=== PATIENT | male | born 1965 | race Caucasian/White ===

== ENCOUNTER 2020-04-19 21:37 | Inpatient (IN) | payer MEDICARE, MEDICAID ==
[~2020-04-19] VITALS: Ht 180.3 cm; Wt 87.8 kg
[~2020-04-19 21:37] MED LIST: ASPI81TA26 PO; ATOR1TAB19 PO; HumaLOG INSULIN (NovoLOG) PER UNIT SC SCH; LIDO1PAD TOP; OXYB15TA14 PO; SODI325T9 PO
[2020-04-20 00:10] VITALS: BP 106/45
[2020-04-20] MEDS ORDERED: ACETAMINOPHEN TAB 650MG DOSE (2X325MG) PO PRN (00:45)
[2020-04-20] MEDS ORDERED: GLUCAGON INJ 1MG VIAL SC PRN (00:45)
[2020-04-20] MEDS ORDERED: DEXTROSE 50% 50 ML SYRINGE IV PRN (00:45)
[2020-04-20] MEDS ORDERED: MAALOX 30 ML SUSP *UDC PO PRN (00:45)
[2020-04-20] MEDS ORDERED: VANCOMYCIN HCL 1,000 MG, VIAL MATE ADAPTER 1 EACH in NS 250 ML IV SCH (00:45)
[2020-04-20] MEDS ORDERED: GLUCOSE 4GM CHEW TABLET PO PRN (00:45)
[2020-04-20] MEDS ORDERED: FOSF3PAC2 PO (01:19)
[2020-04-20] MEDS ORDERED: C 50TAB PO (01:19)
[2020-04-20] MEDS ORDERED: GABA-1171 PO (01:19)
[2020-04-20] MEDS ORDERED: LIDO1PAD TOP (01:19)
[2020-04-20] MEDS ORDERED: VITA50005 PO (01:19)
[2020-04-20] MEDS ORDERED: POTA10CA32 PO (01:19)
[2020-04-20] MEDS ORDERED: LOMO2.5T PO (01:19)
[2020-04-20 02:07] LABS: HEMOGLOBIN A1c 5.4 %
[2020-04-20] MEDS ORDERED: LIDOCAINE 5% (LIDODERM) PATCH TOP PRN (02:20)
[2020-04-20] MEDS ORDERED: LOMOTIL 2.5MG/0.025MG TABLET PO PRN (02:20)
[2020-04-20] MEDS ORDERED: GABAPENTIN 100 MG CAP PO PRN (02:20)
[2020-04-20] MEDS: ATORVASTATIN 10 MG TAB PO SCH ×2 (02:20→22:11)
[2020-04-20 02:34] LABS: ALBUMIN 1.4 GM/DL (3.2-5.2); BILIRUBIN,TOTAL 0.2 MG/DL (0.2-1.0); CALCIUM LEVEL 7.5 MG/DL (8.5-10.1); CREATININE FOR GFR 4.64 MG/DL (0.70-1.30); GLOMERULAR FILTRATION RATE 14.1 (>56); POTASSIUM SERUM 3.3 MEQ/L (3.5-5.1); TOTAL PROTEIN 6.8 GM/DL (6.4-8.2)
[2020-04-20 02:57] LABS: BASO # 0.1 10^3/uL (0.0-0.2); BASO % 0.5 % (0.0-1.0); EOS # 0.4 10^3/uL (0.0-0.5); EOS % 1.9 % (0.0-3.0); HEMATOCRIT 30.5 % (42.0-52.0); HEMOGLOBIN 9.3 g/dl (13.5-17.5); LYMPH # 3.2 10^3/uL (1.5-5.0); LYMPH % 15.5 % (24.0-44.0); MEAN CORPUSCULAR HEMOGLOBIN 25.9 pg (27.0-33.0); MEAN CORPUSCULAR HGB CONC 30.5 g/dl (32.0-36.5); MONO # 0.8 10^3/uL (0.0-0.8); MONO % 3.8 % (2.0-8.0); NEUTROPHILS # 15.9 10^3/uL (1.5-8.5); NEUTROPHILS % 77.8 % (36.0-66.0); PLATELET COUNT, AUTOMATED 401 10^3/uL (150-450); RED BLOOD COUNT 3.59 10^6/uL (4.30-6.10); WHITE BLOOD COUNT 20.4 10^3/uL (4.0-10.0)
[2020-04-20] MEDS: POTASSIUM CHLORIDE 10 MEQ SR TABLET PO SCH ×3 (03:28→22:11)
[2020-04-20 06:00] VITALS: BP 104/52
--- NOTE | 2020-04-20 07:12 | HPEPDOC ---
[facility] Medical History & Physical Date of Admission Apr 20, 2020 Date of Service: Apr 20, 2020 Attending Physician: MARGARET HIGH MD History and Physical TIME OF SERVICE: 130am CHIEF COMPLAINT: sent to hospital by director financial analysis HISTORY OF PRESENT ILLNESS: This 64 yr old bed bound M has a right lateral malleolus ulcer, two right groin ulcers and large abdominal wound that occurred as a result of an adverse reaction to heparin; he is followed by . He was sent to [facility] by his director financial analysis who noticed some discharge leaking out of one of his groin wounds. The patient was evaluated by in the ER who requested transfer to [facility] because the pt is on PD and they dont have a Engraving Plate Maker. Per the patients vital signs were wnl. The 7main abnormalities in the patients blood work included a WBC# of 21, Hg of 9 & K of 2.1 and lactic acid was 1.5. His Cr and BUN were also elevated. CT of the abd/pelvis showed enlarged LN but no abscesses; the patient was started on Vancomycin and Zosyn. At the time of my evaluation the patient denied having f/c/n//v or an increased amount of pain from the wounds. He added that his WBC # is chronically elevated and that he was evaluated by a telecommunications network engineer for this in the past. REVIEW OF SYSTEMS: 12-point review of systems negative except as listed in HPI PAST MEDICAL/ SURGICAL HISTORY: MS complicated by paraplegia & neurogenic bladder ? 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 HOME MEDICATIONS: Please see below. PHYSICAL EXAMINATION: Vital Signs Date Time Temp Pulse Resp B/P (MAP) Pulse Ox O2 Delivery O2 Flow Rate FiO2 04/20/20 00:10 96.7 90 20 106/45 (65) 98 Room Air GENERAL APPEARANCE: well nourished & developed / NAD HEENT: EOMI / MMM&P CARDIOVASCULAR: RRR/NMG LUNGS: CTAB on RA ABDOMEN: obese/ / (the patient showed me a picture of his abdominal wound which is large and extends to the muscular layers of the abdomen) MUSCULOSKELETAL: L AKA / he is not able to lift his R leg / his right hand is weak INTEGUMENT: wound at right ankle covered with clean and dry dressings / 2 wounds at right upper mid thigh covered with clean and dry dressings NEUROLOGICAL: CN 2-12 grossly intact / speech not dysarthric PSYCHIATRIC: A&O x 3 /able to understand and follow all commands LABORATORY DATA: 04/20/20 01:41 04/20/20 02:50 IMAGING: will ask RNs to have images from CT scan uploaded into our system MICROBIOLOGY: Blood cx pending ASSESSMENT: is a 64 yr old w a hx of MS, ESRD on PD, HTN, PVD and multiple wounds who was stent from [facility] where he presented for evaluation of an infected chronic groin wound; transfer was requested to [facility] for Nephro eval bc he is on PD. PLAN: 1 Chronic right lateral malleolus ulcer, two right groin ulcers and large abdominal wounds Plan: admit to medical floor / will hold off additional abx pending eval by / will ask RNs to have images uploaded 2 Acute Anemia Plan f/u CBC, iron studies, stool occult and SFRT 3 Chronic leukocytosis Reviewed blood work in [facility] WBC # has been elevated since 2015 Plan: f/u blood cx 4 Chronic Hypokalemia c/w K supplements 5 ESRD on PD Nephro consult 6 PVD Aspirin & Aspirin 7 Neuropathy Gabapentin DVT px w SCDs/TEDs Dispo: home after at least 2 midnights stay Home Medications Scheduled Ascorbic Acid (Vitamin C) 500 Mg Tablet, 500 MG PO DAILY Aspirin (Aspirin EC) 81 Mg Tablet.dr, 81 MG PO DAILY Atorvastatin Calcium (Atorvastatin Calcium) 10 Mg Tablet, 10 MG PO QHS Ergocalciferol (Vitamin D2) (Vitamin D2) 50,000 Units Cap, 50,000 UNITS PO QWEEK SUNDAYS Fosfomycin Tromethamine (Fosfomycin Tromethamine) 3 Gram Packet, 3 GM PO QWEEK FRIDAYS Potassium Chloride (Potassium Chloride) 10 Meq Capsule.er, 20 MEQ PO BID Scheduled PRN Diphenoxylate HCl/Atropine (Lomotil 2.5-0.025 mg Tablet) 1 Each Tablet, 1 TAB PO TID PRN for DIARRHEA Gabapentin (Gabapentin) 100 Mg Capsule, 100 MG PO TID PRN for PAIN Lidocaine (Lidocaine) 5% Adh..patch, 1 PATCH TOP DAILY PRN for PAIN APPLY TO RIGHT KNEE, RIGHT ANKLE OR BACK Allergies Coded Allergies: latex (Verified Allergy, Intermediate, 12/18/19) heparin (Verified Allergy, Mild, 12/18/19) A-FIB/CHADSVASC A-FIB History Current/History of A-Fib/PAF?: No Current PO Anticoag Therapy: MARGARET Buckley MD Apr 20, 2020 07:12
[2020-04-20] MEDS ORDERED: HumaLOG INSULIN (NovoLOG) PER UNIT SC SCH (07:30)
[2020-04-20] MEDS: ASCORBIC ACID 500 MG TAB PO SCH (09:43)
[2020-04-20] MEDS: ASPIRIN 81 MG ENTERIC TAB PO SCH (09:43)
[2020-04-20] MEDS ORDERED: ONDANSETRON 4MG/2ML VIAL IV PRN (12:00)
--- NOTE | 2020-04-20 12:33 | CR ---
CONSULTATION DATE: 04/20/2020 REQUESTING PHYSICIAN: MARGARET HIGH MD REASON FOR CONSULTATION: Management of endstage renal disease on peritoneal dialysis. CHIEF COMPLAINT: Infected wound. HISTORY OF PRESENT ILLNESS: Mr. Mena is well-known to me. He is a 54-year-old male with endstage renal disease on peritoneal dialysis and multiple sclerosis complicated by paraplegia, chronic bed-ridden state and neurogenic bladder requiring suprapubic catheterization, peripheral vascular disease, recurrent chronic wounds, history of remote diabetes, and other comorbid conditions mentioned below. The patient sees Dr. Castanon for wound care including two right groin ulcers and an abdominal wound as well. He was sent to the hospital by his Wound Care Nurse for concern of some purulent discharge from one of the right groin wounds. Initially, he went to [facility] and he was transferred to [facility] for dialysis during his hospitalization. Laboratory studies showed leukocytosis with white count of 20,000, mild anemia with iron deficiency and laboratory studies that are consistent with his endstage renal disease. The patient is pending a wound consult with Dr. Castanon and he was started on broad spectrum empiric antibiotics and Nephrology evaluation was requested for the management of his endstage renal failure on peritoneal dialysis. PAST MEDICAL AND PAST SURGICAL HISTORY: Multiple sclerosis complicated by paraplegia and neurogenic bladder, status post suprapubic catheter placement, endstage renal disease on peritoneal dialysis with peritoneal dialysis catheter, hypertension, peripheral vascular disease, history of line infection, left above knee amputation, chronic right lateral malleolus ulcer, groin ulcers, abdominal wound, diabetic neuropathy, remote history of diabetes mellitus, history of obesity, history of scrotal gangrene and status post pacemaker placement, anemia of chronic renal failure along with iron deficiency, secondary hyperparathyroidism of renal origin. SOCIAL HISTORY: He is disabled. He does not smoke, drink or use drugs. FAMILY HISTORY: No family history of endstage renal disease. ALLERGIES: Heparin and latex. HOME MEDICATIONS: 1. Vitamin C 500 mg p.o. daily. 2. Aspirin 81 mg p.o. daily. 3. Atorvastatin 10 mg p.o. q.h.s. 4. Vitamin D2 50,000 units p.o. q. weekly. 5. Fosfomycin 3 gram packet once a week on Sunday. 6. Potassium chloride 20 mEq p.o. twice daily. 7. Gabapentin p.r.n. REVIEW OF SYSTEMS: Constitutional: He denies fevers or chills. Eyes: He denies visual changes or tearing. ENT: He denies odynophagia or rhinorrhea. Cardiac: He denies chest pain or palpitations. He has significant peripheral vascular disease. Respiratory: He denies shortness of breath or cough. Gastrointestinal: He denies nausea, vomiting or diarrhea. Genitourinary: He reports chronic suprapubic catheter. Endocrine: He has secondary hyperthyroidism of renal origin. He has a remote history of diabetes. Neurologic: Multiple sclerosis, paraplegia. Musculoskeletal: He is chronically bed-ridden. He has a left above the knee amputation. He denies any swelling in the right lower extremity. Skin and soft tissue: He reports chronic wounds and ulcers for which he follows with wound care. Hematologic: He reports anemia and allergy to iron. He denies anticoagulant use. The remainder of review of systems is negative or as per HPI. PHYSICAL EXAMINATION: VITAL SIGNS: Temperature is 97.5, pulse is 105, respiratory rate is 20, blood pressure is 104/52, saturating 96% on room air. GENERAL: Patient is seen lying completely flat in bed with the head of the bed not elevated at all, appears older than stated age and chronically ill. HEENT: Extraocular muscles are intact. Tongue is moist. NECK: Supple. Jugular veins are not elevated. HEART: Heart sounds are mildly tachycardic, S1 and S2. There is no edema in the right lower extremity nor in the left stump. LUNGS: Breath sounds are clear to auscultation bilaterally. No crackles or rales. He is sitting comfortable on room air. ABDOMEN: Obese, there is peritoneal dialysis catheter with intact exit site and he has a suprapubic catheter draining urine. MUSCULOSKELETAL: There is a left above the knee amputation. His right leg has no edema. There are dressings on his groin wounds on the right side. He has decreased lean muscle mass. NEUROLOGIC: He is oriented x3, interactive and at baseline mentation. PSYCHIATRIC: Appropriate mood and affect. LABORATORY DATA: Sodium is 133, potassium is 3.3, BUN 47, creatinine 4.6, bicarbonate 23, iron is 20, transferrin saturation is 22%, albumin is 1.4, hemoglobin 9.3, white count is 20. Blood cultures are pending. INPATIENT MEDICATIONS: Tylenol p.r.n., Mylanta p.r.n., vitamin C 500 mg p.o. daily, aspirin 81 mg p.o. daily, atorvastatin 10 mg p.o. q.h.s., Fosfomycin 3 grams p.o. on Fridays, Gabapentin p.r.n., potassium chloride 20 mEq p.o. b.i.d. vitamin D 50,000 units p.o. Sunday. PROBLEMS: 1. Endstage renal disease on peritoneal dialysis. Orders are written for peritoneal dialysis with five exchanges daily with 2 liter volume of each exchange with 2.5% Dianeal. His volume status is well-compensated. He continues on his chronic potassium supplementation and his electrolytes are otherwise acceptable. 2. Anemia related to chronic renal failure and chronic iron deficiency. We have tried giving him Venofer in the outpatient setting but the patient could not tolerate it. He also could not tolerate oral iron. He receives Mircera and he is not yet due for a repeat dose. If his stay in the hospital is prolonged, I will order Aranesp. 3. Hypokalemia, continue current potassium supplementation and continue peritoneal dialysis prescription. 4. Chronic wound. The patient is hemodynamically stable. He has a leukocytosis but it appears to be somewhat chronic. He is pending a teleconsult with Dr. Castanon and antibiotics will be per the primary service. His albumin is very low. He is encouraged for a protein rich diet to help with his long-term wound healing. His blood cultures are pending. Thank you for involving me in the care of Mr. Mena, I will be happy to follow him along with you.
--- NOTE | 2020-04-20 12:43 | IPNPDOC ---
Text Note Date of Service The patient was seen on 04/20/20. NOTE SUBJECTIVE: -No acute complaints this AM -Afebrile, normotensive, on room air. Reports that he presented to the hospital after his wound care nurse suggested it for evaluation of his chronic wounds. Will consult Dr. Castanon who sees him in the outpatient setting OBJECTIVE: GENERAL APPEARANCE: chronically debilitated appearing, not ill appearing at this time, NAD HEENT: NCAT, PERRLA, EOMI CARDIOVASCULAR: RRR/NMG LUNGS: CTAB on RA ABDOMEN: Obese. Multiple dressings for abdominal wall wounds. Has PD catheter in place. Showed me a picture of his abdominal wound which is large and extends to the muscular layers of the abdomen and reported that it started after a heparin injection. MUSCULOSKELETAL: L AKA. R leg and right hand chronic weakness INTEGUMENT: wound at right ankle covered with clean and dry dressings / 2 wounds at right upper mid thigh covered with clean and dry dressings NEUROLOGICAL: CN 2-12 grossly intact / speech not dysarthric PSYCHIATRIC: A&O x 3 /able to understand and follow all commands LABORATORY DATA: Reviewed WBC 20.4 MICROBIOLOGY: Blood cx NGTD ASSESSMENT: 64 yr old w a hx of MS, ESRD on PD, HTN, PVD and multiple wounds who was sent f [facility] where he presented for evaluation of an infected chronic groin wound; transfer was requested to [facility] for Nephro eval bc he is on PD. PLAN: 1 Chronic right lateral malleolus ulcer, two right groin ulcers and large abdominal wounds -hold off additional abx pending eval by -Has a history of chronic leukocytosis so will await Lg schulz, BCx that will direct abx therapy initiation. Will also check ESR and CRP 2 Acute Anemia -Has known JONATHON but intolerant to PO iron -on aranesp per nephrology -anemia at recent baseline -f/u anemia studies 3 Chronic leukocytosis -Reviewed blood work in [facility] WBC # has been elevated since 2015 -f/u blood cx -F/u Dr. Lg schulz 4 Chronic Hypokalemia c/w K supplements 5 ESRD on PD Nephro consult 6 PVD Aspirin & Aspirin 7 Neuropathy Gabapentin DVT px w SCDs/TEDs Dispo: home after at least 2 midnights stay VS,Fishbone, I+O VS, Fishbone, I+O Laboratory Tests 04/20/20 01:41 04/20/20 02:50 Vital Signs Date Time Temp Pulse Resp B/P (MAP) Pulse Ox O2 Delivery O2 Flow Rate FiO2 04/20/20 06:00 97.5 105 20 104/52 (69) 96 04/20/20 00:10 Room Air I&O- Last 24 Hours up to 6 AM 04/20/20 06:00 Intake Total 180 ml Output Total 100 ml Balance 80 ml JUDI HANSON MD Apr 20, 2020 12:43
[2020-04-20 14:00] VITALS: BP 103/48
[2020-04-20] MEDS: NYSTATIN 100,000 UNITS/GM TOPICAL PWD 15 GM TOP SCH (18:19)
[2020-04-20] MEDS: **NOTE PATIENT COMMENT** MISC XX SCH (21:00)
[2020-04-20 22:00] VITALS: BP 101/52
[2020-04-21 06:00] VITALS: BP 109/48
[2020-04-21 06:01] LABS: HEMATOCRIT 28.2 % (42.0-52.0); HEMOGLOBIN 8.6 g/dl (13.5-17.5); MEAN CORPUSCULAR HEMOGLOBIN 26.1 pg (27.0-33.0); MEAN CORPUSCULAR HGB CONC 30.5 g/dl (32.0-36.5); MEAN CORPUSCULAR VOLUME 85.5 fl (80.0-96.0); PLATELET COUNT, AUTOMATED 397 10^3/uL (150-450); WHITE BLOOD COUNT 14.4 10^3/uL (4.0-10.0)
[2020-04-21 06:16] LABS: CALCIUM LEVEL 7.4 MG/DL (8.5-10.1); CREATININE FOR GFR 4.52 MG/DL (0.70-1.30); GLOMERULAR FILTRATION RATE 14.5 (>56); POTASSIUM SERUM 3.4 MEQ/L (3.5-5.1)
[2020-04-21] MEDS: ASCORBIC ACID 500 MG TAB PO SCH (08:52)
[2020-04-21] MEDS: ASPIRIN 81 MG ENTERIC TAB PO SCH (08:52)
[2020-04-21] MEDS: NYSTATIN 100,000 UNITS/GM TOPICAL PWD 15 GM TOP SCH ×2 (08:52→21:44)
[2020-04-21] MEDS: POTASSIUM CHLORIDE 10 MEQ SR TABLET PO SCH ×2 (08:52→21:44)
--- NOTE | 2020-04-21 09:48 | CR ---
ADVANCED WOUND CARE CONSULTATION VIA TELEMEDICINE DATE: 04/20/2020 CONSULT REQUESTED BY: Dr. Dubose. REASON FOR CONSULTATION: Wound care recommendations. HISTORY OF PRESENT ILLNESS: A 54-year-old male with advanced MS, bedridden, has been seen in the clinic for multiple pressure injuries and skin wounds. These have been treated in the past with debridement at our clinic and the use of appropriate medicated foam dressings. Patient has missed several appointments due to transportation issues and compliance issues, but when last seen all wounds were stable and treatable as an outpatient. I asked the patient why he was hospitalized and he dictated a visiting nurse told him his potassium was low and that his wounds were a problem. Admitting potassium was 2.2, which has now been improved with supplements. Survey of his wounds does not indicate a reason for hospitalization. There is no indication for I.V. antibiotics for his wounds treatment. Specifically, the patient has a large abdominal wound measuring 17.5 cm x 9.5 cm with a wound depth of 0.6 cm. This wound has been debrided in the past. There is an area of necrotic full thickness tissue on the superior portion. He has had this in the past and this is easily excised with scissors and forceps and can be done in the clinic when he is discharged or if need be a surgical consult can be obtained. Patient has a right groin wound measuring 3.0 cm x 1.5 cm and a right lateral malleolar wound measuring 1.0 cm x 1.0 cm. Patient has intertrigo of the inguinal areas involving skin folds as he is massively obese. Treatment for all wounds: cleaned with Vashe wound cleanser for 10 minutes, then wounds can be covered with Hydrofera Blue transfer and an extra absorb outer dressing. If transfer is not available, Hydrofera Blue Classic can be substituted. Dressing should be changed on an every other day basis. InterDry should be used for the intertrigo wounds. This is available in the hospital, it comes in a sheet. It is placed between the skin folds with approximately 3 to 4 cm of the product exposed to the air, this allows for wicking, the product is medicated with silver and is quite affective in this treatment for this problem. Intertrigo is caused by moisture and skin friction with a secondary bacterial and/or fungal component. Nystatin is not indicated; this will not absorb moisture cakes, is messy. When the patient is ready for discharge, please notify us and he can be followed up at our clinic for appropriate wound care. Thank you for this consult. SILVESTRE
--- NOTE | 2020-04-21 12:52 | IPNPDOC ---
Text Note Date of Service The patient was seen on 04/21/20. NOTE SUBJECTIVE: -No acute complaints this AM -Afebrile, normotensive, on room air. -Had wound consult with Dr. Castanon--> consulting gen surg this AM to evaluate abdominal wounds OBJECTIVE: GENERAL APPEARANCE: chronically debilitated appearing, not ill appearing at this time, NAD HEENT: NCAT, PERRLA, EOMI CARDIOVASCULAR: RRR/NMG LUNGS: CTAB on RA ABDOMEN: Obese. Multiple dressings for abdominal wall wounds. Has PD catheter in place. Showed me a picture of his abdominal wound which is large and extends to the muscular layers of the abdomen and reported that it started after a heparin injection. MUSCULOSKELETAL: L AKA. R leg and right hand chronic weakness INTEGUMENT: wound at right ankle covered with clean and dry dressings / 2 wounds at right upper mid thigh covered with clean and dry dressings NEUROLOGICAL: CN 2-12 grossly intact / speech not dysarthric PSYCHIATRIC: A&O x 3 /able to understand and follow all commands LABORATORY DATA: Reviewed WBC 14 MICROBIOLOGY: Blood cx NGTD ASSESSMENT: 64 yr old w a hx of MS, ESRD on PD, HTN, PVD and multiple wounds who was sent from [facility] where he presented for evaluation of an infected chronic groin wound; transfer was requested to [facility] for Nephro eval bc he is on PD. PLAN: 1 Chronic right lateral malleolus ulcer, two right groin ulcers and large abdominal wounds -hold off additional abx pending eval by gen surg -Trend ESR and CRP 2 Acute Anemia -Has known JONATHON but intolerant to PO iron -on aranesp per nephrology -anemia at recent baseline -f/u anemia studies 3 Chronic leukocytosis -[facility] WBC # has been elevated since 2015 -f/u blood cx -F/u surgical eval 4 Chronic Hypokalemia c/w K supplements 5 ESRD on PD Nephro consult 6 PVD Aspirin & Aspirin 7 Neuropathy Gabapentin DVT px w SCDs/TEDs Dispo: home after at least 2 midnights stay VS,Fishbone, I+O VS, Fishbone, I+O Laboratory Tests 04/21/20 05:40 Vital Signs Date Time Temp Pulse Resp B/P (MAP) Pulse Ox O2 Delivery O2 Flow Rate FiO2 04/21/20 06:00 97.1 91 20 109/48 (68) 96 04/20/20 14:00 Room Air I&O- Last 24 Hours up to 6 AM 04/21/20 06:00 Intake Total 7980 ml Output Total 4650 ml Balance 3330 ml JUDI HANSON MD Apr 21, 2020 09:30
--- NOTE | 2020-04-21 13:04 | CR.PDOC ---
General Surgery Consultation Date of Consultation 04/21/20 History and Physical General Surgery Dr Coronel. HISTORY OF PRESENT ILLNESS: The pt is a 64 yo male with MS, non ambulatory, h/o chronic wounds followed by Dr Castanon as outpt, with right lateral malleolus ulcer, two right groin ulcers and large abdominal wound that occurred as a result of an adverse reaction to heparin. He was sent to [facility] by his guide escort who noticed increased discharge from wounds. The pt was transferred to [facility] 04/20/20 because the pt is on PD and [facility] does not have a Emergency Room Physician Assistant. Labs there indicated WBC 21, Hgb9, K of 2.[address] of the abd/pelvis with no abscess. General Surgery is consulted for abdominal wounds. 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 HOME MEDICATIONS: Please see below. REVIEW OF SYSTEMS: As noted in HPI otherwise 10 pt ROS unremarkable. PHYSICAL EXAMINATION: Afebrile VSS GENERAL APPEARANCE:Patient seen, laying in bed, awake, alert, and oriented. Comfortable, in no acute distress. SKIN: HEENT: Normocephalic, atraumatic. [place] palpebral conjunctiva, anicteric sclerae. Lips and mucosa appear moist. NECK: Supple, no thyromegaly. LUNGS: Clear to auscultation bilaterally. No wheezing appreciated. HEART: S1S2 Regular rate and rhythm ABDOMEN: Abdomen is soft, NT. No umbilical or groin herniations, nondistended. No rebound or guarding. Suprapubic catheter and PD catheter in place. Abdominal wound lower left quadrant with an area of necrotic tissue/eschar on the upper portion of the wound and also a few areas on the medial portion of the wound. Hydrofera blue dressing in place. EXTREMITIES: Lt AKA WBC 14.4 IMPRESSION AND PLAN: Chronic abdominal wounds. The pt was evaluated by Dr Castanon, continue wound care as per Dr. Castanon. The patient is reviewed and examined as per Dr. Coronel. Plan is for a bedside debridement later today or tomorrow. Vital Signs Vital Signs Date Time Temp Pulse Resp B/P (MAP) Pulse Ox O2 Delivery O2 Flow Rate FiO2 04/21/20 06:00 97.1 91 20 109/48 (68) 96 04/20/20 14:00 Room Air I&Os I&O- Last 24 Hours up to 6 AM 04/21/20 06:00 Intake Total 7980 ml Output Total 4650 ml Balance 3330 ml Laboratory Data Labs 24H Laboratory Tests 2 04/21/20 05:40: Nucleated Red Blood Cells % (auto) 0.0, Anion Gap 8, Glomerular Filtration Rate 14.5L, Calcium Level 7.4L CBC/BMP Laboratory Tests 04/21/20 05:40 Microbiology Microbiology 04/20/20 Stool Occult Blood (LAURA) - Final, Complete 04/20/20 Blood Culture - Preliminary, Resulted No growth after 24 hours . All specim... Home Medications Scheduled Ascorbic Acid (Vitamin C) 500 Mg Tablet, 500 MG PO DAILY, (Reported) Aspirin (Aspirin EC) 81 Mg Tablet.dr, 81 MG PO DAILY, (Reported) Atorvastatin Calcium (Atorvastatin Calcium) 10 Mg Tablet, 10 MG PO QHS, (Reported) Ergocalciferol (Vitamin D2) (Vitamin D2) 50,000 Units Cap, 50,000 UNITS PO QWEEK, (Reported) FRIDAYS Fosfomycin Tromethamine (Fosfomycin Tromethamine) 3 Gram Packet, 3 GM PO QWEEK, (Reported) FRIDAYS Potassium Chloride (Potassium Chloride) 10 Meq Capsule.er, 20 MEQ PO BID, (Reported) Scheduled PRN Diphenoxylate HCl/Atropine (Lomotil 2.5-0.025 mg Tablet) 1 Each Tablet, 1 TAB PO TID PRN for DIARRHEA, (Reported) Gabapentin (Gabapentin) 100 Mg Capsule, 100 MG PO TID PRN for PAIN, (Reported) Lidocaine (Lidocaine) 5% Adh..patch, 1 PATCH TOP DAILY PRN for PAIN, (Reported) APPLY TO RIGHT KNEE, RIGHT ANKLE OR BACK Allergies Coded Allergies: latex (Verified Allergy, Intermediate, 12/18/19) heparin (Verified Allergy, Mild, 12/18/19) Attending Note Attending Note I agree with note as written by COLBY Mckinnon. Patient with chronic wound of left lower quadrant abdominal wall for some months. Having monthly visits at wound care center. Exam shows rim of necrotic eschar on upper outer aspect of wound as well as several smaller areas of necrosis medially and medial inferior aspect of wound. No cellulitis or signs of abscess. Patient counselled for sharp debridement and agrees. I will return later in day to perform. Elif Salinas Apr 21, 2020 12:21 Mode Coronel Apr 21, 2020 21:53
[2020-04-21 14:00] VITALS: BP 121/57
[2020-04-21] MEDS ORDERED: LIDOCAINE 2% MDV 20ML VIAL XX ONE (16:45)
--- NOTE | 2020-04-21 19:57 | IPN ---
INPATIENT PROGRESS NOTE DATE: 04/21/2020 SUBJECTIVE: Patient is seen and examined this morning at the bedside. He denies any complaints. General surgery has seen him for his abdominal wounds and he is pending debridement at the bedside. He remains afebrile, hemodynamically stable, and his peritoneal dialysis exchanges have been uneventful. He denies any shortness of breath. OBJECTIVE: VITAL SIGNS: Temperature 97.1, pulse 91, respiratory rate 20, blood pressure 109/48, saturating 98% on room air. REVIEW OF INTAKE AND OUTPUT: Shows fairly equivalent fluid balance. Weight in the bed scale today is 88 kg. GENERAL: Patient is seen lying down, middle-age male, chronically debilitated appearing, appears older than stated age, but not acutely ill, comfortable and smiling. HEENT: Extraocular muscles are intact. Tongue is moist. Neck is supple. Jugular veins are not elevated. HEART: Sounds are regular S1, S2. There is no edema of the right lower extremity. LUNGS: Clear to auscultation bilaterally. No crackle or rale. He is comfortable on room air. ABDOMEN: Obese. There are dressings over his abdominal wound. His PD catheter is in place with intact exit site. There is peritoneal dialysis fluid in-situ. There is a suprapubic bladder catheter. EXTREMITIES: Show left above the knee amputation and right lower extremity without edema. There is lean muscle wasting. SKIN: He has dressings on his wounds on the abdomen and on the right upper thigh and right ankle. NEUROLOGIC: He is oriented x3, interactive, conversational and at baseline mentation. He has chronic weakness on the right side. LABORATORY STUDIES: White count 14.4, hemoglobin 8.6, platelets 397,000. Sodium 133, potassium 3.4, bicarbonate 27. Stool occult blood negative. Blood cultures no growth for 24 hours times one set. INPATIENT MEDICATIONS: Reviewed by myself. Aranesp is ordered for tomorrow. The remainder of his medications are unchanged as compared to yesterday. PROBLEMS: 1. End-stage renal disease on peritoneal dialysis: Patient's PD exchanges have been uneventful. Continue five exchanges daily with 2 liter volume of each exchange with 2.5% DIANEAL. Volume status is compensated. He continues on chronic potassium supplementation and his electrolytes are otherwise acceptable. 2. Anemia related to chronic renal failure and chronic iron deficiency: Patient has been intolerant in the outpatient setting of both I.V. iron and oral iron. Continue this time with Aranesp; a dose is ordered for tomorrow. I would transfuse him for hemoglobin less than 8. 3. Hypokalemia: Continue current potassium supplementation. 4. Chronic wounds of the right groin and of the abdomen: Patient follows up with wound care as an outpatient and patient was also evaluated by general surgery and is pending debridement of his abdominal wounds. He has a chronic leukocytosis. There are no signs of sepsis. He remains afebrile and hemodynamically stable. Continue with local wound care as per Dr. Castanon and debridement as per general surgery. 5. Chronic urinary retention: Patient has chronic suprapubic bladder catheter.
[2020-04-21] MEDS: **NOTE PATIENT COMMENT** MISC XX SCH (21:00)
[2020-04-21] MEDS: ATORVASTATIN 10 MG TAB PO SCH (21:43)
[2020-04-21] MEDS: MUPIROCIN 2% OINT 22 GM TUBE TOP SCH (21:44)
[2020-04-21 22:00] VITALS: BP 112/67
[2020-04-22 06:00] VITALS: BP 114/68
--- NOTE | 2020-04-22 08:01 | RO ---
OPERATIVE NOTE DATE OF OPERATION: 04/21/2020 PREOPERATIVE DIAGNOSIS: Chronic abdominal wound with necrotic eschar. POSTOPERATIVE DIAGNOSIS: Chronic abdominal wound with necrotic eschar. PROCEDURE PERFORMED: Sharp debridement of approximately 20 square centimeters of eschar from a left lower quadrant chronic wound. SURGEON: Mode Coronel MD ANESTHESIA: Topical 2% Xylocaine. INDICATIONS FOR THE PROCEDURE: The patient is a 54-year-old man with multiple medical problems including multiple sclerosis with end-stage renal disease on peritoneal dialysis, hypertension, peripheral vascular disease and neuropathy who has a history of some chronic skin wounds including a large wound of the left lower quadrant that has been treated for several months at least on an outpatient basis. He was admitted recently for management of multiple issues and he was noted to have a significant eschar at his abdominal wound. I am now consulted and will perform a bedside debridement of the lower abdominal wound. OPERATIVE PROCEDURE: The patient was examined and treated in the bed. His old dressing was removed. Inspection showed an irregular wound approximately 20 cm x 15 cm. Across the upper/outer edge of the wound is a band of necrotic eschar approximately 2-2.5 cm in width maximally by 7-8 cm in length. There is a small rim of eschar in the upper/inner edge of the wound and also several small areas of necrosis in the lower/inner aspect of the wound. The wound was covered with sterile gauzes soaked with 2% lidocaine and these were allowed to remain in place for a few minutes. Then using sharp scissors and pickups, the necrotic debris was removed sharply from all areas identified. There was a small amount of necrotic underlying fatty tissue as well that was debrided in several areas. In total, the area debrided was approximately 20 square centimeters. The patient tolerated the procedure well. His wound was covered with saline-moistened gauze, and I requested that the nurse replace his dressing with the ordered dressings. SILVESTRE
[2020-04-22 08:36] LABS: HEMATOCRIT 29.5 % (42.0-52.0); HEMOGLOBIN 9.1 g/dl (13.5-17.5); MEAN CORPUSCULAR HEMOGLOBIN 26.8 pg (27.0-33.0); MEAN CORPUSCULAR HGB CONC 30.8 g/dl (32.0-36.5); PLATELET COUNT, AUTOMATED 454 10^3/uL (150-450); RED BLOOD COUNT 3.39 10^6/uL (4.30-6.10); WHITE BLOOD COUNT 17.4 10^3/uL (4.0-10.0)
[2020-04-22] MEDS: ASCORBIC ACID 500 MG TAB PO SCH (08:51)
[2020-04-22] MEDS: POTASSIUM CHLORIDE 10 MEQ SR TABLET PO SCH (08:51)
[2020-04-22] MEDS: ASPIRIN 81 MG ENTERIC TAB PO SCH (08:51)
[2020-04-22] MEDS: NYSTATIN 100,000 UNITS/GM TOPICAL PWD 15 GM TOP SCH (08:52)
[2020-04-22] MEDS: MUPIROCIN 2% OINT 22 GM TUBE TOP SCH (08:54)
[2020-04-22 08:59] LABS: CALCIUM LEVEL 7.7 MG/DL (8.5-10.1); CREATININE FOR GFR 4.34 MG/DL (0.70-1.30); GLOMERULAR FILTRATION RATE 15.2 (>56)
[2020-04-22] MEDS ORDERED: DARBEPOETIN 100 MCG/0.5 ML *NON-DIALYSIS* SYRINGE (J0881) SC SCH (09:00)
[2020-04-22] MEDS ORDERED: NYST10006 TOP (10:31)
--- NOTE | 2020-04-22 11:08 | DS.PDOC ---
Discharge Summary General Date of Admission Apr 20, 2020 at 00:08 Date of Discharge 04/22/2020 Attending Physician: JUDI HANSON MD Discharge Summary PROCEDURES PERFORMED DURING STAY: L abdominal wound debridement ADMITTING DIAGNOSES: Infected abdominal wound DISCHARGE DIAGNOSES: Infected L abdominal wound MS complicated by paraplegia & neurogenic bladder ? requiring suprapublic catheter ESRD on PD HTN PVD Hx of line infection on suppressive ciprofloxacin weekly L AKA Chronic right lateral malleolus ulcer, two right groin ulcers and large abdominal wounds Diabetic neuropathy Remote hx of DM (resolved after he lost weight) Obesity resolved after he lost weight s/p Pacemaker COMPLICATIONS/CHIEF COMPLAINT: Multiple Infected Wounds. HISTORY OF PRESENT ILLNESS: 64 yr old bed bound M has a right lateral malleolus ulcer, two right groin ulcers and large abdominal wound that occurred as a result of an adverse reaction to heparin; who follows with who was sent in to [facility] by his field sales manager who noticed some discharge leaking out of one of his wounds and while there was noted to be hypokalemic to 2.1 and admitted and repleted. Given that he has ESRD on PD he was transferred to [facility] for nephrology evaluation and management of PD and also wound evaluation. HOSPITAL COURSE: He arrived HDS and afebrile breathing comfortably on room air. He was evaluated by Dr. Castanon who recommended surgical evaluation for possible debridement of L abdominal wound. He was therefore evaluated by general surgery and had bedside wound debridement with Dr. Coronel. Of note, he has chronic leukocytosis that remained stable throughout his admission, was hemodynamically stable, afebrile without evidence of a systemic infection. He is now being discharged home and will follow up with with Dr. Castanon and PCP within 1 week of hospital discharge. DISCHARGE MEDICATIONS: Please see below. ALLERGIES: Please see below. PHYSICAL EXAMINATION ON DISCHARGE: VITAL SIGNS: Please see below. GENERAL APPEARANCE: Laying in bed, awake, alert, and oriented. Comfortable, in no acute distress. HEENT: Normocephalic, atraumatic. Bache palpebral conjunctiva, anicteric sclerae. Lips and mucosa appear moist. NECK: Supple, no thyromegaly. LUNGS: Clear to auscultation bilaterally. No wheezing appreciated. HEART: S1S2 Regular rate and rhythm ABDOMEN: Abdomen is soft, NT. No umbilical or groin hernia, nondistended. No rebound or guarding. Suprapubic catheter and PD catheter in place. Abdominal L abdominal wound with dressing in place, c/d/i. Hydrofera blue dressing in place. EXTREMITIES: s/p L AKA LABORATORY DATA: Please see below. IMAGING: None PROGNOSIS: Good ACTIVITY: As tolerated DIET: renal diet DISCHARGE PLAN: Home with services DISPOSITION: Home with services DISCHARGE INSTRUCTIONS: Home with services with close follow up with Dr. Castanon and PCP. ITEMS TO FOLLOWUP ON ON OUTPATIENT: Wound care clinic DISCHARGE CONDITION: Stable TIME SPENT ON DISCHARGE: 34 minutes. Vital Signs/I&Os Vital Signs Date Time Temp Pulse Resp B/P (MAP) Pulse Ox O2 Delivery O2 Flow Rate FiO2 04/22/20 06:00 98.1 90 19 114/68 (83) 97 Room Air I&O- Last 24 Hours up to 6 AM 04/22/20 06:00 Intake Total 53853 ml Output Total 71002 ml Balance -380 ml Laboratory Data Labs 24H Laboratory Tests 2 04/22/20 08:20: Nucleated Red Blood Cells % (auto) 0.0, Anion Gap 9, Glomerular Filtration Rate 15.2L, Calcium Level 7.7L CBC/BMP Laboratory Tests 04/22/20 08:20 Microbiology Microbiology 04/20/20 Stool Occult Blood ([facility]A) - Final, Complete 04/20/20 Blood Culture - Preliminary, Resulted No Growth after 48 hours. All Specime... Discharge Medications Scheduled Ascorbic Acid (Vitamin C) 500 Mg Tablet, 500 MG PO DAILY, (Reported) Aspirin (Aspirin EC) 81 Mg Tablet.dr, 81 MG PO DAILY, (Reported) Atorvastatin Calcium (Atorvastatin Calcium) 10 Mg Tablet, 10 MG PO QHS, (Reported) Ergocalciferol (Vitamin D2) (Vitamin D2) 50,000 Units Cap, 50,000 UNITS PO QWEEK, (Reported) FRIDAYS Fosfomycin Tromethamine (Fosfomycin Tromethamine) 3 Gram Packet, 3 GM PO QWEEK, (Reported) FRIDAYS Nystatin (Nystop) 60 Gm Powder, 0 DOSE TOP BID apply to sarah and neck Potassium Chloride (Potassium Chloride) 10 Meq Capsule.er, 20 MEQ PO BID, (Reported) Scheduled PRN Diphenoxylate HCl/Atropine (Lomotil 2.5-0.025 mg Tablet) 1 Each Tablet, 1 TAB PO TID PRN for DIARRHEA, (Reported) Gabapentin (Gabapentin) 100 Mg Capsule, 100 MG PO TID PRN for PAIN, (Reported) Lidocaine (Lidocaine) 5% Adh..patch, 1 PATCH TOP DAILY PRN for PAIN, (Reported) APPLY TO RIGHT KNEE, RIGHT ANKLE OR BACK Allergies Coded Allergies: latex (Verified Allergy, Intermediate, 12/18/19) heparin (Verified Allergy, Mild, 12/18/19) JUDI HANSON MD Apr 22, 2020 11:08
--- NOTE | 2020-04-22 20:30 | IPN ---
INPATIENT PROGRESS NOTE DATE: 04/22/2020 SUBJECTIVE: Eitan is seen and examined this morning at the bedside. His abdominal wounds were debrided yesterday by Dr. Coronel. Patient offers no complaints. His peritoneal dialysis exchanges have been uneventful. He received a dose of Aranesp this morning. He is discharge pending. OBJECTIVE: VITAL SIGNS: Temperature 98.1, pulse 90, respiratory rate 19, blood pressure 114/68, saturating 97% on room air. INTAKE AND OUTPUT: From yesterday is reviewed. Weight in the bed scale today is 87.8 kg. GENERAL: Patient is seen awake, alert, lying in bed, chronically debilitated male who appears older than stated age, and is in no apparent distress. HEENT: Extraocular muscles are intact. Tongue is moist. Neck is supple. Jugular veins are not elevated. HEART: Sounds are regular S1, S2. There is no edema of the right lower extremity. LUNGS: Clear to auscultation bilaterally. No crackle or rale or rhonchus. He is comfortable on room air. ABDOMEN: Obese. There are dressings over his abdominal wound and dressing over his PD catheter exit site. There is peritoneal dialysis fluid in-situ. There is a suprapubic bladder catheter. EXTREMITIES: Show left above the knee amputation and right lower extremity without edema. There is lean muscle wasting. There is also dressing on the right groin/right thigh wound. NEUROLOGIC: He is oriented x3, interactive, conversational and at baseline mentation. LABORATORY STUDIES: Today reveal sodium 135, potassium 4.0, bicarbonate 28. Hemoglobin 9.1, white count 17.4. Stool occult blood test returned negative. INPATIENT MEDICATIONS: Reviewed by myself. He received a dose of Aranesp 100 mcg subq today. The remainder of his medications are all unchanged as compared to yesterday. PROBLEMS: 1. End-stage renal disease on peritoneal dialysis: His PD exchanges have been uneventful. When he is home, he will go back to his usual cycler prescription. His volume status and electrolytes are all acceptable. 2. Anemia related to chronic renal failure and chronic iron deficiency with inflammatory state: He has been intolerant of oral and I.V. iron in the outpatient setting. We did give him a dose of Aranesp 100 mcg subq times one today. 3. Hypokalemia: Continue current potassium supplementation. 4. Chronic wounds of the right groin and the abdomen: The patient follows with Dr. Castanon for wound care and he is status post debridement of his abdominal wounds with Dr. Coronel. He has chronic leukocytosis, but there are no signs of systemic infection. DISPOSITION: Patient is acceptable for discharge from nephrology point of view.
[2020-04-23] MEDS ORDERED: FOSFOMYCIN TROMETHAMINE 3 GM POWDER PACKET (MONUROL) PO SCH (09:00)
[2020-04-23] MEDS ORDERED: VITAMIN D 50,000 UNITS CAPSULE (ERGOCALCIFEROL 1.25MG) PO SCH (09:00)
== END 2020-04-22 16:38 | disposition home health service (06) | DRG 300 ==
LOC: M MSPAV 04-20 00:08
PROVIDERS: ADMIT Internal Medicine; ATTEND Internal Medicine
PROC: 0HB7XZZ Excision of Abdomen Skin, External Approach (ICD-10-PCS; principal; 2020-04-21)
DX: I96 Gangrene, not elsewhere classified (principal); I12.0 Hypertensive chronic kidney disease with stage 5 chronic kidney disease or end stage renal disease; G82.20 Paraplegia, unspecified; N25.81 Secondary hyperparathyroidism of renal origin; L98.498 Non-pressure chronic ulcer of skin of other sites with other specified severity; E87.6 Hypokalemia; G35 Multiple sclerosis; N31.9 Neuromuscular dysfunction of bladder, unspecified; D63.1 Anemia in chronic kidney disease; R33.9 Retention of urine, unspecified; L30.4 Erythema intertrigo; D72.829 Elevated white blood cell count, unspecified; T45.515A Adverse effect of anticoagulants, initial encounter; L89.512 Pressure ulcer of right ankle, stage 2; Z95.0 Presence of cardiac pacemaker; Z89.612 Acquired absence of left leg above knee; Z79.82 Long term (current) use of aspirin; Z79.899 Other long term (current) drug therapy; Z88.8 Allergy status to other drugs, medicaments and biological substances; Z91.040 Latex allergy status

== ENCOUNTER 2020-07-08 13:19 | Inpatient (IN) | payer MEDICARE, MEDICAID ==
[~2020-07-08] VITALS: Ht 180.3 cm; Wt 96.6 kg
[~2020-07-08 13:19] MED LIST changes: +C 50TAB PO; +FOSF3PAC2 PO; +GABA-1171 PO; -HumaLOG INSULIN (NovoLOG) PER UNIT SC SCH; +LOMO2.5T PO; +NYST10006 TOP; +POTA10CA32 PO; +VITA50005 PO
[2020-07-08] MEDS ORDERED: TIZA2TA PO (13:35)
[2020-07-08] MEDS ORDERED: VANCOMYCIN 1000MG/20ML VIAL IP ONE (14:35)
[2020-07-08] MEDS ORDERED: GENTAMICIN SULF 80MG/2ML VIAL IP ONE (14:45)
[2020-07-08 14:46] LABS: BASO # 0.1 10^3/uL (0.0-0.2); BASO % 0.3 % (0.0-1.0); EOS # 0.1 10^3/uL (0.0-0.5); EOS % 0.7 % (0.0-3.0); HEMATOCRIT 29.2 % (42.0-52.0); HEMOGLOBIN 9.9 g/dl (13.5-17.5); LYMPH # 2.7 10^3/uL (1.5-5.0); LYMPH % 17.8 % (24.0-44.0); MEAN CORPUSCULAR HEMOGLOBIN 27.2 pg (27.0-33.0); MEAN CORPUSCULAR HGB CONC 33.9 g/dl (32.0-36.5); MEAN CORPUSCULAR VOLUME 80.2 fl (80.0-96.0); MONO # 0.6 10^3/uL (0.0-0.8); MONO % 3.8 % (2.0-8.0); NEUTROPHILS # 11.9 10^3/uL (1.5-8.5); NEUTROPHILS % 76.9 % (36.0-66.0); PLATELET COUNT, AUTOMATED 538 10^3/uL (150-450); RED BLOOD COUNT 3.64 10^6/uL (4.30-6.10); WHITE BLOOD COUNT 15.4 10^3/uL (4.0-10.0)
[2020-07-08 15:10] LABS: APPEARANCE, BODY FLUID CLOUDY (CLEAR); PERITONEAL DIALYSATE FL COLOR COLORLESS (COLORLESS); SOURCE, BODY FLUID PERITONEAL DIALYSATE
[2020-07-08 15:28] LABS: APPEARANCE, BODY FLUID CLOUDY (CLEAR); PERITONEAL DIALYSATE FL COLOR COLORLESS (COLORLESS); SOURCE, BODY FLUID PERITONEAL DIALYSATE
--- NOTE | 2020-07-08 16:03 | REP ---
INDICATION: peritonitis. COMPARISON: None TECHNIQUE: Limited noncontrast enhanced exam FINDINGS: There are bilateral pleural effusions. Right greater than left. There is a small to moderate amount of free fluid in the abdomen and pelvis. The liver, spleen, pancreas, and adrenal glands are grossly within normal limits.. There are bilateral renal calcifications some of which are eugenio-vascular vascular in origin. There is no hydronephrosis or evidence of obstructive uropathy. There is fluid in Morison's pouch. Multiple mildly dilated gas and fluid-filled small bowel loops are seen in the abdomen and pelvis. There is no evidence of free intraperitoneal air. There is a suprapubic urinary bladder catheter in place. An additional catheter is seen coiled in the pelvis likely a peritoneal dialysis catheter. Bone window technique throughout the examination shows chronic spinal and hip degenerative changes. IMPRESSION: 1. Bilateral pleural effusions right greater than left. This is seen in conjunction likely bilateral lower lobe atelectatic changes. 2. Free fluid in the abdomen and pelvis likely secondary to dialysis. 3. Bilateral renal calcifications as described above. 4. Likely small bowel ileus. 5. No evidence of a gross mass or significant abnormal peritoneal thickening on this limited noncontrast enhanced exam. <Electronically signed by Domo Klein > 07/08/20 [id number]
--- NOTE | 2020-07-08 16:05 | REP ---
INDICATION: FUO. COMPARISON: None TECHNIQUE: Two views. Portable FINDINGS: The superior mediastinal structures are midline. The heart is not enlarged. The diaphragmatic surfaces of the lungs are regular and the costophrenic angles are clear. The pulmonary lopez are clear. The visualized osseous structures are within normal limits. There is a dual chamber bipolar pacemaker device in place the leads are contiguous and appropriate. The technique utilized in obtaining the radiograph has magnified the cardiac silhouette and attenuated the interstitial markings. IMPRESSION: There is no acute cardiopulmonary disease. <Electronically signed by Domo Klein > 07/08/20 [id number]
[2020-07-08] MEDS ORDERED: GABAPENTIN 100 MG CAP PO PRN (16:55)
[2020-07-08 16:56] LABS: CALCIUM LEVEL 7.3 MG/DL (8.5-10.1); CREATININE FOR GFR 4.45 MG/DL (0.70-1.30); GLOMERULAR FILTRATION RATE 14.7 (>56); POTASSIUM SERUM 2.7 MEQ/L (3.5-5.1)
[2020-07-08] MEDS ORDERED: NYST1POW9 TOP (16:56)
[2020-07-08] MEDS ORDERED: PILL CUTTER 1 EACH XX PRN (17:10)
[2020-07-08 18:52] VITALS: BP 121/74
--- NOTE | 2020-07-08 19:00 | HPEPDOC ---
General Date of Admission July 08, 2020 at 16:52 Date of Service: July 08, 2020 Chief Complaint The patient is a 54-year-old male admitted with a reason for visit of Peritonitis Associated With Peritonel Dialysis. Source: Patient, RN/MD History of Present Illness 54-year-old bedbound male/ abdiel lift, with past medical history of multiple sclerosis, paraplegia, neurogenic bladder with suprapubic catheter, left AKA in 2019 due to Left foot spreading infection and peripheral vascular disease, ESRD from 2019, on peritoneal dialysis, with chronic abdominal wound, presented to the ED because he noticed that his PD fluid bag this morning was cloudy. . He reported that last night he had a little bit of upper abdominal pain especially when he was gagging and coughing. However, he thought it was just muscle spasm from his coughing so he did not pay any attention. He went to bed with his cycler on and this morning he he saw his dialysate bags to be cloudy. He called his food assembler and was instructed to come to the emergency room. . He also complained of intractable diarrhea as per ED nurses saw him he had about 4 bowel movements in 20 minutes. On further questioning, patient explained that he was constipated yesterday, so he took a bunch of laxative pills and since then he started the diarrhea and it wouldn't stop. On first arrival to the ED, patient was very dirty and soiled in stool. His groin is red and excoriated. The skin around the suprapubic catheter site is raw with a small ulcer on one side. Evaluation of the PD fluid showed that time. WBC count was very high, so he was diagnosed with the PD peritonitis and admitted to the hospital Home Medications Scheduled Ascorbic Acid (Vitamin C) 500 Mg Tablet, 500 MG PO DAILY, (Reported) Aspirin (Aspirin EC) 81 Mg Tablet.dr, 81 MG PO DAILY, (Reported) Atorvastatin Calcium (Atorvastatin Calcium) 10 Mg Tablet, 10 MG PO QHS, (Reported) Ergocalciferol (Vitamin D2) (Vitamin D2) 50,000 Units Cap, 50,000 UNITS PO QWEEK, (Reported) FRIDAYS Fosfomycin Tromethamine (Fosfomycin Tromethamine) 3 Gram Packet, 3 GM PO QWEEK, (Reported) FRIDAYS Potassium Chloride (Potassium Chloride) 10 Meq Capsule.er, 20 MEQ PO BID, (Reported) Tizanidine HCl (Tizanidine HCl) 2 Mg Tablet, 1 TAB PO DAILY, (Reported) Scheduled PRN Diphenoxylate HCl/Atropine (Lomotil 2.5-0.025 mg Tablet) 1 Each Tablet, 1 TAB PO TID PRN for DIARRHEA, (Reported) Gabapentin (Gabapentin) 100 Mg Capsule, 100 MG PO TID PRN for PAIN, (Reported) Lidocaine (Lidocaine) 5% Adh..patch, 1 PATCH TOP DAILY PRN for PAIN, (Reported) APPLY TO RIGHT KNEE, RIGHT ANKLE OR BACK Nystatin (Nystatin Powder) 15 Gm Powder, 1 DOSE TOP BID PRN for REDNESS/IRRITATION, (Reported) APPLY TO GROIN Allergies Coded Allergies: latex (Verified Allergy, Intermediate, 12/18/19) heparin (Verified Allergy, Mild, 12/18/19) Past Medical History Medical History Non ambulatory/ abdiel lift Chronic abdominal wall wound reports after heparin injection then determined allergic to heparin. Multiple Sclerosis complicated by paraplegia & neurogenic bladder requiring suprapubic catheter x 3 years ESRD on PD since 2019 HTN PVD L AKA in 2019 Chronic right lateral malleolus ulcer, two right groin ulcers and large abdominal wounds Diabetic neuropathy Remote hx of DM (resolved after he lost weight) Obesity resolved after he lost weight s/p Pacemaker H/o pressure ulcers in buttocks and ankles which have now closed H/o Jessica's gangrene Surgical History Left AKKathleen 09/2019 Pacemaker placement suprapubic catheter placement PD catheter placement R KNEE SURGERY 1987 R ANKLE SURGERY 2007 Family History Significant Family History: Diabetes FATHER: 52 YRS, DIAGNOSED WITH OTHER MALIGNANT NEOPLASM OF UNSPECIFIED SITE, SUBSTANCE ABUSE MOTHER: 42 YRS, UNSPECIFIED HEART DISEASE, OTHER MALIGNANT NEOPLASM OF UNSPECIFIED SITE 1 BROTHER - DM 2 BROTHER - PASSED HRT DISEASE 3 BROTHER - HRT SURGERY 4 BROTHER - DM, HRT DX, COPD 1 SISTER- DM, HRT DX,DEPRESSION 2 SISTER - DM HRT DX, STROKE. Social History * Smoker: former Smoker Alcohol: occationally Drugs: denies A-FIB/CHADSVASC A-FIB History Current/History of A-Fib/PAF?: No Review of Systems Constitutional: Denies: Chills, Fever, Night Sweats ENT: Denies: Head Aches, Ear Pain, Dysphagia Skin: Reports: Lesions, Breakdown Pulmonary: Reports: Cough; Denies: Dyspnea Cardiovascular: Denies: Chest Pain, Palpitations, Orthopnea, Paroxysmal Noc. Dyspnea, Lt Headedness Gastrointestinal: Reports: Abdominal Pain, Diarrhea Genitourinary: Reports: Other Symptoms (suprapubic catheter) Physical Examination General Exam: Positive: Alert, Cooperative, No Acute Distress Eye Exam: Positive: Conjunctiva & lids normal, EOMI Neck Exam: Positive: Supple; Negative: JVD, thyromegaly Chest Exam: Positive: Clear to auscultation, Normal air movement Heart Exam: Positive: Rate Normal, Regular Rhythm, Normal S1, Normal S2, Murmurs (, systolic murmur present); Negative: Rubs Abdomen Exam: Positive: Normal bowel sounds, Soft, Tenderness (right upper quadrant and epigastrium), Other (. Suprapubic catheter); Negative: Hepatospenomegaly Extremity Exam: Positive: Other (, left AKA) Skin Exam: Positive: Breakdown (in the abdominal wall), Other skin issue (skin on the back and buttocks are red but not open) Neuro Exam: Positive: Normal Speech Vital Signs Vital Signs Date Time Temp Pulse Resp B/P (MAP) Pulse Ox O2 Delivery O2 Flow Rate FiO2 07/08/20 18:20 20 119/68 (85) 98 Room Air 07/08/20 18:19 96 07/08/20 13:29 99.1 Laboratory Data Labs 24H Laboratory Tests 2 07/08/20 14:20: Body Fluid Source PERITONEAL DIALYSATE, Body Fluid WBC (Auto) 4849H, Body Fluid RBC (Auto) < 2, Body Fluid Mononuclear Cells % Auto 11.1H, Fluid Polymorphon uclear Cell % Auto 88.9H, Peritoneal Fluid Color COLORLESS, Peritoneal Fluid Appearance CLOUDY 07/08/20 14:39: Body Fluid Source PERITONEAL DIALYSATE, Body Fluid WBC (Auto) 09617M, Body Fluid RBC (Auto) < 2, Body Fluid Mononuclear Cells % Auto 13.1H, Fluid Polymorphonuclear Cell % Auto 86.9H, Peritoneal Fluid Color COLORLESS, Peritoneal Fluid Appearance CLOUDY, Immature Granulocyte % (Auto) 0.5, Neutrophils (%) (Auto) 76.9H, Lymphocytes (%) (Auto) 17.8L, Monocytes (%) (Auto) 3.8, Eosinophils (%) (Auto) 0.7, Basophils (%) (Auto) 0.3, Neutrophils # (Auto) 11.9H, Lymphocytes # (Auto) 2.7, Monocytes # (Auto) 0.6, Eosinophils # (Auto) 0.1, Basophils # (Auto) 0.1, Nucleated Red Blood Cells % (auto) 0.0 07/08/20 16:00: Anion Gap 10, Glomerular Filtration Rate 14.7L, Lactic Acid Level 1.8, Calcium Level 7.3L CBC/BMP Laboratory Tests 07/08/20 14:39 07/08/20 16:00 Microbiology Microbiology 07/08/20 Urine Culture, Received Pending 07/08/20 Gram Stain - Final, Resulted 07/08/20 Body Fluid Culture, Resulted Pending 07/08/20 Blood Culture, Received Pending 07/08/20 Blood Culture, Received Pending 07/08/20 Respiratory Virus Panel (PCR) ([facility]) - Final, Complete 07/08/20 Gram Stain - Final, Resulted 07/08/20 Body Fluid Culture, Resulted Pending Assessment/Plan 54-year-old bedbound male/ abdiel lift, with past medical history of multiple sclerosis, paraplegia, neurogenic bladder with suprapubic catheter, left AKA in 2019 due to Left foot spreading infection and peripheral vascular disease, ESRD from 2020, on peritoneal dialysis, with chronic abdominal wound, presented to the ED because he noticed that his PD fluid bag this morning was cloudy. . He reported that last night he had a little bit of upper abdominal pain especially when he was gagging and coughing. However, he thought it was just muscle spasm from his coughing so he did not pay any attention. He went to bed with his cycler on and this morning he he saw his dialysate bags to be cloudy. He called his food assembler and was instructed to come to the emergency room. . He also complained of intractable diarrhea as per ED nurses saw him he had about 4 bowel movements in 20 minutes. On further questioning, patient explained that he was constipated yesterday, so he took a bunch of laxative pills and since then he started the diarrhea and it wouldn't stop. On first arrival to the ED, patient was very dirty and soiled in stool. His groin is red and excoriated. The skin around the suprapubic catheter site is raw with a small ulcer on one side. Evaluation of the PD fluid showed that time. WBC count was very high, so he was diagnosed with the PD peritonitis and admitted to the hospital. PD peritonitis Patient has been ordered. Gentamicin and vancomycin intraperitoneally by nephrology Continue PD exchanges as per nephrology PD cell count should be sent daily Diarrhea This is after ingesting laxatives If does not stop will give Imodium Chronic abdominal wound Follow wound care dressing recommendations as per Dr Castanon ESRD On PD Neurogenic bladder with suprapubic catheter Patient is on fosfomycin once a week for suppressive prophylaxis of infection DM with neuropathy Does not need any medications for diabetes at present Continue gabapentin. , Aspirin Hyperlipidemia Statin Multiple sclerosis, paraplegia, AKA Bedbound/ abdiel Tizanidine Plan / VTE VTE Prophylaxis Ordered?: Yes ROSE LUIS MD July 08, 2020 19:00
[2020-07-08] MEDS: tiZANidine 4 MG TAB PO SCH (20:27)
[2020-07-08] MEDS: ATORVASTATIN 10 MG TAB PO SCH (20:35)
[2020-07-08] MEDS ORDERED: POTASSIUM CHLORIDE 10 MEQ SR TABLET PO ONE (21:30)
[2020-07-08 22:00] VITALS: BP 110/76
[2020-07-08] MEDS: PIPERACILLIN/TAZOBACTAM SOD 2.25 GM in D5W MINI-BAG PLUS 50 ML IV SCH (22:35)
[2020-07-09] MEDS ORDERED: ARGATROBAN XX ONE (00:35)
[2020-07-09] MEDS: PIPERACILLIN/TAZOBACTAM SOD 2.25 GM in D5W MINI-BAG PLUS 50 ML IV SCH ×4 (00:59→22:55)
[2020-07-09] MEDS: NYSTATIN 100,000 UNITS/GM TOPICAL PWD 15 GM TOP PRN ×2 (01:21→23:11)
[2020-07-09 06:00] VITALS: BP 117/57
[2020-07-09 06:50] LABS: BASO # 0.1 10^3/uL (0.0-0.2); BASO % 0.4 % (0.0-1.0); EOS # 0.1 10^3/uL (0.0-0.5); EOS % 0.7 % (0.0-3.0); HEMATOCRIT 31.2 % (42.0-52.0); HEMOGLOBIN 9.8 g/dl (13.5-17.5); LYMPH # 1.8 10^3/uL (1.5-5.0); LYMPH % 13.8 % (24.0-44.0); MEAN CORPUSCULAR HEMOGLOBIN 26.3 pg (27.0-33.0); MEAN CORPUSCULAR HGB CONC 31.4 g/dl (32.0-36.5); MEAN CORPUSCULAR VOLUME 83.6 fl (80.0-96.0); MONO # 0.6 10^3/uL (0.0-0.8); MONO % 4.5 % (2.0-8.0); NEUTROPHILS # 10.7 10^3/uL (1.5-8.5); NEUTROPHILS % 80.2 % (36.0-66.0); RED BLOOD COUNT 3.73 10^6/uL (4.30-6.10); WHITE BLOOD COUNT 13.4 10^3/uL (4.0-10.0)
[2020-07-09 06:55] LABS: PLATELET COUNT, AUTOMATED 402 10^3/uL (150-450)
[2020-07-09 06:56] LABS: APPEARANCE, BODY FLUID HAZY (CLEAR); SOURCE, BODY FLUID PERITONEAL
[2020-07-09 07:11] LABS: CALCIUM LEVEL 6.7 MG/DL (8.5-10.1); CREATININE FOR GFR 4.29 MG/DL (0.70-1.30); GLOMERULAR FILTRATION RATE 15.4 (>56); PHOSPHORUS LEVEL 3.9 MG/DL (2.5-4.9); POTASSIUM SERUM 3.1 MEQ/L (3.5-5.1)
[2020-07-09] MEDS: ASPIRIN 81MG ENTERIC TABLET PO SCH (09:57)
[2020-07-09] MEDS: tiZANidine 4 MG TAB PO SCH (09:57)
[2020-07-09] MEDS: POTASSIUM CHLORIDE 10 MEQ SR TABLET PO SCH ×2 (09:57→20:04)
--- NOTE | 2020-07-09 12:51 | IPNPDOC ---
Subjective Date Seen The patient was seen on 07/09/20. Subjective Chief Complaint/HPI Feeling better today. diarrhea has resolved. Abdominal pain is less. PD fluid is clearer. No fever or chills. Objective Physical Examination General Exam: Positive: Alert, Cooperative, No Acute Distress Eye Exam: Positive: Conjunctiva & lids normal, EOMI Neck Exam: Positive: Supple; Negative: JVD, thyromegaly Chest Exam: Positive: Clear to auscultation, Normal air movement Heart Exam: Positive: Rate Normal, Regular Rhythm, Normal S1, Normal S2, Murmurs (, systolic murmur present); Negative: Rubs Abdomen Exam: Positive: Normal bowel sounds, Soft, Tenderness (right upper quadrant and epigastrium), Other (. Suprapubic catheter); Negative: Hepatospenomegaly Extremity Exam: Positive: Other (, left AKA) Skin Exam: Positive: Breakdown (in the abdominal wall), Other skin issue (skin on the back and buttocks are red but not open) Neuro Exam: Positive: Normal Speech Assessment /Plan Assessment 54-year-old bedbound male/ abdiel lift, with past medical history of multiple sclerosis, paraplegia, neurogenic bladder with suprapubic catheter, left AKA in 2020 due to Left foot spreading infection and peripheral vascular disease, ESRD from 2020, on peritoneal dialysis, with chronic abdominal wound, presented to the ED because he noticed that his PD fluid bag this morning was cloudy. . He reported that last night he had a little bit of upper abdominal pain especially when he was gagging and coughing. However, he thought it was just muscle spasm from his coughing so he did not pay any attention. He went to bed with his cycler on and this morning he he saw his dialysate bags to be cloudy. He called his roofing layer and was instructed to come to the emergency room. . He also complained of intractable diarrhea as per ED nurses saw him he had about 4 bowel movements in 20 minutes. On further questioning, patient explained that he was constipated yesterday, so he took a bunch of laxative pills and since then he started the diarrhea and it wouldn't stop. On first arrival to the ED, patient was very dirty and soiled in stool. His groin is red and excoriated. The skin around the suprapubic catheter site is raw with a small ulcer on one side. Evaluation of the PD fluid showed that time. WBC count was very high, so he was diagnosed with the PD peritonitis and admitted to the hospital. PD peritonitis Patient has been ordered. Gentamicin and vancomycin intraperitoneally by nephrology Continue PD exchanges as per nephrology PD cell count should be sent daily PD fluid gram neg rods in grm stain, cultures pending. IV vancomycin PICC line Poor venous access will place PICC line for now once blood cultures are negative, prior to discharge will send to IR for a inf usaport placement. This has to be done before discharge as patietn will not be able to come back and forth to the hospital. Diarrhea This is after ingesting laxatives resolved. Chronic abdominal wound Follow wound care dressing recommendations as per Dr Castanon ESRD On PD Neurogenic bladder with suprapubic catheter Patient is on fosfomycin once a week for suppressive prophylaxis of infection DM with neuropathy Does not need any medications for diabetes at present Continue gabapentin. , Aspirin Hyperlipidemia Statin Multiple sclerosis, paraplegia, AKA Bedbound/ abdiel Tizanidine Plan/VTE VTE Prophylaxis Ordered?: Yes VS, I&O, 24H, [facility] Vital Signs/I&O Vital Signs Date Time Temp Pulse Resp B/P (MAP) Pulse Ox O2 Delivery O2 Flow Rate FiO2 07/09/20 06:00 97.0 84 18 117/57 (77) 99 07/08/20 18:52 Room Air I&O- Last 24 Hours up to 6 AM 07/09/20 06:00 Intake Total 4150 ml Output Total 3750 ml Balance 400 ml Laboratory Data 24H LABS Laboratory Tests 2 07/08/20 14:20: Body Fluid Source PERITONEAL DIALYSATE, Body Fluid WBC (Auto) 4849H, Body Fluid RBC (Auto) < 2, Body Fluid Mononuclear Cells % Auto 11.1H, Fluid Polymorphonuclear Cell % Auto 88.9H, Peritoneal Fluid Color COLORLESS, Peritoneal Fluid Appearance CLOUDY 07/08/20 14:39: Body Fluid Source PERITONEAL DIALYSATE, Body Fluid WBC (Auto) 82553B, Body Fluid RBC (Auto) < 2, Body Fluid Mononuclear Cells % Auto 13.1H, Fluid Polymorphonuclear Cell % Auto 86.9H, Peritoneal Fluid Color COLORLESS, Denisse toneal Fluid Appearance CLOUDY, Immature Granulocyte % (Auto) 0.5, Neutrophils (%) (Auto) 76.9H, Lymphocytes (%) (Auto) 17.8L, Monocytes (%) (Auto) 3.8, Eosinophils (%) (Auto) 0.7, Basophils (%) (Auto) 0.3, Neutrophils # (Auto) 11.9H, Lymphocytes # (Auto) 2.7, Monocytes # (Auto) 0.6, Eosinophils # (Auto) 0.1, Basophils # (Auto) 0.1, Nucleated Red Blood Cells % (auto) 0.0 07/08/20 16:00: Anion Gap 10, Glomerular Filtration Rate 14.7L, Lactic Acid Level 1.8, Calcium Level 7.3L 07/09/20 05:43: Immature Granulocyte % (Auto) 0.4, Neutrophils (%) (Auto) 80.2H, Lymphocytes (%) (Auto) 13.8L, Monocytes (%) (Auto) 4.5, Eosinophils (%) (Auto) 0.7, Basophils (%) (Auto) 0.4, Neutrophils # (Auto) 10.7H, Lymphocytes # (Auto) 1.8, Monocytes # (Auto) 0.6, Eosinophils # (Auto) 0.1, Basophils # (Auto) 0.1, Nucleated Red Blood Cells % (auto) 0.0, Anion Gap 9, Glomerular Filtration Rate 15.4L, Calcium Level 6.7L, Phosphorus Level 3.9 07/09/20 06:27: Body Fluid WBC (Auto) 3132H, Body Fluid RBC (Auto) < 2, Body Fluid Mononuclear Cells % Auto 7.1H, Fluid Polymorphonuclear Cell % Auto 92.9H, Peritoneal Fluid Source PERITONEAL, Peritoneal Fluid Color WHITE, Peritoneal Fluid Appearance HAZY CBC/BMP Laboratory Tests 07/08/20 14:39 07/08/20 16:00 07/09/20 05:43 Microbiology Microbiology 07/08/20 Urine Culture, Received Pending 07/08/20 Gram Stain - Final, Resulted 07/08/20 Body Fluid Culture, Resulted Pending 07/08/20 Blood Culture, Received Pending 07/08/20 Blood Culture, Received Pending 07/08/20 Respiratory Virus Panel (PCR) ([facility]) - Final, Complete 07/08/20 Gram Stain - Final, Resulted 07/08/20 Body Fluid Culture, Resulted Pending ROSE LUIS MD July 09, 2020 12:51
[2020-07-09] MEDS ORDERED: LIDOCAINE 1% MDV 20ML VIAL As Ordered ONE (13:22)
--- NOTE | 2020-07-09 13:39 | CR ---
NEPHROLOGY CONSULTATION DATE: 07/09/2020 REQUESTING PHYSICIAN: Dr. Jany Mcguire CONSULTING PHYSICIAN: Dr. Bettye Peterson REASON FOR CONSULTATION: Management of end-stage renal disease, peritoneal dialysis and peritonitis in this patient. CHIEF COMPLAINT: The patient was sent to the Emergency Room by peritoneal dialysis nurses because of cloudy fluid in the peritoneal dialysis return. HISTORY OF PRESENT ILLNESS: Eitan Mena is a 54-year-old male with a past medical history of end-stage renal disease on hemodialysis. He has multiple sclerosis, chronically bed bound and Guille lift dependent. He has a neurologic bladder, suprapubic catheter, multiple other comorbidities as mentioned below. Despite all of his comorbidities, a sister is taking care of him and she does the peritoneal dialysis for him. His peritoneal dialysis fluid in the bag was getting more and more cloudy and the patient was having epigastric abdominal pain as well. And because of these symptoms the patient was advised to come to the Emergency Room. When the patient came to the Emergency Room his fluid was examined by the nursing staff and the physicians and it was sent for analysis. His peritoneal fluid cell count the one that he brought from home was 4,849 and the repeat one in the Emergency Room showed 10,210 WBCs. The patient was discussed with myself by the E.R. physician. The first dose of intraperitoneal Vancomycin and Gentamicin was given last night. I saw and evaluated the patient today morning at the bedside. He reports that his peritoneal fluid is getting more clear now and his abdominal pain is also better today as compared with yesterday. The patient also had a lot of fibrin in the peritoneal dialysate drainage bag, and he needed 10 mg of intraperitoneal Argatroban because of history of Heparin allergy and fibrin is also clearing in the bags now. PAST MEDICAL HISTORY: The patient's past medical history is significant for: 1. Chronically being Guille lift dependent. 2. Chronically bedridden. 3. Abdominal wounds. 4. He has paraplegia and neurogenic bladder secondary to multiple sclerosis. 5. He has a suprapubic catheter for the last 3 years. 6. End-stage renal disease on peritoneal dialysis since 2019. 7. Hypertension. 8. Peripheral vascular disease. 9. Left above knee amputation status. 10. Chronic right lateral malleolus ulcers and two groin ulcers. 11. Diabetic nephropathy. 12. His diabetes got better after end-stage renal disease and losing some weight. PAST SURGICAL HISTORY: The patient's past surgical history is significant for: 1. Status post left above knee amputation in September 2019. 2. Pacemaker placement. 3. Suprapubic pacemaker placement. 4. Suprapubic catheter placement. 5. Peritoneal dialysis catheter placement. 6. Right knee surgery. 7. Right ankle surgery. ALLERGIES: He is allergic to: 1. Latex. 2. Heparin. FAMILY HISTORY: There is positive family history of diabetes. No significant family history of end-stage renal disease. SOCIAL HISTORY: The patient lives at home. There is no history of active smoking or drug abuse or alcohol abuse at this time. His sister is a caregiver. REVIEW OF SYSTEMS: Constitutional: The patient denies any fevers or chills. Eyes: He denies any blurry vision, double vision. ENT: He denies any dysphagia or odynophagia. Cardiovascular: He denies any shortness of breath or chest pain. Respiratory: He denies any cough or phlegm. GI: He did report abdominal pain and he had cloudy peritoneal dialysate. He reports the pain is getting better. Genitourinary: He reports suprapubic catheter and neurogenic bladder. Musculoskeletal: He is chronically bedridden. Skin: He reports multiple ulcerations. ASSISTANT FRONT DESK MANAGER: He reports multiple sclerosis and paraplegia. Hematological/Oncological: He denies any easy bleeding or bruising. Endocrine: He reports history of diabetes in the past. All other review of systems is negative. PHYSICAL EXAMINATION: GENERAL APPEARANCE: The patient is awake, alert, oriented x3. He has obesity, laying in bed. VITAL SIGNS: Temperature is 97.1 degrees Fahrenheit, blood pressure is 110/76, pulse is 93, respiratory rate of 20, saturating 99% on room air. HEAD AND NECK: Pupils are equally round and reactive to light. Mucous membranes are moist. Neck is supple. There is no jugular venous distention. CARDIOVASCULAR: S1, S2. EXTREMITIES: 1+ edema of the right lower extremities. RESPIRATORY: Mildly decreased breath sounds at the bases but otherwise no active rales or rhonchi. ABDOMEN: Obese. He has left sided abdominal wall ulcers which are covered with dressing. A right lower quadrant peritoneal dialysis catheter is noted which is being used for peritoneal dialysis. GENITOURINARY: He has a suprapubic catheter at this time. There was cloudy urine in the catheter. MUSCULOSKELETAL: He has a left above the knee amputation and he has ulcers in the right lower leg as well. ASSISTANT FRONT DESK MANAGER: The patient has paraplegia because of multiple sclerosis. Otherwise he is able to move bilateral upper extremities and communicate with me. SKIN: Multiple ulcerations in the abdominal area and the groin and the right leg were noted. LAB REVIEW: CBC showed a WBC count of 15.4 yesterday; it is 13.4 today. Hemoglobin is 9.8, platelet count 402. Urinalysis is not available. Peritoneal fluid cell count initial one was 4,849. Repeat one in the Emergency Room was 10,210 and after antibiotics the cell count today morning is 3,132 with 92.9% polymorphonuclears. BMP done today morning showed sodium 132, potassium 3.1, chloride 94, bicarbonate 29, BUN 42, creatinine is 4.2. Calcium 6.7, phosphorous 3.9. Microbiology - peritoneal fluid shows a few WBCs and a moderate amount of gram negative rods. IMAGING: A CAT scan of the abdomen and pelvis was done yesterday. It showed bilateral pleural effusions, left greater than right, bilateral lower lobe atelectasis, free fluid in the abdomen and pelvis secondary to dialysis, bilateral renal calcifications, small bowel ileus. CURRENT INPATIENT MEDICATIONS: The patient's medications were all reviewed by myself. He was given one dose of intraperitoneal Argatroban last night. He is currently on Zosyn 2.25 grams IV q. 8 hourly, Aspirin 81 mg p.o. daily, Lipitor 10 mg q. h.s., Gabapentin 100 mg p.o. three times daily. Gentamicin 80 mg intraperitoneal yesterday was given and 40 mg intraperitoneal will be given every day. He is on Nystatin Powder. Potassium Chloride 40 mEq was given last night, and he has been started on 20 mEq p.o. twice daily. And he was given one dose of intraperitoneal Vancomycin one gram. ASSESSMENT AND PLAN: 1. Acute peritonitis associated with peritoneal dialysis catheter - The patient has gram negative rods on the gram stain. He was already given Gentamicin in the Emergency Room. I will continue the Gentamicin, however I am covering him with Zosyn as well. Once the sensitivity results come back, antibiotics will be tapered down. Peritoneal dialysis fluid was cloudy yesterday; it is clearing now. Peritoneal fluid cell count is improving. 2. The patient is peritoneal dialysis dependent - continue five manual exchanges, all 2 liters, and there will be a combination of 1.5% and 2.5%. 3. Hypokalemia - The patient was given a dose of potassium last night. He has also been started on Potassium Chloride 20 mEq p.o. twice daily. Continue current dose. 4. Anemia and end-stage renal disease - hemoglobin level is 9.8 which is slightly suboptimal. I would give him a small dose of Aranesp. 5. Neurogenic bladder and suprapubic catheter - The patient gets Fosfomycin once a week for infection prophylaxis. Currently he is on Zosyn so he will not need Fosfomycin for now. 6. Paraplegia - left above knee amputation. 7. Multiple sclerosis - multiple ulcers on the abdomen. Continue wound care as per nursing. 8. Okay to continue home medications for neuropathy. Thank you for involving me in the care of this patient. I shall be happy to follow the patient along with you tomorrow morning.
[2020-07-09 14:00] VITALS: BP 122/71
--- NOTE | 2020-07-09 15:00 | REP ---
PROCEDURE NAME: PICC LINE INSERTION W/SITERITE CLINICAL INFORMATION: poor access. COMPARISON: None. PROCEDURE DESCRIPTION: The procedure was performed by LUIS Chamberlain, under the direct supervision of Dr. Pack. The risks and benefits of the procedure were explained to the patient and an informed consent was obtained both verbally and written. Directly prior to the start of the procedure a formal time-out was completed in the procedure room. The right basilic vein was localized using ultrasound guidance. The skin was prepped and draped in sterile fashion. One mL of 1% lidocaine 10 mg/mL was used as a local anesthetic. Using ultrasound guidance the right basilic vein was cannulated, and a 0.018 guidewire was inserted and advanced to the level of SVC using fluoroscopic guidance. The needle was removed and a 5.5 Cameroonian dilator and peel-away sheath was inserted over the guidewire. A 5.5 Cam[place]onian dual lumen catheter was cut to a length of 43 cm. The dilator was removed and the catheter was inserted over the guidewire with the tip ending at the level of the SVC. The peel-away sheath was removed and the catheter was flushed with heparinized saline as per hospital protocol. The catheter was affixed to the skin and a sterile dressing was applied. The patient tolerated the procedure well and there were no immediate complications. CONCLUSION: PICC line insertion into the right basilic vein. 0.1 minutes of fluoroscopy time was utilized for this procedure. Some fluoroscopic images are performed with last image hold technology. These images require no additional radiation. <Electronically signed by Rain Alvarez > 07/09/20 1411 <Electronically signed by Rolly Pack > 07/09/20 0681
[2020-07-09] MEDS: SODIUM CHLORIDE 0.9% INJ 10 ML SYR IV SCH (16:54)
[2020-07-09] MEDS: ATORVASTATIN 10 MG TAB PO SCH (20:03)
--- NOTE | 2020-07-09 20:20 | ECGEPIP ---
[facility] - ED Test Date: 2020-07-08 Pat Name: NAZ GARCIA Department: Room: - Gender: Male Prosthetic Assistant: Jesús NAVA : 1965 Requested By: Willem Whitmore Order Number: [id number] Reading MD: Dorinda Marquez Measurements Intervals [place] Rate: 92 P: -5 W[place]: 136 QRS: -64 QRSD: 204 T: 97 QT: 482 QTc: 596 Interpretive Statements Atrial-sensed ventricular-paced rhythm No prior Electronically Signed on 07-09-2020 20:20:24 EDT by Dorinda Marquez
[2020-07-09 22:00] VITALS: BP 117/70
[2020-07-09] MEDS: SODIUM CHLORIDE 0.9% INJ 10 ML SYR IV PRN ×2 (22:55→23:47)
[2020-07-09] MEDS: GENTAMICIN SULF 80MG/2ML VIAL IP SCH (23:11)
[2020-07-10 06:00] VITALS: BP 115/68
[2020-07-10] MEDS: PIPERACILLIN/TAZOBACTAM SOD 2.25 GM in D5W MINI-BAG PLUS 50 ML IV SCH (06:10)
[2020-07-10] MEDS: SODIUM CHLORIDE 0.9% INJ 10 ML SYR IV PRN (06:11)
[2020-07-10] MEDS: SODIUM CHLORIDE 0.9% INJ 10 ML SYR IV SCH ×2 (06:11→18:13)
[2020-07-10 06:44] LABS: BASO % 0.4 % (0.0-1.0); EOS # 0.3 10^3/uL (0.0-0.5); EOS % 2.6 % (0.0-3.0); HEMATOCRIT 29.4 % (42.0-52.0); HEMOGLOBIN 9.4 g/dl (13.5-17.5); LYMPH # 1.3 10^3/uL (1.5-5.0); LYMPH % 12.5 % (24.0-44.0); MEAN CORPUSCULAR HEMOGLOBIN 26.8 pg (27.0-33.0); MEAN CORPUSCULAR VOLUME 83.8 fl (80.0-96.0); MONO # 0.5 10^3/uL (0.0-0.8); NEUTROPHILS # 8.4 10^3/uL (1.5-8.5); PLATELET COUNT, AUTOMATED 341 10^3/uL (150-450); RED BLOOD COUNT 3.51 10^6/uL (4.30-6.10); WHITE BLOOD COUNT 10.6 10^3/uL (4.0-10.0)
[2020-07-10 07:12] LABS: CREATININE FOR GFR 3.86 MG/DL (0.70-1.30); GLOMERULAR FILTRATION RATE 17.4 (>56); POTASSIUM SERUM 3.2 MEQ/L (3.5-5.1)
[2020-07-10 07:19] LABS: APPEARANCE, BODY FLUID CLEAR (CLEAR); PERITONEAL FL COLOR PALE YELLOW (COLORLESS); SOURCE, BODY FLUID PERITONEAL
[2020-07-10 08:20] VITALS: BP 127/83
[2020-07-10] MEDS: tiZANidine 4 MG TAB PO SCH (09:00)
[2020-07-10] MEDS: POTASSIUM CHLORIDE 10 MEQ SR TABLET PO SCH ×2 (09:24→20:38)
[2020-07-10] MEDS: ASPIRIN 81MG ENTERIC TABLET PO SCH (09:24)
[2020-07-10] MEDS ORDERED: FUROSEMIDE 100MG/10ML VIAL (J1940) IV ONE (12:00)
[2020-07-10] MEDS ORDERED: POTASSIUM CHLORIDE 10 MEQ SR TABLET PO ONE (12:00)
--- NOTE | 2020-07-10 13:01 | IPNPDOC ---
Subjective Date Seen The patient was seen on 07/10/20. Subjective Chief Complaint/HPI no complaints this morning, Abdominal pain has resolved. PD fluid bag is much clearer. Objective Physical Examination General Exam: Positive: Alert, Cooperative, No Acute Distress Eye Exam: Positive: Conjunctiva & lids normal, EOMI Neck Exam: Positive: Supple; Negative: JVD, thyromegaly Chest Exam: Positive: Clear to auscultation, Normal air movement Heart Exam: Positive: Rate Normal, Regular Rhythm, Normal S1, Normal S2, Murmurs (, systolic murmur present); Negative: Rubs Abdomen Exam: Positive: Normal bowel sounds, Soft, Other (suprapubic catheter); Negative: Tenderness, Hepatospenomegaly Extremity Exam: Positive: Other (, left AKA) Skin Exam: Positive: Breakdown (in the abdominal wall), Other skin issue (skin on the back and buttocks are red but not open) Neuro Exam: Positive: Normal Speech Assessment /Plan Assessment 54-year-old bedbound male/ abdiel lift, with past medical history of multiple sclerosis, paraplegia, neurogenic bladder with suprapubic catheter, left AKA in 2019 due to Left foot spreading infection and peripheral vascular disease, ESRD from 2020, on peritoneal dialysis, with chronic abdominal wound, presented to the ED because he noticed that his PD fluid bag this morning was cloudy. . He reported that last night he had a little bit of upper abdominal pain especially when he was gagging and coughing. However, he thought it was just muscle spasm from his coughing so he did not pay any attention. He went to bed with his cycler on and this morning he he saw his dialysate bags to be cloudy. He called his supervisor microbiology technologists and was instructed to come to the emergency room. . He also complained of intractable diarrhea as per ED nurses saw him he had about 4 bowel movements in 20 minutes. On further questioning, patient explained that he was constipated yesterday, so he took a bunch of laxative pills and since then he started the diarrhea and it wouldn't stop. On first arrival to the ED, patient was very dirty and soiled in stool. His groin is red and excoriated. The skin around the suprapubic catheter site is raw with a small ulcer on one side. Evaluation of the PD fluid showed that time. WBC count was very high, so he was diagnosed with the PD peritonitis and admitted to the hospital. His UA was also very dirty catheter related UTi vs colonization. PD peritonitis Patient has been ordered. Gentamicin and vancomycin intraperitoneally by nephrology Continue PD exchanges as per nephrology PD cell count should be sent daily PD fluid Acinetobacter started on Cefepime Catheter related UTi Urine culture pseudomonas cefepime. Poor venous access will place PICC line for now once blood cultures are negative, prior to discharge will send to IR for a infusaport placement. This has to be done before discharge as patient will not be able to come back and forth to the hospital. Diarrhea This is after ingesting laxatives resolved. Chronic abdominal wound Follow wound care dressing recommendations as per Dr Castanon ESRD On PD Neurogenic bladder with suprapubic catheter Patient is on fosfomycin once a week for suppressive prophylaxis of infection now on cefepime DM with neuropathy Does not need any medications for diabetes at present Continue gabapentin. , Aspirin Hyperlipidemia Statin Multiple sclerosis, paraplegia, AKA Bedbound/ abdiel Tizanidine Plan/VTE VTE Prophylaxis Ordered?: Yes VS, I&O, 24H, [facility] Vital Signs/I&O Vital Signs Date Time Temp Pulse Resp B/P (MAP) Pulse Ox O2 Delivery O2 Flow Rate FiO2 07/10/20 06:00 98.0 81 18 115/68 (84) 97 Room Air I&O- Last 24 Hours up to 6 AM 07/10/20 06:00 Intake Total 02878 ml Output Total 66387 ml Balance 650 ml Laboratory Data 24H LABS Laboratory Tests 2 07/10/20 06:33: Immature Granulocyte % (Auto) 0.5, Neutrophils (%) (Auto) 79.0H, Lymphocytes (%) (Auto) 12.5L, Monocytes (%) (Auto) 5.0, Eosinophils (%) (Auto) 2.6, Basophils (%) (Auto) 0.4, Neutrophils # (Auto) 8.4, Lymphocytes # (Auto) 1.3L, Monocytes # (Auto) 0.5, Eosinophils # (Auto) 0.3, Basophils # (Auto) 0.0, Nucleated Red Blood Cells % (auto) 0.0, Body Fluid WBC (Auto) 462H, Body Fluid RBC (Auto) < 2, Body Fluid Mononuclear Cells % Auto 58.0H, Fluid Polymorphonuclear Cell % Auto 42.0H, Peritoneal Fluid Source PERITONEAL, Peritoneal Fluid Color PALE YELLOW, Peritoneal Fluid Appearance CLEAR, Anion Gap 8, Glomerular Filtration Rate 17.4L, Calcium Level 7.0L CBC/BMP Laboratory Tests 07/10/20 06:33 Microbiology Microbiology 07/08/20 Urine Culture - Final, Complete Pseudomonas Aeruginosa Corynebacterium Species 07/08/20 Gram Stain - Final, Complete 07/08/20 Body Fluid Culture - Final, Complete Acinetobacter Baumannii Comple 07/08/20 Blood Culture - Preliminary, Resulted No growth after 24 hours . All specim... 07/08/20 Blood Culture - Preliminary, Resulted No growth after 24 hours . All specim... 07/08/20 Respiratory Virus Panel (PCR) ([facility]) - Final, Complete 07/08/20 Gram Stain - Final, Complete 07/08/20 Body Fluid Culture - Final, Complete Acinetobacter Baumannii Comple ROSE LUIS MD July 10, 2020 13:01
[2020-07-10 16:34] VITALS: BP 114/66
[2020-07-10] MEDS ORDERED: ARGATROBAN XX ONE (18:00)
[2020-07-10] MEDS: CEFEPIME HCL 1 GM in D5W MINI-BAG PLUS 50 ML IV SCH (18:13)
[2020-07-10] MEDS ORDERED: ONDANSETRON 4MG/2ML VIAL IV PRN (19:00)
[2020-07-10] MEDS: ATORVASTATIN 10 MG TAB PO SCH (20:38)
[2020-07-10 22:00] VITALS: BP 111/66
--- NOTE | 2020-07-10 22:23 | IPN ---
NEPHROLOGY PROGRESS NOTE DATE: 07/10/2020 SUBJECTIVE: The patient was seen and examined at the bedside today morning. He is afebrile, hemodynamically stable. His cultures came back. He is growing pseudomonas in the urine cultures and Acinetobacter in the peritoneal fluid cultures. His leukocytosis is improving. He reports his abdominal pain also significantly better. The patient has a suprapubic catheter and I was told by the nursing staff that the patient is having green pus coming out from his penile area. OBJECTIVE: VITAL SIGNS: Temperature is 97.1 degrees Fahrenheit, blood pressure 114/66, pulse is 88, respiratory rate of 18, saturating 98% on room air. INTAKE AND OUTPUT: Urine output recorded yesterday as 450 mL. Weight in the bed scale is not available. PHYSICAL EXAMINATION: HEAD AND NECK: Pupils are equally round and reactive to light. Mucous membranes are moist. Neck is supple. There is no jugular venous distention. CARDIOVASCULAR: S1, S2, regular rate. EXTREMITIES: Trace edema of the right lower extremity. RESPIRATORY: Chest is clear to auscultation bilaterally. Bilaterally currently no rales or rhonchi. ABDOMEN: Soft. A right lower quadrant peritoneal dialysis catheter is noted. Mild tenderness in the epigastrium which is significantly better today as compared with yesterday. He has a dressing on the left side of the abdomen because of ulcers. GENITOURINARY: He has a suprapubic catheter and I saw green colored pus coming from the urethral meatus as well. MUSCULOSKELETAL: He has a left above the knee amputation. INTEGRATED CAMPAIGN MANAGER: The patient has multiple sclerosis. He is able to move bilateral upper extremities. LAB REVIEW: CBC showed a WBC of 10.6, hemoglobin 9.4, platelet count 341. Peritoneal fluid cell count is 462. Polymorphonuclear are 42%. BMP showed sodium of 130, potassium 3.2, chloride 93, bicarbonate 29, BUN 37, creatinine is 3.8. Microbiology urine culture is growing pseudomonas and Corynebacterium species. Peritoneal fluid culture is growing Acinetobacter bowmani. CURRENT INPATIENT MEDICATIONS: The patient's medications were all reviewed by myself. IV Zosyn was stopped by myself. I started the patient on Cefepime one gram IV q. 24. He continues to be intraperitoneal Gentamicin as well. He was given one dose of Potassium Chloride 40 mEq and he is already on Potassium Chloride 20 mEq p.o. twice daily. ASSESSMENT AND PLAN: 1. Acute peritonitis with peritoneal dialysis catheter - The patient is clinically getting better. Peritoneal fluid cell count is improving. Cultures are growing Acinetobacter which is sensitive to Gentamicin. However since the patient has suprapubic catheter and a urinary tract infection as well, he is going to get IV Cefepime as well which will cover both peritonitis and urinary tract infection. I would continue the Gentamicin at this time as well. Zosyn is being stopped. 2. Pseudomonas urinary tract infection - The patient was getting IV Zosyn which covers pseudomonas but Cefepime is being switched to one gram IV daily. Continue current dose. 3. End-stage renal disease dependent on peritoneal dialysis. Continue current dialysis regimen. Volume status is optimal. I am going to give one dose of Lasix 60 mg IV today. 4. Hypokalemia - The patient was given an extra dose of potassium today morning. Continue Potassium Chloride 20 mEq p.o. twice daily. 5. Anemia and end-stage renal disease - hemoglobin level is slowly dropping. Aranesp dose will be given.
[2020-07-10] MEDS: NYSTATIN 100,000 UNITS/GM TOPICAL PWD 15 GM TOP PRN (22:29)
[2020-07-10] MEDS: GENTAMICIN SULF 80MG/2ML VIAL IP SCH (22:29)
[2020-07-11] MEDS: SODIUM CHLORIDE 0.9% INJ 10 ML SYR IV PRN (05:59)
[2020-07-11] MEDS: SODIUM CHLORIDE 0.9% INJ 10 ML SYR IV SCH ×2 (05:59→18:27)
[2020-07-11 06:00] VITALS: BP 109/67
[2020-07-11 06:29] LABS: BASO # 0.1 10^3/uL (0.0-0.2); BASO % 0.6 % (0.0-1.0); EOS # 0.4 10^3/uL (0.0-0.5); EOS % 3.5 % (0.0-3.0); HEMATOCRIT 31.4 % (42.0-52.0); HEMOGLOBIN 9.8 g/dl (13.5-17.5); LYMPH # 1.9 10^3/uL (1.5-5.0); LYMPH % 18.9 % (24.0-44.0); MEAN CORPUSCULAR HEMOGLOBIN 26.1 pg (27.0-33.0); MEAN CORPUSCULAR HGB CONC 31.2 g/dl (32.0-36.5); MEAN CORPUSCULAR VOLUME 83.7 fl (80.0-96.0); MONO # 0.6 10^3/uL (0.0-0.8); NEUTROPHILS # 7.2 10^3/uL (1.5-8.5); NEUTROPHILS % 70.6 % (36.0-66.0); PLATELET COUNT, AUTOMATED 390 10^3/uL (150-450); RED BLOOD COUNT 3.75 10^6/uL (4.30-6.10); WHITE BLOOD COUNT 10.2 10^3/uL (4.0-10.0)
[2020-07-11 06:40] LABS: CALCIUM LEVEL 6.7 MG/DL (8.5-10.1); CREATININE FOR GFR 3.64 MG/DL (0.70-1.30); GLOMERULAR FILTRATION RATE 18.6 (>56); POTASSIUM SERUM 3.8 MEQ/L (3.5-5.1)
[2020-07-11 07:18] LABS: APPEARANCE, BODY FLUID CLEAR (CLEAR); PERITONEAL FL COLOR COLORLESS (COLORLESS); SOURCE, BODY FLUID PERITONEAL
[2020-07-11] MEDS: tiZANidine 4 MG TAB PO SCH (08:00)
[2020-07-11] MEDS: ASPIRIN 81MG ENTERIC TABLET PO SCH (08:01)
[2020-07-11] MEDS: POTASSIUM CHLORIDE 10 MEQ SR TABLET PO SCH ×2 (08:01→22:32)
[2020-07-11] MEDS ORDERED: tiZANidine 4 MG TAB PO PRN (08:05)
--- NOTE | 2020-07-11 08:40 | IPNPDOC ---
Subjective Date Seen The patient was seen on 07/11/20. Subjective Chief Complaint/HPI Feels good this morning. No diarrhea, no fever or chills. No abdominal pain Objective Physical Examination General Exam: Positive: Alert, Cooperative, No Acute Distress Eye Exam: Positive: Conjunctiva & lids normal, EOMI Neck Exam: Positive: Supple; Negative: JVD, thyromegaly Chest Exam: Positive: Clear to auscultation, Normal air movement Heart Exam: Positive: Rate Normal, Regular Rhythm, Normal S1, Normal S2, Murmurs (, systolic murmur present); Negative: Rubs Abdomen Exam: Positive: Normal bowel sounds, Soft, Other (suprapubic catheter); Negative: Tenderness, Hepatospenomegaly Extremity Exam: Positive: Other (, left AKA) Skin Exam: Positive: Breakdown (in the abdominal wall), Other skin issue (skin on the back and buttocks are red but not open) Neuro Exam: Positive: Normal Speech Assessment /Plan Assessment 54-year-old bedbound male/ abdiel lift, with past medical history of multiple sclerosis, paraplegia, neurogenic bladder with suprapubic catheter, left AKA in 2019 due to Left foot spreading infection and peripheral vascular disease, ESRD from 2020, on peritoneal dialysis, with chronic abdominal wound, presented to the ED because he noticed that his PD fluid bag this morning was cloudy. . He reported that last night he had a little bit of upper abdominal pain especially when he was gagging and coughing. However, he thought it was just muscle spasm from his coughing so he did not pay any attention. He went to bed with his cycler on and this morning he he saw his dialysate bags to be cloudy. He called his pickle pumper and was instructed to come to the emergency room. . He also complained of intractable diarrhea as per ED nurses saw him he had about 4 bowel movements in 20 minutes. On further questioning, patient explained that he was constipated yesterday, so he took a bunch of laxative pills and since then he started the diarrhea and it wouldn't stop. On first arrival to the ED, patient was very dirty and soiled in stool. His groin is red and excoriated. The skin around the suprapubic catheter site is raw with a small ulcer on one side. Eval uation of the PD fluid showed that time. WBC count was very high, so he was diagnosed with the PD peritonitis and admitted to the hospital. His UA was also very dirty catheter related UTi vs colonization. PD peritonitis Patient has been ordered. Gentamicin and vancomycin intraperitoneally by nephr olsatindery Continue PD exchanges as per nephrology PD cell count now < 100 PD fluid Acinetobacter started on Cefepime Chronic indwelling Catheter related UTI Urine culture pseudomonas cefepime. Poor venous access will place PICC line for now once blood cultures are negative, prior to discharge will send to IR for a infusaport placement. This has to be done before discharge as patient will not be able to come back and forth to the hospital. Diarrhea This is after ingesting laxatives resolved. Chronic abdominal wound Follow wound care dressing recommendations as per Dr Castanon ESRD On PD There is some fluid overload seen at [facility] flanks and upper thighs. Neurogenic bladder with suprapubic catheter Patient is on fosfomycin once a week for suppressive prophylaxis of infection will resume after iv antibiotics are finished. now on cefepime DM with neuropathy Does not need any medications for diabetes at present Continue gabapentin. , Aspirin Hyperlipidemia Statin Multiple sclerosis, paraplegia, AKA Bedbound/ abdiel Tizanidine Plan/VTE VTE Prophylaxis Ordered?: Yes VS, I&O, 24H, Fishbone Vital Signs/I&O Vital Signs Date Time Temp Pulse Resp B/P (MAP) Pulse Ox O2 Delivery O2 Flow Rate FiO2 07/11/20 06:00 97.7 93 20 109/67 (81) 93 Room Air I&O- Last 24 Hours up to 6 AM 07/11/20 06:00 Intake Total 18229 ml Output Total 32318 ml Balance 739 ml Laboratory Data 24H LABS Laboratory Tests 2 07/11/20 06:07: Immature Granulocyte % (Auto) 0.4, Neutrophils (%) (Auto) 70.6H, Lymphocytes (%) (Auto) 18.9L, Monocytes (%) (Auto) 6.0, Eosinophils (%) (Auto) 3.5H, Basophils (%) (Auto) 0.6, Neutrophils # (Auto) 7.2, Lymphocytes # (Auto) 1.9, Monocytes # (Auto) 0.6, Eosinophils # (Auto) 0.4, Basophils # (Auto) 0.1, Nucleated Red Blood Cells % (auto) 0.0, Body Fluid WBC (Auto) 94H, Body Fluid RBC (Auto) < 2, Body Fluid Mononuclear Cells % Auto 67.0H, Fluid Polymorphonuclear Cell % Auto 33.0H, Peritoneal Fluid Source PERITONEAL, Peritoneal Fluid Color COLORLESS, Peritoneal Fluid Appearance CLEAR, Anion Gap 7L, Glomerular Filtration Rate 18.6L, Calcium Level 6.7L CBC/BMP Laboratory Tests 07/11/20 06:07 Microbiology Microbiology 07/08/20 Urine Culture - Final, Complete Pseudomonas Aeruginosa Corynebacterium Species 07/08/20 Gram Stain - Final, Complete 07/08/20 Body Fluid Culture - Final, Complete Acinetobacter Baumannii Comple 07/08/20 Blood Culture - Preliminary, Resulted No Growth after 48 hours. All Specime... 07/08/20 Blood Culture - Preliminary, Resulted No Growth after 48 hours. All Specime... 07/08/20 Respiratory Virus Panel (PCR) ([facility]) - Final, Complete 07/08/20 Gram Stain - Final, Complete 07/08/20 Body Fluid Culture - Final, Complete Acinetobacter Baumannii Comple ROSE LUIS MD July 11, 2020 08:40
[2020-07-11] MEDS ORDERED: DARBEPOETIN 200MCG/0.4ML *NON-DIALYSIS* SYRINGE (J0881 PER 1MCG) SC SCH (09:00)
[2020-07-11 11:13] LABS: ALBUMIN 1.3 GM/DL (3.2-5.2)
[2020-07-11] MEDS ORDERED: CALCIUM GLUCONATE 1,000 MG in D5W MINI-BAG PLUS 100 ML IV ONE (11:15)
[2020-07-11] MEDS ORDERED: FUROSEMIDE 100MG/10ML VIAL (J1940) IV ONE (13:20)
[2020-07-11 14:00] VITALS: BP 108/66
[2020-07-11] MEDS: CEFEPIME HCL 1 GM in D5W MINI-BAG PLUS 50 ML IV SCH (18:27)
[2020-07-11] MEDS: ALBUTEROL SULFATE 2.5 MG/0.5 ML INH NEB SOLN NEB PRN (19:54)
[2020-07-11 22:00] VITALS: BP 108/66
[2020-07-11] MEDS: ATORVASTATIN 10 MG TAB PO SCH (22:31)
[2020-07-11] MEDS: FUROSEMIDE 100MG/10ML VIAL (J1940) IV SCH (22:32)
[2020-07-11] MEDS: GENTAMICIN SULF 80MG/2ML VIAL IP SCH (22:33)
[2020-07-12 06:00] VITALS: BP 108/66
[2020-07-12] MEDS: SODIUM CHLORIDE 0.9% INJ 10 ML SYR IV SCH ×2 (06:31→19:44)
[2020-07-12] MEDS: FUROSEMIDE 100MG/10ML VIAL (J1940) IV SCH ×3 (06:31→20:50)
[2020-07-12 07:20] LABS: BASO # 0.1 10^3/uL (0.0-0.2); BASO % 0.5 % (0.0-1.0); EOS # 0.4 10^3/uL (0.0-0.5); EOS % 3.6 % (0.0-3.0); HEMATOCRIT 31.4 % (42.0-52.0); HEMOGLOBIN 9.8 g/dl (13.5-17.5); LYMPH # 2.8 10^3/uL (1.5-5.0); LYMPH % 24.7 % (24.0-44.0); MEAN CORPUSCULAR HEMOGLOBIN 26.3 pg (27.0-33.0); MEAN CORPUSCULAR HGB CONC 31.2 g/dl (32.0-36.5); MEAN CORPUSCULAR VOLUME 84.4 fl (80.0-96.0); MONO # 0.8 10^3/uL (0.0-0.8); MONO % 7.5 % (2.0-8.0); NEUTROPHILS % 63.1 % (36.0-66.0); PLATELET COUNT, AUTOMATED 385 10^3/uL (150-450); RED BLOOD COUNT 3.72 10^6/uL (4.30-6.10); WHITE BLOOD COUNT 11.1 10^3/uL (4.0-10.0)
[2020-07-12 07:40] LABS: CALCIUM LEVEL 7.3 MG/DL (8.5-10.1); CREATININE FOR GFR 3.67 MG/DL (0.70-1.30); GLOMERULAR FILTRATION RATE 18.4 (>56); POTASSIUM SERUM 3.9 MEQ/L (3.5-5.1)
[2020-07-12 08:51] LABS: APPEARANCE, BODY FLUID CLEAR (CLEAR); PERITONEAL FL COLOR COLORLESS (COLORLESS); SOURCE, BODY FLUID PERITONEAL
[2020-07-12] MEDS: POTASSIUM CHLORIDE 10 MEQ SR TABLET PO SCH ×2 (09:20→20:37)
[2020-07-12] MEDS: ASPIRIN 81MG ENTERIC TABLET PO SCH (09:20)
[2020-07-12] MEDS: ALBUTEROL SULFATE 2.5 MG/0.5 ML INH NEB SOLN NEB PRN ×3 (09:23→19:58)
--- NOTE | 2020-07-12 09:58 | IPN ---
NEPHROLOGY PROGRESS NOTE DATE: 07/11/2020 SUBJECTIVE: Patient was seen and examined at the bedside today morning. He denies any active complaints apart from swelling in the legs. His peritoneal fluid cell count is getting better. He denies any active complaints with the peritoneal dialysis. Fluid was having fibrin yesterday, so he needed intraperitoneal Argatroban last night. His urine is also getting more clear now. OBJECTIVE: VITAL SIGNS: Temperature degrees 97.7 Fahrenheit, blood pressure 109/67, pulse 93, respiratory rate 20, saturating 93% on room air. INTAKE AND OUTPUT: Urine output recorded as 400 mL yesterday, 100 mL so far today since overnight. Weight in the bed scale is not available. PHYSICAL EXAMINATION: GENERAL: Patient is awake, alert, oriented times three, morbidly obese, laying in bed, no apparent distress. HEAD AND NECK EXAM: Extraocular muscles intact. Pupils equally round and reactive to light. Mucous membranes are moist. Neck is supple. CARDIOVASCULAR: S1, S2. Regular rate. 2+ edema of the thighs is noted. RESPIRATORY: Chest is clear to auscultation bilaterally. ABDOMEN: Soft. Obese body habitus. Right lower quadrant peritoneal dialysis (PD) catheter. Left abdominal wall ulcer was noted. GENITOURINARY: He has a suprapubic catheter. Urine in the bag is getting clearer. MUSCULOSKELETAL: Left [id number] amputation is noted. CENTRAL NERVOUS SYSTEM (FILM AND VIDEO EDITOR): Patient has multiple sclerosis. He follows commands and moves upper extremities. LABORATORY REVIEW: CBC showed WBC 10.2, hemoglobin 9.8, platelets 390. BMP showed sodium 131, potassium 3.8, chloride 94, bicarbonate 30, BUN 34, creatinine 3.6, calcium 6.7. Albumin 1.3. CURRENT INPATIENT MEDICATIONS: Patient's medications were all reviewed by myself. He continues to be on intraperitoneal gentamicin and intravenous (IV) cefepime. I gave him an extra dose of Lasix 60 mg IV. He was also given a dose of IV calcium gluconate today morning. ASSESSMENT AND PLAN: 1. End-stage renal disease. Patient is peritoneal dialysis dependent. Continue current exchange amount. However, I am increasing more exchanges of 2.5% because of lower extremity edema. 2. Acute peritonitis with peritoneal dialysis catheter. Cultures grew Acinetobacter, which is sensitive to both cefepime and gentamicin. Continue current antibiotics. 3. Pseudomonas urinary tract infection and presence of suprapubic catheter. Continue IV cefepime. 4. Anemia in end-stage renal disease. Hemoglobin is 9.8, which is stable and improving. 5. Hypokalemia. It has resolved with oral potassium now. 6. Lower extremity edema. As mentioned above. Peritoneal dialysis (PD) regimen is being changed to more 2.5% exchanges. He was also given a dose of Lasix 80 mg IV. 7. Hypocalcemia. Patient has low albumin as well. However, he was given one dose of IV calcium gluconate.
--- NOTE | 2020-07-12 11:12 | IPNPDOC ---
Subjective Date Seen The patient was seen on 07/12/20. Subjective Chief Complaint/HPI Last evening had an episode of wheezing and SOB with coughing and vomiting. This is more when he sits up. Could be due to pressure from the dialysate. [place] better with albuterol. CT showed bilateral pleural effusion. Objective Physical Examination General Exam: Positive: Alert, Cooperative, No Acute Distress Eye Exam: Positive: Conjunctiva & lids normal, EOMI Neck Exam: Positive: Supple; Negative: JVD, thyromegaly Chest Exam: Positive: Clear to auscultation, Normal air movement Heart Exam: Positive: Rate Normal, Regular Rhythm, Normal S1, Normal S2, Murmurs (, systolic murmur present); Negative: Rubs Abdomen Exam: Positive: Normal bowel sounds, Soft, Other (suprapubic catheter); Negative: Tenderness, Hepatospenomegaly Extremity Exam: Positive: Other (, left AKA) Skin Exam: Positive: Breakdown (in the abdominal wall), Other skin issue (skin on the back and buttocks are red but not open) Neuro Exam: Positive: Normal Speech Assessment /Plan Assessment 54-year-old bedbound male/ abdiel lift, with past medical history of multiple sclerosis, paraplegia, neurogenic bladder with suprapubic catheter, left AKA in 2019 due to Left foot spreading infection and peripheral vascular disease, ESRD from 2020, on peritoneal dialysis, with chronic abdominal wound, presented to the ED because he noticed that his PD fluid bag this morning was cloudy. . He reported that last night he had a little bit of upper abdominal pain especially when he was gagging and coughing. However, he thought it was just muscle spasm from his coughing so he did not pay any attention. He went to bed with his cycler on and this morning he he saw his dialysate bags to be cloudy. He called his rn psychiatric and was instructed to come to the emergency room. . He also complained of intractable diarrhea as per ED nurses saw him he had about 4 bowel movements in 20 minutes. On further questioning, patient explained that he was constipated yesterday, so he took a bunch of laxative pills and since then he started the diarrhea and it wouldn't stop. On first arrival to the ED, patient was very dirty and soiled in stool. His groin is red and excoriated. The skin around the suprapubic catheter site is raw with a small ulcer on one side. Evaluation of the PD fluid showed that time. WBC count was very high, so he was diagnosed with the PD peritonitis and admitted to the hospital. His UA was also very dirty catheter related UTi vs colonization. PD peritonitis Patient has been ordered. Gentamicin and vancomycin intraperitoneally by nephrology Continue PD exchanges as per nephrology PD cell count now < 100 PD fluid Acinetobacter started on Cefepime Chronic indwelling Catheter related UTI Urine culture pseudomonas cefepime. Fluid overload/CHF Intermittent episodes of wheezing, coughing and sob and vomiting likely due to fluid overload PD exchanges have been adjusted to get neg balance albuterol prn. Echo ordered. Intermitted nausea and dry heaves. will get a gastric emptying study as may also have gastroparesis Poor venous access will place PICC line for now once blood cultures are negative, prior to discharge will send to IR for a infusaport placement. This has to be done before discharge as patient will not be able to come back and forth to the hospital. Chronic abdominal wound Follow wound care dressing recommendations as per Dr Castanon ESRD On PD There is fluid overload seen at the flanks and upper thighs and back. Multiple sclerosis, paraplegia, and right upper extremity weakness, neurogenic bladder. Bedbound/ abdiel Tizanidine prn Neurogenic bladder with suprapubic catheter Patient is on fosfomycin once a week for suppressive prophylaxis of infection will resume after iv antibiotics are finished. now on cefepime DM with neuropathy Does not need any medications for diabetes at present Continue gabapentin. , Aspirin Gangrene of left foot with PAD s/p left AKA in 09/2019 at [facility]. Hyperlipidemia Statin H/o gluteal and sacral pressure ulcers in 2019 now healed Plan/VTE VTE Prophylaxis Ordered?: Yes VS, I&O, 24H, Fishbone Vital Signs/I&O Vital Signs Date Time Temp Pulse Resp B/P (MAP) Pulse Ox O2 Delivery O2 Flow Rate FiO2 07/12/20 06:00 98.1 96 18 108/66 (80) 95 Room Air I&O- Last 24 Hours up to 6 AM 07/12/20 07:00 Intake Total 66190 ml Output Total 8725 ml Balance 1480 ml Laboratory Data Microbiology Microbiology 07/08/20 Urine Culture - Final, Complete Pseudomonas Aeruginosa Corynebacterium Species 07/08/20 Gram Stain - Final, Complete 07/08/20 Body Fluid Culture - Final, Complete Acinetobacter Baumannii Comple 07/08/20 Blood Culture - Preliminary, Resulted No Growth after 72 hours. All specime... 07/08/20 Blood Culture - Preliminary, Resulted No Growth after 72 hours. All specime... 07/08/20 Respiratory Virus Panel (PCR) ([facility]) - Final, Complete 07/08/20 Gram Stain - Final, Complete 07/08/20 Body Fluid Culture - Final, Complete Acinetobacter Baumannii Comple ROSE LUIS MD July 12, 2020 07:06
--- NOTE | 2020-07-12 13:45 | REP ---
INDICATION: dm with episodes of vomiting, retching. COMPARISON: None. TECHNIQUE/RADIOTRACER AND DOSE: 1.0 mCi of Technetium-99m sulfur colloid was ingested in two scrambled eggs and 6 ounces of water and sequential anterior and posterior images are acquired for an 89-minute imaging observation period. Regions of interest are drawn around the stomach to plot gastric emptying. FINDINGS: Expected T1/2 is 90 minutes. Thirty% emptying is observed in this patient during the 89-minute imaging observation period, for a calculated T1/2 in this patient of 156 minutes. IMPRESSION: Delayed gastric emptying.. <Electronically signed by Felipe Powers > 07/12/20 [id number]
[2020-07-12 14:00] VITALS: BP 107/67
[2020-07-12] MEDS: CEFEPIME HCL 1 GM in D5W MINI-BAG PLUS 50 ML IV SCH (19:44)
[2020-07-12] MEDS: ATORVASTATIN 10 MG TAB PO SCH (20:36)
[2020-07-12] MEDS: GENTAMICIN SULF 80MG/2ML VIAL IP SCH (21:43)
[2020-07-12 22:00] VITALS: BP 106/72
[2020-07-13] MEDS: ALBUTEROL SULFATE 2.5 MG/0.5 ML INH NEB SOLN NEB PRN ×3 (05:07→19:25)
[2020-07-13] MEDS: SODIUM CHLORIDE 0.9% INJ 10 ML SYR IV SCH ×2 (05:21→18:41)
[2020-07-13] MEDS: FUROSEMIDE 100MG/10ML VIAL (J1940) IV SCH (05:21)
[2020-07-13 05:42] LABS: BASO # 0.1 10^3/uL (0.0-0.2); BASO % 0.7 % (0.0-1.0); EOS # 0.4 10^3/uL (0.0-0.5); HEMATOCRIT 29.8 % (42.0-52.0); HEMOGLOBIN 9.5 g/dl (13.5-17.5); LYMPH # 2.9 10^3/uL (1.5-5.0); LYMPH % 22.5 % (24.0-44.0); MEAN CORPUSCULAR HEMOGLOBIN 26.8 pg (27.0-33.0); MEAN CORPUSCULAR HGB CONC 31.9 g/dl (32.0-36.5); MEAN CORPUSCULAR VOLUME 83.9 fl (80.0-96.0); MONO # 0.9 10^3/uL (0.0-0.8); NEUTROPHILS # 8.4 10^3/uL (1.5-8.5); NEUTROPHILS % 66.1 % (36.0-66.0); PLATELET COUNT, AUTOMATED 362 10^3/uL (150-450); RED BLOOD COUNT 3.55 10^6/uL (4.30-6.10); WHITE BLOOD COUNT 12.7 10^3/uL (4.0-10.0)
[2020-07-13 06:00] VITALS: BP 102/67
[2020-07-13 06:12] LABS: ALBUMIN 1.3 GM/DL (3.2-5.2); ALT/SGPT 9 U/L (12-78); BILIRUBIN,DIRECT < 0.1 MG/DL (0.0-0.2); BILIRUBIN,TOTAL 0.2 MG/DL (0.2-1.0); BLOOD UREA NITROGEN 34 MG/DL (7-18); CALCIUM LEVEL 7.4 MG/DL (8.5-10.1); CARBON DIOXIDE LEVEL 28 MEQ/L (21-32); CHLORIDE LEVEL 99 MEQ/L (98-107); CREATININE FOR GFR 3.91 MG/DL (0.70-1.30); GLOMERULAR FILTRATION RATE 17.1 (>56); GLUCOSE, FASTING 143 MG/DL (70-100); POTASSIUM SERUM 4.1 MEQ/L (3.5-5.1); SODIUM LEVEL 134 MEQ/L (136-145); TOTAL PROTEIN 6.6 GM/DL (6.4-8.2)
[2020-07-13 07:15] LABS: APPEARANCE, BODY FLUID CLEAR (CLEAR); PERITONEAL FL COLOR COLORLESS (COLORLESS); SOURCE, BODY FLUID PERITONEAL
[2020-07-13] MEDS: POTASSIUM CHLORIDE 10 MEQ SR TABLET PO SCH ×2 (09:14→21:27)
[2020-07-13] MEDS: ASPIRIN 81MG ENTERIC TABLET PO SCH (09:14)
--- NOTE | 2020-07-13 11:19 | IPNPDOC ---
Subjective Date Seen The patient was seen on 07/13/20. Subjective Chief Complaint/HPI No issues overnight. Patient did not have any SOB last night but did use albuterol nebs 4 times yesterday. Objective Physical Examination General Exam: Positive: Alert, Cooperative, No Acute Distress Eye Exam: Positive: Conjunctiva & lids normal, EOMI Neck Exam: Positive: Supple; Negative: JVD, thyromegaly Chest Exam: Positive: Clear to auscultation, Normal air movement Heart Exam: Positive: Rate Normal, Regular Rhythm, Normal S1, Normal S2, Murmurs (, systolic murmur present); Negative: Rubs Abdomen Exam: Positive: Normal bowel sounds, Soft, Other (suprapubic catheter); Negative: Tenderness, Hepatospenomegaly Extremity Exam: Positive: Other (, left AKA) Skin Exam: Positive: Breakdown (in the abdominal wall), Other skin issue (skin on the back and buttocks are red but not open) Neuro Exam: Positive: Normal Speech Assessment /Plan Assessment 54-year-old bedbound male/ abdiel lift, with past medical history of multiple sclerosis, paraplegia, neurogenic bladder with suprapubic catheter, left AKA in 2019 due to Left foot spreading infection and peripheral vascular disease, ESRD from 2020, on peritoneal dialysis, with chronic abdominal wound, presented to the ED because he noticed that his PD fluid bag this morning was cloudy. . He reported that last night he had a little bit of upper abdominal pain especially when he was gagging and coughing. However, he thought it was just muscle spasm from his coughing so he did not pay any attention. He went to bed with his c ycler on and this morning he he saw his dialysate bags to be cloudy. He called his systems software manager and was instructed to come to the emergency room. . He also complained of intractable diarrhea as per ED nurses saw him he had about 4 bowel movements in 20 minutes. On further questioning, patient explained that he was constipated yesterday, so he took a bunch of laxative pills and since then he started the diarrhea and it wouldn't stop. On first arrival to the ED, patient was very dirty and soiled in stool. His groin is red and excoriated. The skin around the suprapubic catheter site is raw with a small ulcer on one side. Evaluation of the PD fluid showed that time. WBC count was very high, so he was diagnosed with the PD peritonitis and admitted to the hospital. His UA was also very dirty catheter related UTi vs colonization. PD peritonitis Patient has been ordered. Gentamicin and vancomycin intraperitoneally by nephrology Continue PD exchanges as per nephrology PD cell count now < 100 PD fluid Acinetobacter started on Cefepime Chronic indwelling Catheter related UTI Urine culture pseudomonas cefepime. Fluid overload/CHF Intermittent episodes of wheezing, coughing and sob and vomiting likely due to fluid overload PD exchanges have been adjusted to get neg balance albuterol prn. Echo ordered. Intermitted nausea and dry heaves. gastric emptying study shows gastroparesis. Only 30% of the food moves in 2 hours. DM with neuropathy Does not need any medications for diabetes at present Continue gabapentin. , Aspirin Poor venous access will place PICC line for now once blood cultures are negative, prior to discharge will send to IR for a infusaport placement. This has to be done before discharge as patient will not be able to come back and forth to the hospital. Chronic abdominal wound Follow wound care dressing recommendations as per Dr Castanon ESRD On PD There is fluid overload seen at the flanks and upper thighs and back. Multiple sclerosis, paraplegia, and right upper extremity weakness, neurogenic bladder. Bedbound/ abdiel Tizanidine prn Neurogenic bladder with suprapubic catheter Patient is on fosfomycin once a week for suppressive prophylaxis of infection will resume after iv antibiotics are finished. now on cefepime Gangrene of left foot with PAD s/p left AKA in 09/2019 at [facility]. Hyperlipidemia Statin H/o gluteal and sacral pressure ulcers in 2019 now healed Plan/VTE VTE Prophylaxis Ordered?: Yes VS, I&O, 24H, Fishbone Vital Signs/I&O Vital Signs Date Time Temp Pulse Resp B/P (MAP) Pulse Ox O2 Delivery O2 Flow Rate FiO2 07/13/20 06:00 97.9 107 20 102/67 (79) 97 07/12/20 14:00 Room Air I&O- Last 24 Hours up to 6 AM 07/13/20 06:00 Intake Total 9030 ml Output Total 72287 ml Balance -1195 ml Laboratory Data 24H LABS Laboratory Tests 2 07/13/20 05:30: Immature Granulocyte % (Auto) 0.7, Neutrophils (%) (Auto) 66.1H, Lymphocytes (%) (Auto) 22.5L, Monocytes (%) (Auto) 7.0, Eosinophils (%) (Auto) 3.0, Basophils (%) (Auto) 0.7, Neutrophils # (Auto) 8.4, Lymphocytes # (Auto) 2.9, Monocytes # (Auto) 0.9H, Eosinophils # (Auto) 0.4, Basophils # (Auto) 0.1, Nucleated Red Blood Cells % (auto) 0.0, Anion Gap 7L, Glomerular Filtration Rate 17.1L, Calcium Level 7.4L, Total Bilirubin 0.2, Direct Bilirubin < 0.1, Aspartate Amino Transf (AST/SGOT) 12, Alanine Aminotransferase (ALT/SGPT) 9L, Alkaline Phosphatase 108, Total Protein 6.6, Albumin 1.3L, Albumin/Globulin Ratio 0.2 07/13/20 06:51: CBC/BMP Laboratory Tests 07/13/20 05:30 Microbiology Microbiology 07/08/20 Urine Culture - Final, Complete Pseudomonas Aeruginosa Corynebacterium Species 07/08/20 Gram Stain - Final, Complete 07/08/20 Body Fluid Culture - Final, Complete Acinetobacter Baumannii Comple 07/08/20 Blood Culture - Preliminary, Resulted No Growth after 72 hours. All specime... 07/08/20 Blood Culture - Preliminary, Resulted No Growth after 72 hours. All specime... 07/08/20 Respiratory Virus Panel (PCR) ([facility]) - Final, Complete 07/08/20 Gram Stain - Final, Complete 07/08/20 Body Fluid Culture - Final, Complete Acinetobacter Baumannii Comple ROSE LUIS MD July 13, 2020 07:17
--- NOTE | 2020-07-13 12:55 | IPN ---
PROGRESS NOTE DATE: 07/13/2020 SUBJECTIVE: Eitan is seen and examined this morning at the bedside. He reports that his edema is improved. He denies any complaints today. He inquires about discharge planning. His peritoneal dialysis exchanges have been uneventful, and his peritoneal cell counts have been within normal limits the past 3 days. He continues on both intravenous (IV) and intraperitoneal antibiotics and is afebrile and hemodynamically stable. Temperature 97.9, pulse 107, respiratory rate 20, blood pressure 102/67, saturating 97% on room air. Review of intake and output yesterday shows net negative 1 liter. Weight in the bed scale today is 97.6 kg. GENERAL: Patient is seen lying flat in bed. Appears chronically ill, debilitated, and older than stated age but is not in any acute distress. Extraocular muscles are intact. Tongue is moist. Neck is supple. Jugular veins are not elevated. HEART: Sounds are regular, S1, S2. There is only 1+ leg edema of the thighs and dependent areas noted today. CHEST: Remains clear to auscultation bilaterally. He is comfortable on room air. There is no crackle or wheeze. ABDOMEN: Soft and obese. There are dressings over the left abdominal wall ulcer area, and there is a right lower quadrant peritoneal dialysis (PD) catheter with clean exit site. GENITOURINARY: There is a suprapubic catheter draining clear, yellow urine. MUSCULOSKELETAL: Left above-knee amputation is noted. There is 1+ dependent edema, and it is improved as compared to yesterday. NEUROLOGIC: Patient is bed bound with multiple sclerosis. He follows commands and moves upper extremities and is at his baseline mentation. LABORATORY DATA: Peritoneal cell count shows less than 30 WBC the past 2 days. Serum sodium 134, potassium 4.1, bicarbonate 28, BUN 34, creatinine 3.9, albumin 1.3. Hemoglobin 9.5, white count 12.7. INPATIENT MEDICATION: Reviewed by myself. I stopped the intravenous (IV) Lasix. He continues on IV cefepime and intraperitoneal gentamicin. His remainder of medications is unchanged as compared to yesterday. PROBLEMS: 1. End-stage renal disease, on peritoneal dialysis. Patient has had improvement in his hypervolemia. He has been on a more aggressive regimen of five exchanges daily with 2.5 and 4.25% dianeal. He is in net-negative fluid balance the past 24 hours and is having adequate ultrafiltration with each exchange. Continue current prescription. 2. Acute peritonitis associated with peritoneal dialysis catheter. His peritoneal cell count has been within normal limits the past 3 days. His culture grew Acinetobacter, and he is currently receiving IV cefepime and intraperitoneal gentamicin. He can switch over to oral antibiotic upon discharge. 3. Pseudomonas urinary tract infection (UTI) with the presence of a suprapubic catheter. The patient is on IV cefepime and is clinically improved. 4. Anemia related to end-stage renal disease and iron deficiency. He cannot tolerate iron supplementation. He got a dose of Aranesp on this admission. Hemoglobin is suboptimal but stable in the 9's. 5. Hypokalemia. He continues on oral potassium supplementation. 6. Lower extremity edema. mentioned above, he is on a more aggressive peritoneal dialysis prescription and has been having adequate ultrafiltration and fluid removal. His volume status has improved. I stopped the IV Lasix. 7. Hypervolemic hyponatremia. His sodium level has come up with increasing fluid removal. 8. Hypoalbuminemia and protein-calorie malnutrition. He is written for a high-protein diet, and I have advised him that he needs to maximize his protein intake in view of his abdominal wounds.
[2020-07-13 14:00] VITALS: BP 98/66
[2020-07-13] MEDS: CEFEPIME HCL 1 GM in D5W MINI-BAG PLUS 50 ML IV SCH (18:41)
[2020-07-13] MEDS: ATORVASTATIN 10 MG TAB PO SCH (21:27)
[2020-07-13] MEDS: GENTAMICIN SULF 80MG/2ML VIAL IP SCH (21:34)
[2020-07-13 22:00] VITALS: BP 108/80
[2020-07-14] MEDS: SODIUM CHLORIDE 0.9% INJ 10 ML SYR IV SCH ×2 (05:49→17:37)
[2020-07-14 06:00] VITALS: BP 102/60
[2020-07-14 06:18] LABS: BASO # 0.1 10^3/uL (0.0-0.2); BASO % 0.9 % (0.0-1.0); EOS # 0.5 10^3/uL (0.0-0.5); EOS % 3.7 % (0.0-3.0); HEMATOCRIT 30.5 % (42.0-52.0); HEMOGLOBIN 9.7 g/dl (13.5-17.5); LYMPH # 3.5 10^3/uL (1.5-5.0); LYMPH % 23.7 % (24.0-44.0); MEAN CORPUSCULAR HEMOGLOBIN 26.8 pg (27.0-33.0); MEAN CORPUSCULAR HGB CONC 31.8 g/dl (32.0-36.5); MEAN CORPUSCULAR VOLUME 84.3 fl (80.0-96.0); MONO # 0.9 10^3/uL (0.0-0.8); MONO % 5.9 % (2.0-8.0); NEUTROPHILS # 9.6 10^3/uL (1.5-8.5); NEUTROPHILS % 64.9 % (36.0-66.0); PLATELET COUNT, AUTOMATED 373 10^3/uL (150-450); RED BLOOD COUNT 3.62 10^6/uL (4.30-6.10); WHITE BLOOD COUNT 14.8 10^3/uL (4.0-10.0)
[2020-07-14 06:30] LABS: CALCIUM LEVEL 7.5 MG/DL (8.5-10.1); CREATININE FOR GFR 3.97 MG/DL (0.70-1.30); GLOMERULAR FILTRATION RATE 16.8 (>56); POTASSIUM SERUM 4.2 MEQ/L (3.5-5.1)
[2020-07-14] MEDS: POTASSIUM CHLORIDE 10 MEQ SR TABLET PO SCH ×2 (08:46→22:03)
[2020-07-14] MEDS: ASPIRIN 81MG ENTERIC TABLET PO SCH (08:46)
[2020-07-14] MEDS: NYSTATIN 100,000 UNITS/GM TOPICAL PWD 15 GM TOP PRN (08:52)
--- NOTE | 2020-07-14 11:36 | ECHO ---
DATE OF PROCEDURE: 07/08/2020 Age: 54 Gender: Male Height: 180 cm Weight: 105 kg REFERRING PHYSICIAN: Jany Mcguire MD INDICATION: Heart failure, unspecified. MEASUREMENTS: 2D Measurements: Aortic root 3.6 cm Left atrium 4.4 cm Left ventricle diastole 1.52 cm Posterior wall 1.41 cm Left ventricle diastole 4.3 cm Aortic annulus 2.7 cm Inferior vena cava 1.7 cm Doppler Measurements: Mild aortic stenosis No aortic regurgitation Aortic valve velocity 288 cm/s Aortic valve VTI 29.9 cm Peak aortic valve gradient 33 mmHg Mean aortic valve gradient 17 mmHg LVOT velocity 76.3 cm/s LVOT VTI 11.3 cm ? Very mild mitral regurgitation No mitral stenosis Combined summation E&A wave velocity 191 cm/s Trace tricuspid regurgitation Pulmonary artery acceleration time 98 msec suggestive of mild elevation of pulmonary artery systolic pressure MITRAL ANNULAR TISSUE DOPPLER E prime lateral 6.1 cm/s DESCRIPTION: Rhythm was sinus tachycardia, P-synchronous ventricular paced rhythm. This was a moderately technically difficult echocardiogram. CONCLUSIONS: 1. Mild concentric left ventricular hypertrophy with normal regional LV wall motion and wall thickening. Normal LV systolic function. LVEF 60% by visual estimate. Indeterminate assessment of LV diastolic function due to complete fusion of the early rapid filling phase and atrial filling phase showing sinus tachycardia. Reduced mitral annular tissue Doppler (lateral) consistent with some degree of LV diastolic dysfunction. 2. Mild left atrial dilatation. 3. Moderate aortic valve sclerosis of a 3-cuspid aortic valve. Mild aortic stenosis. No aortic regurgitation. 4. Severe mitral annular calcification. Very mild mitral regurgitation. No mitral stenosis. 5. Suggestive of mild elevation of pulmonary artery systolic pressure. 6. No pericardial effusion. 7. Presence of ascites. 8. Presence of endocardial, right atrial, and right ventricle pacemaker leads. 9. Moderately technically difficult echocardiogram. [facility]
[2020-07-14] MEDS: ALBUTEROL SULFATE 2.5 MG/0.5 ML INH NEB SOLN NEB PRN (12:00)
--- NOTE | 2020-07-14 12:09 | IPNPDOC ---
Subjective Date Seen The patient was seen on 07/14/20. Subjective Chief Complaint/HPI No complaints this morning. SOB is better with albuterol. As started altering his meals, eating smaller meals more frequently Objective Physical Examination General Exam: Positive: Alert, Cooperative, No Acute Distress Eye Exam: Positive: Conjunctiva & lids normal, EOMI Neck Exam: Positive: Supple; Negative: JVD, thyromegaly Chest Exam: Positive: Clear to auscultation, Normal air movement Heart Exam: Positive: Rate Normal, Regular Rhythm, Normal S1, Normal S2, Murmurs (, systolic murmur present); Negative: Rubs Abdomen Exam: Positive: Normal bowel sounds, Soft, Other (suprapubic catheter); Negative: Tenderness, Hepatospenomegaly Extremity Exam: Positive: Other (, left AKA) Skin Exam: Positive: Breakdown (in the abdominal wall), Other skin issue (skin on the back and buttocks are red but not open) Neuro Exam: Positive: Normal Speech Assessment /Plan Assessment 54-year-old bedbound male/ abdiel lift, with past medical history of multiple sclerosis, paraplegia, neurogenic bladder with suprapubic catheter, left AKA in 2019 due to Left foot spreading infection and peripheral vascular disease, ESRD from 2020, on peritoneal dialysis, with chronic abdominal wound, presented to the ED because he noticed that his PD fluid bag this morning was cloudy. . He reported that last night he had a little bit of upper abdominal pain especially when he was gagging and coughing. However, he thought it was just muscle spasm from his coughing so he did not pay any attention. He went to bed with his cycler on and this morning he he saw his dialysate bags to be cloudy. He called his exhibit artist and was instructed to come to the emergency room. . He also complained of intractable diarrhea as per ED nurses saw him he had about 4 bowel movements in 20 minutes. On further questioning, patient explained that he was constipated yesterday, so he took a bunch of laxative pills and since then he started the diarrhea and it wouldn't stop. On first arrival to the ED, patient was very dirty and soiled in stool. His groin is red and excoriated. The skin around the suprapubic catheter site is raw with a small ulcer on one side. Evaluation of the PD fluid showed that time. WBC count was very high, so he was diagnosed with the PD peritonitis and admitted to the hospital. His UA was also very dirty catheter related UTi vs colonization. PD peritonitis Patient has been ordered. Gentamicin and vancomycin intraperitoneally by nephrology Continue PD exchanges as per nephrology PD cell count now < 100 PD fluid Acinetobacter started on Cefepime Chronic indwelling Catheter related UTI Urine culture pseudomonas cefepime. Fluid overload/CHF Intermittent episodes of wheezing, coughing and sob and vomiting likely due to fluid overload PD exchanges have been adjusted to get neg balance albuterol prn. Echo shows EF of 60% with mild diastolic dysfunction. Mild aortic stenosis, mild mitral regurgitation. Has ventricular pacemaker leads Intermitted nausea and dry heaves. gastric emptying study shows gastroparesis. Only 30% of the food moves in 2 hours. Discussed with patient dietary changes DM with neuropathy Does not need any medications for diabetes at present Continue gabapentin. , Aspirin Poor venous access will place PICC line for now once blood cultures are negative Would benefit from a infusaport. Discussed with IR this is done as an outpatient and cannot be done while he is in the hospital. Chronic abdominal wound Follow wound care dressing recommendations as per Dr Castanon ESRD On PD There is fluid overload seen at the flanks and upper thighs and back. Now having good negative balance with change in dialysate. Multiple sclerosis, paraplegia, and right upper extremity weakness, neurogenic bladder. Bedbound/ abdiel Tizanidine prn Neurogenic bladder with suprapubic catheter Patient is on fosfomycin once a week for suppressive prophylaxis of infection will resume after iv antibiotics are finished. now on cefepime Gangrene of left foot with PAD s/p left AKA in 09/2019 at [facility]. Hyperlipidemia Statin H/o gluteal and sacral pressure ulcers in 2019 now healed Plan/VTE VTE Prophylaxis Ordered?: Yes VS, I&O, 24H, Fishbone Vital Signs/I&O Vital Signs Date Time Temp Pulse Resp B/P (MAP) Pulse Ox O2 Delivery O2 Flow Rate FiO2 07/14/20 06:00 97.3 102 20 102/60 (74) 97 07/13/20 14:00 Room Air I&O- Last 24 Hours up to 6 AM 07/14/20 06:00 Intake Total 50586 ml Output Total 61828 ml Balance -1730 ml Laboratory Data 24H LABS Laboratory Tests 2 07/14/20 05:50: Immature Granulocyte % (Auto) 0.9, Neutrophils (%) (Auto) 64.9, Lymphocytes (%) (Auto) 23.7L, Monocytes (%) (Auto) 5.9, Eosinophils (%) (Auto) 3.7H, Basophils (%) (Auto) 0.9, Neutrophils # (Auto) 9.6H, Lymphocytes # (Auto) 3.5, Monocytes # (Auto) 0.9H, Eosinophils # (Auto) 0.5, Basophils # (Auto) 0.1, Nucleated Red Blood Cells % (auto) 0.0, Anion Gap 7L, Glomerular Filtration Rate 16.8L, Calcium Level 7.5L CBC/BMP Laboratory Tests 07/14/20 05:50 Microbiology Microbiology 07/08/20 Urine Culture - Final, Complete Pseudomonas Aeruginosa Corynebacterium Species 07/08/20 Gram Stain - Final, Complete 07/08/20 Body Fluid Culture - Final, Complete Acinetobacter Baumannii Comple 07/08/20 Blood Culture - Final, Complete NO GROWTH AFTER 5 DAYS 07/08/20 Blood Culture - Final, Complete NO GROWTH AFTER 5 DAYS 07/08/20 Respiratory Virus Panel (PCR) ([facility]) - Final, Complete 07/08/20 Gram Stain - Final, Complete 07/08/20 Body Fluid Culture - Final, Complete Acinetobacter Baumannii Comple ROSE LUIS MD July 14, 2020 08:20
[2020-07-14] MEDS ORDERED: CEFEPIME HCL 1 GM in D5W MINI-BAG PLUS 50 ML IV SCH (13:00)
[2020-07-14 14:00] VITALS: BP 98/56
--- NOTE | 2020-07-14 15:36 | IPN ---
PROGRESS NOTE DATE: 07/14/2020 SUBJECTIVE: Eitan is seen and examined this morning at the bedside. He denies any complaints. His edema is improving. He is in net negative fluid status the past 2 days. He is going to have a teleconference visit with Dr. Castanon this morning. He denies any shortness of breath. VITAL SIGNS: Temperature 97.3, pulse 102, respiratory rate 20, blood pressure 102/60, saturating 67%-100% on room air. Review of intake and output yesterday shows net negative 1.7 liters. Weight in the bed scale today is 96.5 kg, which is reduced as compared to prior days. GENERAL: Patient is seen lying in flat in bed, chronically ill and debilitated male, bed bound. Appears older than stated age but is not in any acute distress. Extraocular muscles are intact. Tongue is moist. Neck is supple. Jugular veins are not elevated. HEART: Sounds are regular and mildly tachycardic, S1, S2. There is still 1+ edema of the thighs and dependent areas noted today. CHEST: Clear to auscultation. He is comfortable on room air. There is no crackle or wheezes. Anterior auscultation only. ABDOMEN: soft and obese. There are dressings on the left abdominal wall ulcer are. There is a right lower quadrant peritoneal dialysis (PD) catheter with clean exit site. GENITOURINARY: There is a suprapubic catheter draining minimal clear yellow urine. MUSCULOSKELETAL: Left above-knee amputation. There is 1+ pitting edema of the stump, and his right lower extremity has 1+ edema s well. NEUROLOGIC: Patient is bed bound with multiple sclerosis. He follows commands and moves upper extremities and is at baseline mentation. LABORATORY DATA: Sodium 134, potassium 4.2, bicarbonate 28, BUN 37, creatinine 3.9. Hemoglobin 9.7. White count 14. INPATIENT MEDICATIONS: He continues on intravenous (IV) cefepime and intraperitoneal gentamicin. His remainder of medications is unchanged the past couple of days. PROBLEMS: 1. End-stage renal disease, on peritoneal dialysis. Patient has some mild hypervolemia and peripheral edema. He is on a more aggressive PD prescription and is in daily net-negative fluid balance the past 2 days. His daily weighs are down trending. He is going to receive two exchanges of 4.25% today and three exchanges of 2.5%. At home he usually just uses 2.5% most of the time. He has underlying presumed diastolic congestive heart failure (diastolic function could not be assessed on his most recent echo). 2. Acute peritonitis associated with peritoneal dialysis catheter. His PD cell counts have been normalized and are no longer being checked daily. He continues on intraperitoneal gentamicin. He can switch over to oral antibiotic upon discharge. 3. Pseudomonas urinary tract infection (UTI), being treated by primary team. Also complicated by the presence of a suprapubic catheter. He is on IV cefepime. I note that his serum white count has slowly up-trended. 4. Anemia of end-stage renal disease with iron deficiency. He cannot tolerate oral iron supplementation nor IV iron. He got a dose of Aranesp on this admission. Hemoglobin is suboptimal but stable in the 9's. 5. Hypokalemia. Continue current potassium prescription. 6. Hypoalbuminemia and protein-calorie malnutrition. He continues on a high-protein diet in view of renal failure, peritoneal dialysis, and abdominal wound.
--- NOTE | 2020-07-14 17:51 | CR ---
CONSULTATION DATE: 07/14/2020 Advance wound care consult via telemedicine. CONSULTATION REQUESTED BY: Dr. Mcguire REASON FOR CONSULTATION: Wound care suggestions for abdominal wound. Wound care telemedicine provides a visual assessment of a wound without the benefit of physical examination. It can assist with establishing a diagnosis of etiology. This allows for an initial treatment plan. As wounds often change, it may be necessary to modify the original care. Our recommendation is periodic wound reassessment to monitor treatment. Failure to comply may result in nonhealing of the wound, possible complications, and/or a poor outcome. The recommendation given will serve as a treatment option. As I will not be following this patient, this care plan will require the attending physician to give and sign the orders. Upon discharge, outpatient followup can be arranged at our wound care center. Will consent obtained patient identified. A 54-year-old male with advanced multiple sclerosis (MS) nonambulatory, undergoing peritoneal dialysis. He has been seen in our clinic in the recent past for multiple wounds. At present, they have all closed except for his abdominal wound, which has shown significant improvement. The patient was hospitalized for peritonitis secondary to an infected peritoneal dialysis catheter. Patient has been afebrile, and his white count has returned to normal. In general, he has stabilized. Blood cultures were negative. Urine showed pseudomonas, as the patient is still voiding but requires backup dialysis which he utilizes on a nightly basis. His dialysis catheter grew out Acinetobacter. Patient is on gentamicin and cefepime and has had a good response.. TREATMENT RECOMMENDATIONS: Clean the wound with Vashe wound cleanser by soaking a 4 x 4 gauze pad and applying it to the wound for 10 minutes. This should the be irrigated with saline, followed by a hydrocolloid DuoDerm dressing cut to the size of the wound.. This can be covered with an outer foam dressing as needed. Dressing changes should be every other day. If the patient has recurrent infections, the peritoneal dialysis catheter should be removed and a new catheter applied. Note I have discussed this case via telephone with Dr. Mcguire. [facility]
[2020-07-14 22:00] VITALS: BP 100/57
[2020-07-14] MEDS: ATORVASTATIN 10 MG TAB PO SCH (22:03)
[2020-07-14] MEDS: GENTAMICIN SULF 80MG/2ML VIAL IP SCH (22:03)
[2020-07-15] MEDS: SODIUM CHLORIDE 0.9% INJ 10 ML SYR IV SCH ×2 (05:16→17:32)
[2020-07-15 05:34] LABS: BASO # 0.1 10^3/uL (0.0-0.2); BASO % 0.7 % (0.0-1.0); EOS # 0.6 10^3/uL (0.0-0.5); EOS % 3.5 % (0.0-3.0); HEMATOCRIT 30.9 % (42.0-52.0); HEMOGLOBIN 9.7 g/dl (13.5-17.5); LYMPH # 3.7 10^3/uL (1.5-5.0); MEAN CORPUSCULAR HEMOGLOBIN 26.4 pg (27.0-33.0); MEAN CORPUSCULAR HGB CONC 31.4 g/dl (32.0-36.5); MEAN CORPUSCULAR VOLUME 84.2 fl (80.0-96.0); MONO # 0.7 10^3/uL (0.0-0.8); MONO % 4.5 % (2.0-8.0); NEUTROPHILS # 10.9 10^3/uL (1.5-8.5); NEUTROPHILS % 67.7 % (36.0-66.0); PLATELET COUNT, AUTOMATED 418 10^3/uL (150-450); RED BLOOD COUNT 3.67 10^6/uL (4.30-6.10); WHITE BLOOD COUNT 16.1 10^3/uL (4.0-10.0)
[2020-07-15 05:55] LABS: CALCIUM LEVEL 7.6 MG/DL (8.5-10.1); CREATININE FOR GFR 4.05 MG/DL (0.70-1.30); GLOMERULAR FILTRATION RATE 16.4 (>56); POTASSIUM SERUM 4.2 MEQ/L (3.5-5.1)
[2020-07-15 06:00] VITALS: BP 101/58
[2020-07-15] MEDS ORDERED: LOPERAMIDE 2 MG CAPLET PO PRN (09:40)
--- NOTE | 2020-07-15 09:53 | IPNPDOC ---
Subjective Date Seen The patient was seen on 07/15/20. Subjective Chief Complaint/HPI Again started having watery diarrhea since yesterday. Patient reports this happened 2 weeka ago also when he was worked up for c diff and other infections but everything came back negative. will resent c diff here but i think this is likely related to antibiotics. He reports his bottom is sore and feels raw. He reported that he lay in liquids stools from 11 pm to 3 am till anyone cleaned him. He was very upset about this. Objective Physical Examination General Exam: Positive: Alert, Cooperative, No Acute Distress Eye Exam: Positive: Conjunctiva & lids normal, EOMI Neck Exam: Positive: Supple; Negative: JVD, thyromegaly Chest Exam: Positive: Clear to auscultation, Normal air movement Heart Exam: Positive: Rate Normal, Regular Rhythm, Normal S1, Normal S2, Murmurs (, systolic murmur present); Negative: Rubs Abdomen Exam: Positive: Normal bowel sounds, Soft, Other (suprapubic catheter); Negative: Tenderness, Hepatospenomegaly Extremity Exam: Positive: Other (, left AKA) Skin Exam: Positive: Breakdown (in the abdominal wall), Other skin issue (skin on the back and buttocks are red but not open) Neuro Exam: Positive: Normal Speech Assessment /Plan Assessment 54-year-old bedbound male/ abdiel lift, with past medical history of multiple sclerosis, paraplegia, neurogenic bladder with suprapubic catheter, left AKA in 2019 due to Left foot spreading infection and peripheral vascular disease, ESRD from 2020, on peritoneal dialysis, with chronic abdominal wound, presented to the ED because he noticed that his PD fluid bag this morning was cloudy. . He reported that last night he had a little bit of upper abdominal pain especially when he was gagging and coughing. However, he thought it was just muscle spasm from his coughing so he did not pay any attention. He went to bed with his cycler on and this morning he he saw his dialysate bags to be cloudy. He called his telecom sales consultant and was instructed to come to the emergency room. . He also complained of intractable diarrhea as per ED nurses saw him he had about 4 bowel movements in 20 minutes. On further questioning, patient explained that he was constipated yesterday, so he took a bunch of laxative pills and since then he started the diarrhea and it wouldn't stop. On first arrival to the ED, patient was very dirty and soiled in stool. His groin is red and excoriated. The skin around the suprapubic catheter site is raw with a small ulcer on one side. Evaluation of the PD fluid showed that time. WBC count was very high, so he was diagnosed with the PD peritonitis and admitted to the hospital. His UA was also very dirty catheter related UTi vs colonization. Diarrhea likely antibiotic related but will rule out c diff imodium This is likely causing the elevation in the WBCs. No fever or chills, no a bdominal pain. PD peritonitis Patient has been ordered. Gentamicin and vancomycin intraperitoneally by nephrology Continue PD exchanges as per nephrology PD cell count now < 100 PD fluid Acinetobacter on Cefepime Chronic indwelling Catheter related UTI Urine culture pseudomonas cefepime. Fluid overload/CHF Intermittent episodes of wheezing, coughing and sob and vomiting likely due to fluid overload PD exchanges have been adjusted to get neg balance albuterol prn. Echo shows EF of 60% with mild diastolic dysfunction. Mild aortic stenosis, mild mitral regurgitation. Has ventricular pacemaker leads Intermitted nausea and dry heaves. gastric emptying study shows gastroparesis. Only 30% of the food moves in 2 hours. Discussed with patient dietary changes DM with neuropathy Does not need any medications for diabetes at present Continue gabapentin. , Aspirin Poor venous access will place PICC line for now once blood cultures are negative Would benefit from a infusaport. Discussed with IR this is done as an outpatient and cannot be done while he is in the hospital. Chronic abdominal wound Follow wound care dressing recommendations as per Dr Castanon ESRD On PD There is fluid overload seen at the flanks and upper thighs and back. Now having good negative balance with change in dialysate. Multiple sclerosis, paraplegia, and right upper extremity weakness, neurogenic bladder. Bedbound/ abdiel Tizanidine prn Neurogenic bladder with suprapubic catheter Patient is on fosfomycin once a week for suppressive prophylaxis of infection will resume after iv antibiotics are finished. now on cefepime Gangrene of left foot with PAD s/p left AKA in 09/2019 at [facility]. Hyperlipidemia Statin H/o gluteal and sacral pressure ulcers in 2019 now healed Dispo : home in 24 hours. Plan/VTE VTE Prophylaxis Ordered?: Yes VS, I&O, 24H, Shonna Vital Signs/I&O Vital Signs Date Time Temp Pulse Resp B/P (MAP) Pulse Ox O2 Delivery O2 Flow Rate FiO2 07/15/20 06:00 98.1 97 18 101/58 (72) 97 Room Air I&O- Last 24 Hours up to 6 AM 07/15/20 06:00 Intake Total 53298 ml Output Total 92865 ml Balance -2470 ml Laboratory Data 24H LABS Laboratory Tests 2 07/15/20 05:15: Immature Granulocyte % (Auto) 0.6, Neutrophils (%) (Auto) 67.7H, Lymphocytes (%) (Auto) 23.0L, Monocytes (%) (Auto) 4.5, Eosinophils (%) (Auto) 3.5H, Basophils (%) (Auto) 0.7, Neutrophils # (Auto) 10.9H, Lymphocytes # (Auto) 3.7, Monocytes # (Auto) 0.7, Eosinophils # (Auto) 0.6H, Basophils # (Auto) 0.1, Nucleated Red Blood Cells % (auto) 0.0, Anion Gap 6L, Glomerular Filtration Rate 16.4L, Calcium Level 7.6L CBC/BMP Laboratory Tests 07/15/20 05:15 Microbiology Microbiology 07/08/20 Urine Culture - Final, Complete Pseudomonas Aeruginosa Corynebacterium Species 07/08/20 Gram Stain - Final, Complete 07/08/20 Body Fluid Culture - Final, Complete Acinetobacter Baumannii Comple 07/08/20 Blood Culture - Final, Complete NO GROWTH AFTER 5 DAYS 07/08/20 Blood Culture - Final, Complete NO GROWTH AFTER 5 DAYS 07/08/20 Respiratory Virus Panel (PCR) ([facility]) - Final, Complete 07/08/20 Gram Stain - Final, Complete 07/08/20 Body Fluid Culture - Final, Complete Acinetobacter Baumannii ROSE Dan MD July 15, 2020 09:42
[2020-07-15] MEDS: ASPIRIN 81MG ENTERIC TABLET PO SCH (10:49)
[2020-07-15] MEDS: POTASSIUM CHLORIDE 10 MEQ SR TABLET PO SCH ×2 (10:50→22:13)
[2020-07-15] MEDS ORDERED: CEFEPIME HCL 1 GM in D5W MINI-BAG PLUS 50 ML IV SCH (11:00)
[2020-07-15 12:22] LABS: CLOSTRIDIUM DIFFICILE PCR NEGATIVE (NEGATIVE)
[2020-07-15 14:00] VITALS: BP 100/58
--- NOTE | 2020-07-15 18:29 | IPN ---
PROGRESS NOTE DATE: 07/15/2020 SUBJECTIVE: Eitan is seen and examined this morning at the bedside. He reports recurrent and multiple bowel movements. A gastrointestinal (GI) polymerase chain reaction (PCR) is pending. He was started on Lomotil today. He has been afebrile, and his peripheral edema is much improved. He denies any other complaints. Vital signs: Temperature 98.1, pulse 97, respiratory rate 18, blood pressure 101/58, saturating 97%-100% on room air. Review of intake and output shows he is net negative 2.8 liters in the past 24 hours, and he had 14 incontinent bowel movements recorded in the past 24 hours. Weight in the bed scale today was not recorded. General: Patient is seen lying flat in bed, debilitated and chronically ill appearing male who is bed bound. Extraocular muscles are intact. Tongue is moist. Neck is supple. Jugular veins are not elevated. Heart sounds are regular, S1, S2. There is mild tachycardia appreciated. There is almost no peripheral edema now, at most just trace in the dependent areas. Chest is clear to auscultation. He is comfortable on room air. There is no crackle or wheeze. Anterior auscultation only was performed. Abdomen is soft and obese. There are dressings on the left abdominal wall ulcer. There is a right lower quadrant peritoneal dialysis catheter with a clean exit site. Genitourinary: There is a suprapubic catheter. Musculoskeletal: Left above-knee amputation. There is resolution of edema of the stump, and right lower extremity now has only trace presacral dependent edema but no peripheral edema. Neurologic: Patient is bed bound with multiple sclerosis. He follows commands and is conversational, oriented times three, and is at baseline mentation. Today's laboratory studies show white count 16.1, hemoglobin 9.7, platelets 418. Sodium 134, potassium 4.2, bicarbonate 29, BUN 34, glucose 115. Clostridium (C) difficile PCR returned back presumptive negative. INPATIENT MEDICATIONS: He was started today on loperamide by the primary team. He continues on intravenous (IV) cefepime and intraperitoneal gentamicin. His remainder of medications is unchanged as compared to yesterday. PROBLEMS: 1. End-stage renal disease, on peritoneal dialysis. Patient's prior hypervolemia and peripheral edema have resolved. His daily weights have down-trended. His volume status is now euvolemic. He is on all 2.5% exchanges now, which is his home regimen. He has presumed underlying diastolic congestive heart failure (diastolic function could not be assessed on his most recent echo). 2. Acute peritonitis associated with peritoneal dialysis catheter. Patient has been treated with intraperitoneal gentamicin. His culture has grown Acinetobacter baumannii. His peritoneal cell counts had all normalized briskly after initiation of intraperitoneal antibiotic. Given that his serum WBC have risen, I will repeat a peritoneal fluid cell count tomorrow. 3. Diarrhea and leukocytosis. Patient's serum WBC have risen. Are up to 16,000 today. His C. difficile PCR came back negative. He is given loperamide by the primary team. 4. Leukocytosis. His serum WBC are rising. He is afebrile. He is hemodynamically stable. His abdominal wounds are under the care of Dr. Castanon. His C. difficile PCR returned back negative. He is being treated for a urinary tract infection (UTI), and he is also being treated for peritonitis, and both have improved, and he is on appropriate antimicrobial regimen. 5. Anemia of end-stage renal disease with iron deficiency. He got a dose of Aranesp on this admission. Hemoglobin is suboptimal but stable in the 9's. 6. Hypokalemia. His potassium levels are stable on the current potassium supplementation.
[2020-07-15 22:00] VITALS: BP 101/58
[2020-07-15] MEDS: ATORVASTATIN 10 MG TAB PO SCH (22:13)
[2020-07-15] MEDS: GENTAMICIN SULF 80MG/2ML VIAL IP SCH (22:13)
[2020-07-16 06:00] VITALS: BP 108/56
[2020-07-16 06:30] LABS: HEMATOCRIT 30.2 % (42.0-52.0); HEMOGLOBIN 9.6 g/dl (13.5-17.5); MEAN CORPUSCULAR HEMOGLOBIN 26.7 pg (27.0-33.0); MEAN CORPUSCULAR HGB CONC 31.8 g/dl (32.0-36.5); MEAN CORPUSCULAR VOLUME 84.1 fl (80.0-96.0); PLATELET COUNT, AUTOMATED 404 10^3/uL (150-450); RED BLOOD COUNT 3.59 10^6/uL (4.30-6.10); WHITE BLOOD COUNT 15.8 10^3/uL (4.0-10.0)
[2020-07-16 07:00] LABS: CALCIUM LEVEL 7.6 MG/DL (8.5-10.1); CREATININE FOR GFR 4.14 MG/DL (0.70-1.30); POTASSIUM SERUM 4.7 MEQ/L (3.5-5.1)
[2020-07-16] MEDS: SODIUM CHLORIDE 0.9% INJ 10 ML SYR IV SCH (07:34)
[2020-07-16] MEDS: POTASSIUM CHLORIDE 10 MEQ SR TABLET PO SCH ×2 (08:17→08:18)
[2020-07-16] MEDS: ASPIRIN 81MG ENTERIC TABLET PO SCH (08:17)
[2020-07-16] MEDS ORDERED: CEFEPIME HCL 1 GM in D5W MINI-BAG PLUS 50 ML IV SCH (09:00)
[2020-07-16] MEDS ORDERED: LEVO250T12 PO (10:46)
[2020-07-16] MEDS ORDERED: PROAAER10 INH (11:48)
--- NOTE | 2020-07-16 12:18 | DS.PDOC ---
Discharge Summary General Date of Admission July 08, 2020 at 16:52 Date of Discharge 07/16/20 Discharge Summary PROCEDURES PERFORMED DURING STAY: [None]. DISCHARGE DIAGNOSES: Peritoneal dialysis catheter related peritonitis Chronic suprapubic catheter related urinary tract infection Chronic abdominal wall wound CHF with preserved EF with exacerbation Intermittent watery diarrhea Gastroparesis ESRD on PD DM with neuropathy Multiple sclerosis, paraplegia, and right upper extremity weakness, neurogenic bladder. Gangrene of left foot with PAD s/p left AKA in 09/2019 Hyperlipidemia COMPLICATIONS/CHIEF COMPLAINT: Peritonitis Associated With Peritoneal Dialysis. HOSPITAL COURSE: 54-year-old bedbound male/ abdiel lift, with past medical history of multiple sclerosis, paraplegia, neurogenic bladder with suprapubic catheter, left AKA in 2019 due to Left foot spreading infection and peripheral vascular disease, ESRD from 2019, on peritoneal dialysis, with chronic abdominal wound, presented to the ED because he noticed that his PD fluid bag this morning was cloudy. . He reported that last night he had a little bit of upper abdominal pain especially when he was gagging and coughing. However, he thought it was just muscle spasm from his coughing so he did not pay any attention. He went to bed with his cycler on and this morning he he saw his dialysate bags to be cloudy. He called his budget specialist and was instructed to come to the emergency room. . He also complained of intractable diarrhea as per ED nurses saw him he had about 4 bowel movements in 20 minutes. On further questioning, patient explained that he was constipated so he took a bunch of laxative pills and since then he started the diarrhea and it wouldn't stop. On first arrival to the ED, patient was very dirty and soiled in stool. His groin is red and excoriated. The skin around the suprapubic catheter site is raw with a small ulcer on one side. Evaluation of the PD fluid showed that time. WBC count was very high, so he was diagnosed with the PD peritonitis and admitted to the hospital. His UA was also very dirty and was diagnosed with catheter related UTi . During hospitalization, he was having intermittent episodes of wheezing, shortness of breath, coughing and vomiting. He was noted to have large amounts of edema in his flanks and his buttocks and upper thighs. An echo was done this admission which showed preserved EF of 60-65% with diastolic dysfunction. So he was diagnosed with the diastolic CHF exacerbation. His PD exchanges were adjusted with achievement of good negative balance and improvement in his breathing. He was also having intermittent episodes of nausea and vomiting. So he had a gastric emptying study done which showed severe gastroparesis. He was also started on albuterol which seemed to help with his symptoms of wheezing and coughing. . He also had episodes of watery diarrhea which was felt to be related to either antibiotics or colon colonic disc motility from is diabetic neuropathy or multiple sclerosis which improved with Imodium. His abdominal wound was evaluated by Dr. Castanon by a telemetry medicine consult and dressing instructions were changed from Hydrofera Blue to DuoDERM. However, when we used the DuoDERM there was lots of secretions and moistness in the wound and the fluid was leaking out from around the dressing, so we went back to his previous dressing orders using Hydrofera Blue . At present he has finished his 7 day course of cefepime for his catheter related UTI and PD peritonitis. He has been transitioned to by mouth antibiotics and is getting to be discharged home. Diarrhea likely antibiotic related vs colonic dysmotility from neurological disease. No c diff imodium prn. PD peritonitis received Gentamicin and vancomycin intraperitoneally by nephrology recieved IV cefepime will dc with PO levofloxacin. Continue PD exchanges as per nephrology PD cell count now < 100 PD fluid Acinetobacter Chronic indwelling Catheter related UTI Urine culture pseudomonas cefepime finished 7 days. Diastolic CHF exacerbation Intermittent episodes of wheezing, coughing and sob and vomiting , parietal edema PD exchanges have been adjusted to get neg balance albuterol prn. Echo shows EF of 60% with mild diastolic dysfunction. Mild aortic stenosis, mild mitral regurgitation. Has ventricular pacemaker leads intermittednt wheezing and SOb ? asthma. will give albuterol prn. Gastroparesis Patient has Intermitted nausea and dry heaves. gastric emptying study shows gastroparesis. Only 30% of the food moves in 2 hours. Discussed with patient dietary changes DM with neuropathy Does not need any medications for diabetes at present Continue gabapentin. , Aspirin Poor venous access Would benefit from a infusaport. Discussed with IR this is done as an outpatient and cannot be done while he is in the hospital. Will refer to IR. Chronic abdominal wound Wound care instructions were changed by Dr. Castanon after a telemetry medicine consult during this hospitalization from Hydrofera Blue to DuoDERM. However, the wound now is again moist and draining and the DuoDERM was not working. There was fluid leaking from around the dressing, so we have gone back to his previous wound care orders with Yenny Strauss. ESRD On PD There is fluid overload seen at the flanks and upper thighs and back improving back to his usual PD exchanges. Multiple sclerosis, paraplegia, and right upper extremity weakness, neurogenic bladder. Bedbound/ abdiel Tizanidine prn Neurogenic bladder with suprapubic catheter Patient is on fosfomycin once a week for suppressive prophylaxis of infection will resume on discharge Gangrene of left foot with PAD s/p left AKA in 09/2019 at [facility]. Hyperlipidemia Statin H/o gluteal and sacral pressure ulcers in 2019 now healed DISCHARGE MEDICATIONS: Please see below. ALLERGIES: Please see below. PHYSICAL EXAMINATION ON DISCHARGE: VITAL SIGNS: Please see below. General Exam: Positive: Alert, Cooperative, No Acute Distress Eye Exam: Positive: Conjunctiva & lids normal, EOMI Neck Exam: Positive: Supple; Negative: JVD, thyromegaly Chest Exam: Positive: Clear to auscultation, Normal air movement Heart Exam: Positive: Rate Normal, Regular Rhythm, Normal S1, Normal S2, Murmurs (, systolic murmur present); Negative: Rubs Abdomen Exam: Positive: Normal bowel sounds, Soft, Other (suprapubic catheter); Negative: Tenderness, Hepatosplenomegaly Extremity Exam: Positive: Other (, left AKA) Skin Exam: Positive: Breakdown (in the abdominal wall), Other skin issue (skin on the back and buttocks are red but not open) Neuro Exam: Positive: Normal Speech LABORATORY DATA: Please see below. ACTIVITY: [As tolerated]. DIET: Small frequent meals DISCHARGE PLAN: Home DISPOSITION: . DISCHARGE INSTRUCTIONS: nephrology in [address] Castanon in 1 week Referral to IR for possible infuse a port placement DISCHARGE CONDITION: [Stable]. TIME SPENT ON DISCHARGE: 35 minutes. Vital Signs/I&Os Vital Signs Date Time Temp Pulse Resp B/P (MAP) Pulse Ox O2 Delivery O2 Flow Rate FiO2 07/16/20 06:00 97.1 97 18 108/56 (73) 100 Room Air I&O- Last 24 Hours up to 6 AM 07/16/20 06:00 Intake Total 9220 ml Output Total 9450 ml Balance -230 ml Laboratory Data Labs 24H Laboratory Tests 2 5/28/21 06:13: Nucleated Red Blood Cells % (auto) 0.0, Anion Gap 8, Glomerular Filtration Rate 16.0L, Calcium Level 7.6L CBC/BMP Laboratory Tests 07/16/20 06:13 Microbiology Microbiology 07/08/20 Urine Culture - Final, Complete Pseudomonas Aeruginosa Corynebacterium Species 07/08/20 Gram Stain - Final, Complete 07/08/20 Body Fluid Culture - Final, Complete Acinetobacter Baumannii Comple 07/08/20 Blood Culture - Final, Complete NO GROWTH AFTER 5 DAYS 07/08/20 Blood Culture - Final, Complete NO GROWTH AFTER 5 DAYS 07/08/20 Respiratory Virus Panel (PCR) (LAURA) - Final, Complete 07/08/20 Gram Stain - Final, Complete 07/08/20 Body Fluid Culture - Final, Complete Acinetobacter Baumannii Comple Discharge Medications Scheduled Ascorbic Acid (Vitamin C) 500 Mg Tablet, 500 MG PO DAILY, (Reported) Aspirin (Aspirin EC) 81 Mg Tablet.dr, 81 MG PO DAILY, (Reported) Atorvastatin Calcium (Atorvastatin Calcium) 10 Mg Tablet, 10 MG PO QHS, (Reported) Ergocalciferol (Vitamin D2) (Vitamin D2) 50,000 Units Cap, 50,000 UNITS PO QWEEK, (Reported) FRIDAYS Fosfomycin Tromethamine (Fosfomycin Tromethamine) 3 Gram Packet, 3 GM PO QWEEK, (Reported) FRIDAYS Levofloxacin (Levofloxacin) 250 Mg Tablet, 1 TAB PO DAILY Potassium Chloride (Potassium Chloride) 10 Meq Capsule.er, 20 MEQ PO BID, (Reported) Tizanidine HCl (Tizanidine HCl) 2 Mg Tablet, 1 TAB PO DAILY, (Reported) Scheduled PRN Diphenoxylate HCl/Atropine (Lomotil 2.5-0.025 mg Tablet) 1 Each Tablet, 1 TAB PO TID PRN for DIARRHEA, (Reported) Gabapentin (Gabapentin) 100 Mg Capsule, 100 MG PO TID PRN for PAIN, (Reported) Lidocaine (Lidocaine) 5% Adh..patch, 1 PATCH TOP DAILY PRN for PAIN, (Reported) APPLY TO RIGHT KNEE, RIGHT ANKLE OR BACK Nystatin (Nystatin Powder) 15 Gm Powder, 1 DOSE TOP BID PRN for REDNESS/IRRITATION, (Reported) APPLY TO GROIN Allergies Coded Allergies: latex (Verified Allergy, Intermediate, 12/18/19) heparin (Verified Allergy, Mild, 12/18/19) ROSE LUIS MD July 16, 2020 12:18
--- NOTE | 2020-07-16 15:15 | IPN ---
PROGRESS NOTE DATE: 07/16/2020 SUBJECTIVE: Mr. Mena is briefly seen today getting ready to leave the hospital with transportation. He denies any complaints. Specifically denies any shortness of breath or any trouble with his peritoneal dialysis exchanges. He reports his bowel movements have lessened with the Imodium. He is being discharged on levofloxacin. OBJECTIVE: VITAL SIGNS: Temperature 97.1, pulse 97, respiratory rate 18, blood pressure 108/56, saturating 100% on room air. Review I&O yesterday shows negative 430. Weight on the bed scale today is 96.6 kg. GENERAL: The patient is seeing lying in bed getting ready to leave the hospital. Chronically ill-appearing, bed bound, and Guille lift dependent. HEENT: Extraocular muscles are intact. Tongue is moist. NECK: Supple. Jugular veins are not elevated. HEART: Sounds are mildly tachycardic, S1, S2. There is trace dependent edema at the hip and the abdominal flanks. LUNGS: Clear to auscultation bilaterally. Anterior auscultation only. No crackle or rale. ABDOMEN: Soft. There is PD fluid in situ. PD catheter exit site was not examined today. There are dressings on his left-sided abdominal wounds. Suprapubic catheter is noted. EXTREMITIES: Show left [id number] amputation. There is no edema of the right lower extremity. NEUROLOGIC: He is at his baseline mentation. He has multiple sclerosis and is bed bound. He moves his upper extremities on command. He is oriented x3. LABORATORY DATA: Hemoglobin 9.6, platelets 404,000, white count 15 down from 16 yesterday. Sodium 134, potassium 4.7, bicarbonate 27. INPATIENT MEDICATIONS: Reviewed by myself. He has completed a seven day course of IV cefepime along with intraperitoneal gentamicin. He is being discharged on oral levofloxacin. The remainder of his medications are all unchanged as compared to yesterday. PROBLEMS: 1. End-stage renal disease on peritoneal dialysis. He is well dialyzed. His electrolytes are acceptable. His volume status is reasonably controlled. He will continue with his peritoneal dialysis (PD) prescription at home and will follow-up in the peritoneal dialysis clinic. 2. Peritonitis associated with PD catheter. He received intraperitoneal gentamicin for a week. His cell counts quickly normalized. His culture had grown Acinetobacter. He is going to complete a course of oral levofloxacin now. 3. Chronic indwelling suprapubic catheter with pseudomonas urinary tract infection. He completed one week of IV cefepime. 4. Diarrhea. This has improved with Imodium. His Clostridium difficile (C. diff) came back negative. He had a positive nuclear medicine gastric emptying scan. 5. Status post exacerbation of diastolic congestive heart failure. His PD exchanges were more aggressive during this admission. We used 4.25% on a daily basis to help get fluid off. His volume status is much improved. At home, he usually uses 2.5% Dianeal. Echocardiogram was noted with mild diastolic dysfunction. 6. Anemia related to chronic inflammation, renal failure, and iron deficiency. Hemoglobin is stable and fairly close to his baseline. He received Aranesp while he was here. 7. Disposition: The patient is acceptable for discharge from my point of view with follow-up in the peritoneal dialysis clinic.
== END 2020-07-16 13:04 | disposition home health service (06) | DRG 919 ==
LOC: M ED 13:19 → EDBD 13:19 → M ED INP 16:52 → M MSPAV 18:41
PROVIDERS: ADMIT Internal Medicine Nephrology; ATTEND Internal Medicine Nephrology
PROC: 02HV33Z Insertion of Infusion Device into Superior Vena Cava, Percutaneous Approach (ICD-10-PCS; principal; 2020-07-09 14:30)
DX: T85.71XA Infection and inflammatory reaction due to peritoneal dialysis catheter, initial encounter (principal); N18.6 End stage renal disease; K65.0 Generalized (acute) peritonitis; I50.33 Acute on chronic diastolic (congestive) heart failure; G82.20 Paraplegia, unspecified; I13.2 Hypertensive heart and chronic kidney disease with heart failure and with stage 5 chronic kidney disease, or end stage renal disease; L97.329 Non-pressure chronic ulcer of left ankle with unspecified severity; E87.1 Hypo-osmolality and hyponatremia; E46 Unspecified protein-calorie malnutrition; E11.51 Type 2 diabetes mellitus with diabetic peripheral angiopathy without gangrene; G35 Multiple sclerosis; R19.7 Diarrhea, unspecified; N31.9 Neuromuscular dysfunction of bladder, unspecified; E11.22 Type 2 diabetes mellitus with diabetic chronic kidney disease; E87.6 Hypokalemia; L98.499 Non-pressure chronic ulcer of skin of other sites with unspecified severity; T83.518A Infection and inflammatory reaction due to other urinary catheter, initial encounter; E11.40 Type 2 diabetes mellitus with diabetic neuropathy, unspecified; E11.622 Type 2 diabetes mellitus with other skin ulcer; E87.70 Fluid overload, unspecified; D63.1 Anemia in chronic kidney disease; B96.89 Other specified bacterial agents as the cause of diseases classified elsewhere; B96.5 Pseudomonas (aeruginosa) (mallei) (pseudomallei) as the cause of diseases classified elsewhere; Z99.2 Dependence on renal dialysis; Z79.82 Long term (current) use of aspirin; Z79.899 Other long term (current) drug therapy; Z88.8 Allergy status to other drugs, medicaments and biological substances; Z91.040 Latex allergy status; Z74.01 Bed confinement status; Z89.612 Acquired absence of left leg above knee; Z95.0 Presence of cardiac pacemaker; Z87.891 Personal history of nicotine dependence; Y84.6 Urinary catheterization as the cause of abnormal reaction of the patient, or of later complication, without mention of misadventure at the time of the procedure; Y84.1 Kidney dialysis as the cause of abnormal reaction of the patient, or of later complication, without mention of misadventure at the time of the procedure

== ENCOUNTER 2020-08-09 14:53 | Inpatient (IN) | payer MEDICARE, MEDICAID ==
[~2020-08-09] VITALS: Ht 180.3 cm; Wt 106.0 kg
[~2020-08-09 14:53] MED LIST changes: +ERGO500029 PO; +LEVO250T12 PO; +NYST1POW9 TOP; +PROAAER10 INH; +TIZA2TA PO; -VITA50005 PO
--- NOTE | 2020-08-09 16:25 | REP ---
INDICATION: dyrusia. COMPARISON: Comparison chest x-ray July 08, 2020.. TECHNIQUE: Semi-erect AP portable chest x-ray. FINDINGS: Dual lead pacemaker is seen in the right heart view of the left side. There is mild linear platelike atelectasis in the right base. The pleural angles are sharp. No infiltrate is seen. Heart is not felt to be enlarged. Pulmonary vasculature is not increased. IMPRESSION: Pacemaker in place. Platelike atelectasis right base. <Electronically signed by Felipe Powers > 08/09/20 [id number]
[2020-08-09 17:00] LABS: BASO # 0.1 10^3/uL (0.0-0.2); BASO % 0.4 % (0.0-1.0); EOS # 0.2 10^3/uL (0.0-0.5); EOS % 1.2 % (0.0-3.0); HEMATOCRIT 34.8 % (42.0-52.0); LYMPH # 2.7 10^3/uL (1.5-5.0); LYMPH % 13.7 % (24.0-44.0); MEAN CORPUSCULAR HEMOGLOBIN 25.7 pg (27.0-33.0); MEAN CORPUSCULAR HGB CONC 31.6 g/dl (32.0-36.5); MEAN CORPUSCULAR VOLUME 81.3 fl (80.0-96.0); MONO # 0.8 10^3/uL (0.0-0.8); MONO % 3.9 % (2.0-8.0); NEUTROPHILS # 15.8 10^3/uL (1.5-8.5); NEUTROPHILS % 80.1 % (36.0-66.0); PLATELET COUNT, AUTOMATED 427 10^3/uL (150-450); RED BLOOD COUNT 4.28 10^6/uL (4.30-6.10); WHITE BLOOD COUNT 19.7 10^3/uL (4.0-10.0)
[2020-08-09 17:31] LABS: ALBUMIN 1.7 GM/DL (3.2-5.2); BILIRUBIN,DIRECT 0.1 MG/DL (0.0-0.2); BILIRUBIN,TOTAL 0.3 MG/DL (0.2-1.0); CALCIUM LEVEL 7.4 MG/DL (8.5-10.1); CREATININE FOR GFR 4.51 MG/DL (0.70-1.30); GLOMERULAR FILTRATION RATE 14.5 (>56); POTASSIUM SERUM 3.6 MEQ/L (3.5-5.1); TOTAL PROTEIN 6.9 GM/DL (6.4-8.2)
[2020-08-09] MEDS ORDERED: SODIUM CHLORIDE 0.9% 1000ML IV ONE (19:05)
[2020-08-09] MEDS: CEFEPIME HCL 1 GM in D5W MINI-BAG PLUS 50 ML IV SCH (19:20)
[2020-08-09 19:32] LABS: RSV AMPLIFICATION NEGATIVE (NEGATIVE)
[2020-08-09] MEDS ORDERED: MUPI2OI TOP (19:56)
[2020-08-09] MEDS ORDERED: AMOX250C3 PO (19:56)
[2020-08-09] MEDS ORDERED: NYSTATIN 100,000 UNITS/GM TOPICAL PWD 15 GM TOP PRN ×2 (20:35)
[2020-08-09] MEDS ORDERED: LIDOCAINE 5% (LIDODERM) PATCH TOP PRN (20:35)
--- NOTE | 2020-08-09 20:37 | HPEPDOC ---
[facility] Medical History & Physical Date of Admission Aug 09, 2020 Date of Service: Aug 09, 2020 Attending Physician: JUDI HANSON MD History and Physical CHIEF COMPLAINT: Dysuria HISTORY OF PRESENT ILLNESS: Mega is a pleasant 54yo male with an extensive past medical history most notable for end-stage renal disease on peritoneal dialysis with peritonitis 3 weeks ago (late June 2020), bedbound chronically and dependent on Guille lift, ultimate sclerosis with neurogenic bladder and indwelling suprapubic catheter, chronic left lower quadrant abdominal wound, left AKA (2019) as result of spreading left lower extremity infection and PVD, who presented to the [facility] ED on 08/09/2020 via EMS from his home in [facility] with a chief complaint of dysuria. Patient reports that whenever he experiences leakage from his penis he usually subsequently will develop a UTI. He began to experience said leakage late last week and called his PCP (Dr. Carter) who ordered amoxicillin 250 mg oral antibio tic. The patient was then subsequently called yesterday evening (Sunday night, 08/08) by Dr. Carter who informed him that the antibiotic would not be strong enough and that he should present to the ED as soon as possible. Of note, patient was admitted from at [facility] for peritonitis associated with his PD catheter. He received a week's worth of intraperitoneal gentamicin and his cell counts normalized. The culture from the peritoneal dialysis fluid grew Acinetobacter and he was to complete a course of oral levofloxacin as outpatient. He also did have a Pseudomonas urinary tract infection during the peritonitis admission last month for which she completed 1 week of IV cefepime. He also takes weekly fosfomycin at home as a prophylactic. He follows with [facility] (has seen all [address] providers [address] Bulmaro Gary). In the ED, patient was found to have leukocytosis with WBC of 19.7 with a left shift as well as serum sodium 132, chloride of 95, BUN 42, creatinine 4.51, calculated GFR 14.5%, ALT 10, alkaline phosphatase 119, albumin 1.7, urinalysis that was abnormal with 2+ protein/3+ blood/2+ leuk esterase/3+ urine bacteria. A urine culture is pending and 2 blood cultures were ordered and are pending. Portable chest x-ray showed a pacemaker in place and some mild right basilar atelectasis. At the time of our admission examination the in room blood pressure cuff had a reading of 86/44 with a MAP of 61 and a borderline tachycardic rate at 98 bpm. At this point, no antibiotics nor fluids have been ordered. Due to the Pseudomonas UTI grown 3 weeks ago we administered IV cefepime and a 1 L bolus with maintenance fluids to follow. Patient verbalizes in the ED that he is a full code. Patient was subsequently admitted under the care of the hospitalist service primarily for urinary tract infection. PAST MEDICAL HISTORY: Patient is bedbound and dependent on a Guille lift Multiple sclerosis with paraplegia, neurogenic bladder with an indwelling suprapubic catheter since 2017 End-stage renal disease on peritoneal dialysis since 2019; follows with [facility] and most often sees Dr. Burke Gary Chronic left lower quadrant abdominal wall wound for which she follows with Dr. Ma of wound care and developed after heparin injection Left [id number] amputation 2019 due to history of worsening left lower extremity spreading infection and peripheral vascular disease Hypertension Chronic right lateral malleolus ulcer and to right groin ulcers Diabetes mellitus history that reportedly resolved after patient lost significant amount of weight Diabetic neuropathy Patient has a pacemaker History of pressure ulcers over the ankles and buttocks which have since closed History of Jessica's gangrene Reported history of diastolic congestive heart failure (diastolic dysfunction with recent echo) PAST SURGICAL HISTORY: Right knee surgery 1987 Peritoneal dialysis catheter placement, Suprapubic catheter placement, 2017 Pacemaker placement Left [id number] amputation in September 2019 SOCIAL HISTORY: Patient lives in [facility] with his sister who is the one who oversees his peritoneal dialysis care. 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 Sadly, he is a and has 2 stepchildren. Patient is a former smoker having quit roughly 25 years ago. He smoked for 20 years. Patient only occasionally drinks alcohol Denies any illicit or IV drug use. FAMILY HISTORY: Father: at the age of 52; diagnosed with unspecified cancer, history of substance abuse Mother: at the age of 42; had unspecified heart disease as well as an unspecified cancer Patient has 4 brothers: one brother has diabetes mellitus; one brother is secondary to heart disease; one brother has a history of an unspecified heart surgery; in the fourth brother has a history of COPD, unspecified heart disease, and diabetes mellitus Patient has 2 sisters: one sister has a history of unspecified heart disease, depression, and diabetes mellitus; the other sister has history of CVA, diabetes mellitus, and unspecified heart disease ALLERGIES: Please see below. REVIEW OF SYSTEMS: CONSTITUTIONAL: Denies any recent fever, chills, night sweats, or unintentional change in weight HEENT: Reports some farsightedness but denies any diplopia or blurry vision CARDIOVASCULAR: Denies any chest pain, chest pressure, or palpitations RESPIRATORY: Reports occasional difficulty with inhalation while in muggy weather; denies any significant current dyspnea, cough, or pleuritic chest pain GASTROINTESTINAL: Denies any abdominal pain, nausea, vomiting, diarrhea, blood in stool GENITOURINARY: Reports the recent penile discharge and some burning with urination, denies any hematuria in his suprapubic catheter bag. SKIN: Reports his chronic left lower quadrant abdominal wound and right lateral malleolus wound are healing well follows with wound care every month (Dr. Castanon) Musculoskeletal: Patient is bedbound and Guille lift dependent NEUROLOGICAL: Patient has paraplegia, neurogenic bladder, and history of multiple sclerosis; he denies any lightheadedness, dizziness, clouded thinking ENDOCRINE: Denies any recent heat or cold intolerance HEMATOLOGIC: Denies any easy bleeding or bruising LYMPHATIC: Denies any recently new lumps or bumps HOME MEDICATIONS: Please see below. PHYSICAL EXAMINATION: VITAL SIGNS: Please see below GENERAL APPEARANCE: Pleasant male lying flat in hospital bed. Left AKA. There is a malodorous scent in the room smelling similar to urine. The patient is relatively unkempt. No acute distress peer HEENT: Normocephalic, atraumatic. Noninjected, anicteric sclera. PERRLA Neck: Somewhat wide. Supple. No lymphadenopathy appreciated. Chest: There is a pacemaker present in the left upper chest. CARDIOVASCULAR: Borderline tachycardic rate, regular rhythm. There is a systolic murmur appreciated. 1-2+ radial pulses bilaterally LUNGS: Due to patient's paraplegia auscultation occurred anteriorly and latera lly. There was diminished tidal volume with symmetric chest expansion. No significant adventitious breath sounds were appreciated. Breathing room air & speaking full sentences. No accessory muscle use. ABDOMEN: Obese abdomen. Nontender and nondistended. There is significant fluid pooling in the right lower quadrant with some associated overlying induration of skin. There is significant abdominal pannus erythema and yeastlike appearance. There is a suprapubic catheter in place that is draining a small amount of light yellow-colored urine. There is also a peritoneal dialysis catheter in place in the right lower quadrant of the abdomen with no surrounding erythema induration or discharge of the skin. There is a significantly sized well-healing wound over the left lower quadrant of the abdomen that is approximately 9 cm long by 4 cm tall that has Hydrofera Blue overlying it. EXTREMITIES: Patient has a left AKA. There appears to be no significant erythema, induration, or discharge from the left lower extremity stump. Hands and feet are cool to the touch. There is some swelling but no significant pitting edema of the right lower extremity. There is a bandage on the right la teral malleolus that when removed appears to be well-healing small wound approximately 3 cm long by 1 cm wide. There is a prominent tattoo over his right posterior forearm. NEUROLOGICAL: Patient has bilateral lower extremity paraplegia. No gross focal neurologic deficits otherwise are appreciated. Nondysarthric speech. PSYCHIATRIC: Pleasant mood. Appropriate appearing affect. LABORATORY DATA: Please see below. IMAGING: Portable chest x-ray, 08/09/2020- FINDINGS: Dual lead pacemaker is seen in the right heart view of the left side. There is mild linear platelike atelectasis in the right base. The pleural angles are sharp. No infiltrate is seen. Heart is not felt to be enlarged. Pulmonary vasculature is not increased. IMPRESSION: Pacemaker in place. Platelike atelectasis right base. MICROBIOLOGY: Please see below. ASSESSMENT & PLAN: This is a pleasant 54yo male w/ a very extensive PMHx most notable for multiple sclerosis with neurogenic bladder suprapubic catheter w/ Pseudomonas UTI 3 weeks ago and lower extremity paraplegia, ESRD on PD with history of peritonitis that grew Acinetobacter on admission 3 weeks ago,, bedbound and Guille lift dependent, PVD with left AKA, history of pressure ulcers and Jessica's gangrene with chronic abdominal wound, and is status post pacemaker who presented to ED on 08/09/2020 via EMS due to dysuria and upon the recommendation of his PCP. Patient was found to have an abnormal UA with a reflex urine culture pending. Patient also had significant leukocytosis with borderline hypotension and was given IV cefepime with normal saline bolus and started on maintenance fluids to follow. Nephrology has been consulted in the setting of peritoneal dialysis/ESRD/peritonitis last month. #Sepsis likely secondary to urinary tract infection -Patient upon examination for admission had heart rate of 98, WBC 19.7 with left shift, blood pressure of 86/44 (MAP of 61) and an abnormal UA in the setting of suprapubic catheter and Pseudomonas UTI 3 weeks ago -1 L normal saline bolus ordered; maintenance fluids to follow; day team spoke with the night provider to make them aware that patient may need further aggressive fluid resuscitation during the night -IV cefepime ordered; further discussed in assessment below regarding abnormal UA -LA 1.5 -Patient had initially been MedSurg but was switched to PCU with the hypotension. #Abnormal urinalysis with recent history of Pseudomonas UTI in the setting of suprapubic catheter secondary to multiple sclerosis and neurogenic bladder -Initial UA on presentation significant for 2+ protein/3+ blood/2+ leuk esterase/3+ urine bacteria -Urine culture is pending -Patient grew Pseudomonas on urine culture during admission 3 weeks ago. He received IV cefepime for a week at that time. -IV cefepime ordered again today #ESRD with PD in the setting of peritonitis 3 weeks ago -Peritoneal dialysis comprehensive fluid analysis sent for studies -Case has been discussed with on-call referral rn (Dr. Carlin Gary) and subsequent consultation has been made -Of note, patient did have Acinetobacter peritonitis related to his PD just 3 weeks ago and was treated with intraperitoneal gentamicin for a week with normalization of his cell counts relatively quickly. He was discharged home to complete a course of oral levofloxacin. -Hospitalist service sincerely appreciates the continued collaborative care and insights from the nephrology service #Hyponatremia -Patient's initial presenting serum sodium was 132 with serum glucose of 91; calculated corrected sodium is also 132 -Serum osmolality ordered -In preparation, urine osmolality with urine sodium ordered as well. -Repeat metabolic panel in the morning ordered. #Multiple sclerosis with paraplegia and neurogenic bladder with suprapubic catheter -home gabapentin continue -Patient is bedbound and Guille lift dependent. -Home tizanidine prn medication continue #Former history of diabetes with diabetic neuropathy -Apparently per records, patient no longer is diabetic after losing significant amount of weight -Home gabapentin continued -Consistent carb diet #Hyperlipidemia -Home statin continued #Chronic abdominal wound -On examination at time of admission, left lower quadrant abdominal wound was covered with Hydrofera Blue and appeared to be healing quite well upon inspection -Follows with Dr. Ma of wound care on a monthly basis #General social concerns -Patient reportedly lives with a sister who looks over his peritoneal dialysis care and also apparently gets home health, but on presentation he was quite unkempt which raised questions about consistent outpatient hygiene and quality of care. As a result PFS order has been placed. #DVT prophylaxis: Teds and sequentials of right lower extremity ordered in the setting of patient's significant heparin allergy which resulted in his current chronic left lower quadrant abdominal wound. CODE STATUS: Patient is full code Disposition: Patient will be admitted to PCU in the setting of sepsis likely secondary to urinary tract infection; expect at least 2 midnight stay Vital Signs Vital Signs Date Time Temp Pulse Resp B/P (MAP) Pulse Ox O2 Delivery O2 Flow Rate FiO2 08/09/20 15:44 96.3 79 16 119/72 (88) 97 Room Air Laboratory Data Labs 24H Laboratory Tests 2 08/09/20 16:40: Immature Granulocyte % (Auto) 0.7, Neutrophils (%) (Auto) 80.1H, Lymphocytes (%) (Auto) 13.7L, Monocytes (%) (Auto) 3.9, Eosinophils (%) (Auto) 1.2, Basophils (%) (Auto) 0.4, Neutrophils # (Auto) 15.8H, Lymphocytes # (Auto) 2.7, Monocytes # (Auto) 0.8, Eosinophils # (Auto) 0.2, Basophils # (Auto) 0.1, Nucleated Red Blood Cells % (auto) 0.0, Urine Color YELLOW, Urine Appearance TURBIDH, Urine pH 6.0, Urine Specific [place] 1.011, Urine Protein 2+H, Urine Glucose (UA) NEGATIVE, Urine Ketones NEGATIVE, Urine Blood 3+H, Urine Nitrite NEGATIVE, Urine Bilirubin NEGATIVE, Urine Urobilinogen 0.2, Urine Leukocyte Esterase 2+H, Urine WBC (Auto) TNTCH, Urine RBC (Auto) 26H, Urine Hyaline Casts (Auto) 0, Urine Bacteria (Auto) 3+H, Urine Squamous Epithelial Cells 0, Urine Sperm (Auto) , Anion Gap 8, Glomerular Filtration Rate 14.5L, Lactic Acid Level 1.5, Calcium Level 7.4L, Total Bilirubin 0.3, Direct Bilirubin 0.1, Aspartate Amino Transf (AST/SGOT) 18, Alanine Aminotransferase (ALT/SGPT) 10L, Alkaline Phosphatase 119H, Total Protein 6.9, Albumin 1.7L, Albumin/Globulin Ratio 0.3, Lipase 58L 08/09/20 17:49: Coronavirus (COVID-19)(PCR) NEGATIVE, Influenza Type A (RT-PCR) NEGATIVE, Influenza Type B (RT-PCR) NEGATIVE, Respiratory Syncytial Virus (PCR) NEGATIVE CBC/BMP Laboratory Tests 08/09/20 16:40 Microbiology Microbiology 08/09/20 Urine Culture, Received Pending 08/09/20 Blood Culture, Received Pending Home Medications Scheduled Amoxicillin (Amoxicillin) 250 Mg Capsule, 250 MG PO DAILY Ascorbic Acid (Vitamin C) 500 Mg Tablet, 500 MG PO DAILY Aspirin (Aspirin EC) 81 Mg Tablet.dr, 81 MG PO DAILY Atorvastatin Calcium (Atorvastatin Calcium) 10 Mg Tablet, 10 MG PO QHS Ergocalciferol (Vitamin D2) (Vitamin D2) 50,000 Units Cap, 50,000 UNITS PO QWEEK FRIDAYS Fosfomycin Tromethamine (Fosfomycin Tromethamine) 3 Gram Packet, 3 GM PO QWEEK FRIDAYS Mupirocin (Mupirocin) 2 % Oint...g., 1 APPLIC TOP BID APPLY TO DIALYSIS CATH. Potassium Chloride (Potassium Chloride) 10 Meq Capsule.er, 20 MEQ PO BID Scheduled PRN Albuterol Sulfate (Proair Hfa) 8.5 Gm Hfa.aer.ad, 2 PUFF INH Q4-6HP PRN for wheezing Diphenoxylate HCl/Atropine (Lomotil 2.5-0.025 mg Tablet) 1 Each Tablet, 1 TAB PO TID PRN for DIARRHEA Gabapentin (Gabapentin) 100 Mg Capsule, 100 MG PO TID PRN for PAIN Lidocaine (Lidocaine) 5% Adh..patch, 1 PATCH TOP DAILY PRN for PAIN APPLY TO RIGHT KNEE, RIGHT ANKLE OR BACK Nystatin (Nystatin Powder) 15 Gm Powder, 1 DOSE TOP BID PRN for REDNESS/IRRITATION APPLY TO GROIN Tizanidine HCl (Tizanidine HCl) 2 Mg Tablet, 2 MG PO DAILY PRN for MUSCLE SPASMS Allergies Coded Allergies: latex (Verified Allergy, Intermediate, 12/18/19) heparin (Verified Allergy, Mild, 12/18/19) GME ATTESTATION My faculty preceptor for this patient encounter was physically present during the encounter and was fully available. All aspects of the patient interview, examination, medical decision making process, and medical care plan development were reviewed and approved by the faculty preceptor. The faculty preceptor is aware and concurs with the plan as stated in the body of this note and will attest to such by his/her cosignature. ATTENDING NOTE 54yo M with an extensive medical history most notable for ESRD on PD, MS with neurogenic bladder, bed bound with LE contraction, s/p L AKA and indwelling suprapubic catheter who was recently admitted for sepsis 2/2 MDR pseudomonas and peritonitis for which he completed full treatment and was discharged home, who now returned with dysuria and UTI diagnosed by PCP but noted to be 2/2 the same MDR pseudomonas without PO antibiotic options with resistance to quinolones and was therefore recommended for admission for IV antibiotics. Thankfully per anaylsis he does not have active peritonitis at this time. A-FIB/CHADSVASC A-FIB History Current/History of A-Fib/PAF?: No Current PO Anticoag Therapy: No JETT HEIN D.O. Aug 09, 2020 20:37 JUDI HANSON MD Aug 10, 2020 11:30
[2020-08-09] MEDS ORDERED: **NOTE PATIENT COMMENT** MISC XX SCH (21:00)
[2020-08-09] MEDS: MUPIROCIN 2% OINT 22 GM TUBE TOP SCH (21:00)
[2020-08-09] MEDS ORDERED: tiZANidine 4 MG TAB PO PRN (21:05)
[2020-08-09] MEDS ORDERED: PILL CUTTER 1 EACH XX PRN (21:10)
[2020-08-09] MEDS: NS 1,000 ML IV SCH (21:15)
[2020-08-09] MEDS: POTASSIUM CHLORIDE 10 MEQ SR TABLET PO SCH (22:19)
[2020-08-09] MEDS: GABAPENTIN 100 MG CAP PO SCH (22:19)
[2020-08-09] MEDS: ATORVASTATIN 10 MG TAB PO SCH (22:19)
[2020-08-09 22:52] LABS: OSMOLALITY URINE 283 MOSM/KG (50-1400)
[2020-08-09 23:08] LABS: SODIUM,RANDOM URINE 62 MEQ/L
--- NOTE | 2020-08-09 23:52 | CR ---
NEPHROLOGY CONSULTATION DATE: 08/09/2020 REQUESTING PHYSICIAN: Bisi Camacho REASON FOR CONSULTATION: To assist in the management of end-stage renal disease. HISTORY OF PRESENT ILLNESS: Mr. Mena is a 54-year-old male with multiple chronic comorbid conditions. He has end-stage renal disease and has been on peritoneal dialysis. He is chronically bedbound due to multiple sclerosis and has quadriplegia. He has a neurogenic bladder with indwelling suprapubic catheter and chronic UTI. He also has an abdominal wall wound on the left lower quadrant, for which he is being followed by wound clinic. Patient was treated by his primary care physician for UTI with Amoxicillin, however, the culture showed resistance to Amoxicillin. Patient was advised to come to the Emergency Room and he did. He is admitted for intravenous antibiotics. A nephrology consultation was requested and patient is seen this afternoon. There was also a concern as patient was hypotensive in the Emergency Room and I discussed with the admitting physician earlier over the phone and recommended I.V. fluid for hypertension. I have seen the patient now in the Emergency Room. PAST MEDICAL/SURGICAL HISTORY: Patient has extensive medical and surgical problems including the followin. Multiple sclerosis with paraplegia, neurogenic bladder and indwelling suprapubic catheter. 2. Left above the knee amputation due to peripheral vascular disease and gangrene. 3. Type 2 diabetes complicated with diabetic neuropathy and end-stage renal disease 4. History of chronic hypotension. 5. History of multiple pressure ulcers. 6. Abdominal wall wound on the left lower quadrant related to subcutaneous Heparin injection in the past. 7. History of Jessica's gangrene. 8. History of chronic anemia with iron deficiency and chronic GI blood loss. 9. History of diastolic congestive heart failure. 10.History of pacemaker placement. 11.History of right knee surgery. 12.History of peritoneal dialysis catheter placement. 13.History of suprapubic catheter placement. 14.History of left above the knee amputation. 15.Pacemaker placement. FAMILY HISTORY: His parents are both at an early age due to various conditions. One of four brothers has diabetes, one brother is due to heart disease, and another brother has history of heart surgery. Fourth brother has diabetes and COPD. He has two sisters; one of them has diabetes and heart problems and other sister has history of stroke and diabetes. PERSONAL AND SOCIAL HISTORY: Patient lives at home with her sister being his caregiver. He is totally dependent for care and is Guille lift dependent for transferring. Patient is a former smoker, who quit smoking 25 years ago. ALLERGIES: Patient has allergy to Heparin and latex. HOME MEDICATIONS: Include: 1. Vitamin C 500 mg daily. 2. Aspirin 81 mg daily. 3. Atorvastatin 10 mg daily. 4. Vitamin D 50,000 units once a week. 5. Fosfomycin 3 grams once a week. 6. Mupirocin 2% ointment for topical application to ulcers. 7. Potassium chloride 10 mEq two tablets b.i.d. 8. Gabapentin 100 mg t.i.d. p.r.n. for pain. 9. Lomotil one tablet t.i.d. p.r.n. diarrhea. 10.Tizanidine 2 mg p.r.n. for muscle spasm. REVIEW OF SYSTEMS: Patient is able to provide information. He denies any fevers or chills. Ears, nose, and throat are unremarkable. Cardiovascular system is significant for diastolic congestive heart failure. Respiratory system is negative for hemoptysis or pleuritic type of chest pain. GI system is significant for recurrent diarrhea. He is very intolerant of certain medications including iron, which gives him severe diarrhea. system is significant for urinary retention related to multiple sclerosis and he has a suprapubic catheter with chronic infection. He has end-stage renal disease requiring peritoneal dialysis. Musculoskeletal system is significant for prior amputation of his left leg above the knee. He has multiple ulcers including pressure ulcer on his right foot. Endocrine system is significant for diabetes and secondary hyperparathyroidism. Neurological system is significant for paraplegia due to multiple sclerosis. Hematological system is significant for chronic anemia requiring transfusions. He is intolerant of intravenous iron. Other systems are reviewed and are unremarkable. PHYSICAL EXAMINATION: VITALS: Temperature 96.3 degrees Fahrenheit, heart rate 100 per minute, respiratory rate 20 per minute, blood pressure now about 110/72 mmHg, oxygen saturation 97% on room air. Earlier his blood pressure was 87/49 mmHg. HEENT: Head is atraumatic. He is pale and chronically ill looking. Neck veins are difficult to be assessed. LUNGS: No wheezing or rales at present. HEART: Sounds are regular. There is no pericardial friction rub. ABDOMEN: Soft and peritoneal dialysis catheter is present in the right lower abdomen. On the left lower quadrant he has a large dressing where ulcer is present. EXTREMITIES: He has left above the knee amputation. Right foot has a small area of pressure ulcer. NEUROLOGIC: He is awake and at his baseline mentation. LABORATORY DATA: WBC 19.7, hemoglobin 11.0, hematocrit 34.8. Sodium 132, potassium 3.6, CO2 29, BUN 42, creatinine 4.51. Lactic acid 1.5, calcium 7.4, and albumin 1.7. Lipase level 58. Urinalysis showed turbid appearance, too numerous to count wbc and 26 rbc, 3+ bacteria. Urine culture is pending. PROBLEMS: 1. End-stage renal disease: Patient has been peritoneal dialysis dependent and we will order his peritoneal dialysis with 5 exchanges per day. Even at home he does not use the cycler. 2. Hypotension: Most likely due to dehydration and urinary infection. We will use only 1.5% dialysis solution for peritoneal dialysis. He has not been on any antihypertensive medication. He is not on Midodrine at this point. 3. Urinary tract infection: This is a chronic issue, related to chronic suprapubic catheter. His prior cultures have shown pseudomonas. I feel that Cefepime is an appropriate antibiotic with renal dosing. 4. Anemia: Patient does have chronic GI blood loss with iron deficiency anemia. Unfortunately he is very intolerant of any kind of iron, which gives him diarrhea for a long time. At this point, his anemia seems to be stable and we will continue to monitor closely. 5. Hypokalemia: Patient has chronic hypokalemia requiring potassium supplement. I will recommend to continue potassium chloride 20 mEq b.i.d., which he takes at home. 6. Nutrition: Patient has been chronically malnourished. I have encouraged him to increase his protein intake. He should not be on any restriction and I would say other than low carb, he should continue with a regular diet. Thank you for involving me in the care of Mr. Mena. I will follow him along with you.
[2020-08-10 06:47] LABS: SPEC. GRAVITY BODY FLUIDS 1.007 (NOT ESTABLISHED)
[2020-08-10 06:56] LABS: APPEARANCE, BODY FLUID CLEAR (CLEAR); PERITONEAL FL COLOR COLORLESS (COLORLESS); SOURCE, BODY FLUID PERITONEAL
[2020-08-10 07:06] LABS: SOURCE, BODY FLUID ALBUMIN PERITONEAL; SOURCE, BODY FLUID GLUCOSE PERITONEAL; SOURCE, BODY FLUID TOT PROTEIN PERITONEAL; TOTAL PROTEIN, BODY FLUID 0.2 G/DL (NOT ESTABLISHED)
[2020-08-10 07:22] LABS: BASO # 0.1 10^3/uL (0.0-0.2); BASO % 0.4 % (0.0-1.0); EOS # 0.3 10^3/uL (0.0-0.5); EOS % 1.5 % (0.0-3.0); HEMATOCRIT 30.4 % (42.0-52.0); HEMOGLOBIN 9.9 g/dl (13.5-17.5); LYMPH # 2.9 10^3/uL (1.5-5.0); LYMPH % 15.6 % (24.0-44.0); MEAN CORPUSCULAR HEMOGLOBIN 26.5 pg (27.0-33.0); MEAN CORPUSCULAR HGB CONC 32.6 g/dl (32.0-36.5); MEAN CORPUSCULAR VOLUME 81.3 fl (80.0-96.0); MONO # 0.7 10^3/uL (0.0-0.8); MONO % 3.9 % (2.0-8.0); NEUTROPHILS # 14.7 10^3/uL (1.5-8.5); NEUTROPHILS % 78.1 % (36.0-66.0); PLATELET COUNT, AUTOMATED 363 10^3/uL (150-450); RED BLOOD COUNT 3.74 10^6/uL (4.30-6.10); WHITE BLOOD COUNT 18.8 10^3/uL (4.0-10.0)
[2020-08-10 07:55] LABS: ALBUMIN 1.4 GM/DL (3.2-5.2); BILIRUBIN,TOTAL 0.2 MG/DL (0.2-1.0); CALCIUM LEVEL 7.3 MG/DL (8.5-10.1); CREATININE FOR GFR 4.59 MG/DL (0.70-1.30); GLOMERULAR FILTRATION RATE 14.2 (>56); POTASSIUM SERUM 3.8 MEQ/L (3.5-5.1); TOTAL PROTEIN 5.9 GM/DL (6.4-8.2)
[2020-08-10 08:00] VITALS: BP 106/53
[2020-08-10] MEDS: NS 1,000 ML IV SCH ×2 (08:52→20:30)
[2020-08-10] MEDS: GABAPENTIN 100 MG CAP PO SCH ×3 (08:52→21:00)
[2020-08-10] MEDS: POTASSIUM CHLORIDE 10 MEQ SR TABLET PO SCH ×2 (08:52→21:11)
[2020-08-10] MEDS: ASPIRIN 81MG ENTERIC TABLET PO SCH (08:52)
[2020-08-10] MEDS: ASCORBIC ACID 500 MG TAB PO SCH (08:52)
[2020-08-10] MEDS: MUPIROCIN 2% OINT 22 GM TUBE TOP SCH ×2 (08:53→21:11)
[2020-08-10 09:10] VITALS: BP 123/62
--- NOTE | 2020-08-10 11:20 | IPNPDOC ---
Date Seen The patient was seen on 08/10/20. Progress Note SUBJECTIVE: Mega was seen and examined this morning while lying in his ED bed. Unfortunately, the patient was unable to be moved to the floor despite being admitted yesterday early evening and subsequently spent the entire night in the ED. He was seen by the nephrology service yesterday evening (Dr. Carlin Gary). He reports having 1 peritoneal dialysis exchange since we last evaluated him. He handled the liter bolus upon admission with no issues and has been on maintenance fluid since. He denies any overnight or current fever, chills, night sweats, chest pain, palpitations, shortness of breath, abdominal pain or discomfort associated with the PD catheter, or burning associated with the suprapubic catheter. At the time of our visit this morning, the patient was soon to be moved up to the PCU. OBJECTIVE PHYSICAL EXAMINATION: VITAL SIGNS: Please see below. GENERAL APPEARANCE: Pleasant male upright in bed finishing his breakfast. Left AKA. Malodorous (urine-like scent remains). NAD HEENT: Normocephalic, atraumatic. Noninjected, anicteric sclera. Neck: Supple and wide. No lymphadenopathy appreciated. Chest: Pacemaker present in the left upper chest. CARDIOVASCULAR: Regular rate, regular rhythm. There remains a systolic murmur. No rubs appreciated LUNGS: Due to patient's paraplegia auscultation again occurred anteriorly and laterally today. There remains a diminished tidal volume with symmetric chest expansion. No significant adventitious breath sounds appreciated. No accessory muscle use. Breathing room air. ABDOMEN: Obese abdomen. Nontender and nondistended. Abdominal pannus erythema and yeastlike appearance has improved from yesterday's exam. There remains significant fluid pooling in the right lower quadrant with some associated overlying induration of skin. Suprapubic catheter in place that is draining a small amount of light yellow-colored urine. There is also a peritoneal dialysis catheter in place in the right lower quadrant of the abdomen with no surrounding erythema induration or discharge of the skin. There remains a well-healing wound over the left lower quadrant of the abdomen that is approximately 9 cm long by 4 cm tall that has overlying Hydrofera Blue dressing. EXTREMITIES: Patient has a left AKA. There appears to be no significant erythema, induration, or discharge from the left lower extremity stump. No sign ificant pitting edema of the right lower extremity. There remains a bandage on the right lateral malleolus. Prominent tattoos over bilateral forearms. NEUROLOGICAL: Patient has bilateral lower extremity paraplegia. No gross focal neurologic deficits otherwise are appreciated. Non-dysarthric speech. PSYCHIATRIC: Pleasant mood. Appropriate appearing affect. LABORATORY DATA, IMAGING STUDIES, MICROBIOLOGY: Please see below. ASSESSMENT AND PLAN: dysuria and UTI diagnosed by PCP but noted to be 2/2 the same MDR pseudomonas without PO antibiotic options with resistance to quinolones and was therefore recommended for admission for IV antibiotics. Thankfully per anaylsis he does not have active peritonitis at this time. This is a pleasant 54yo male w/ a very extensive PMHx most notable for multiple sclerosis with neurogenic bladder suprapubic catheter w/ Pseudomonas UTI 3 weeks ago and lower extremity paraplegia, ESRD on PD with history of peritonitis that grew Acinetobacter on admission 3 weeks ago,, bedbound and Guille lift dependent, PVD with left AKA, history of pressure ulcers and Jessica's gangrene with chronic abdominal wound, and is status post pacemaker who presented to ED on 08/09/2020 via EMS due to dysuria and upon the recommendation of his PCP. Patient was found to have an abnormal UA with a reflex urine culture pending. Patient also had significant leukocytosis with borderline hypotension and was given IV cefepime with normal saline bolus and started on maintenance fluids to follow. Nephrology has been consulted in the setting of peritoneal dialysis/ESRD/peritonitis last month. #Abnormal urinalysis with recent history of Pseudomonas UTI in the setting of s uprapubic catheter secondary to multiple sclerosis and neurogenic bladder -Initial UA on presentation significant for 2+ protein/3+ blood/2+ leuk esterase/3+ urine bacteria -Patient's PCP diagnosed him with UTI over the weekend that had the same multidrug-resistant Pseudomonas (resistant to quinolones) -Urine culture remains pending -Patient grew Pseudomonas on urine culture during admission 3 weeks ago. He received IV cefepime for a week at that time. -c/w IV cefepime #ESRD with PD in the setting of peritonitis 3 weeks ago -Peritoneal dialysis comprehensive fluid analysis sent for studies; per analysis results returned this morning, there does not appear to be active peritonitis at this time -Patient is scheduled for 5 exchanges of his peritoneal dialysis daily. He reports having 1 exchange since admission. -Case was discussed with on-call emergency medical service coordinator (Dr. Carlin Gary) and subsequent consultation placed -Of note, patient did have Acinetobacter peritonitis related to his PD just 3 weeks ago and was treated with intraperitoneal gentamicin for a week with normalization of his cell counts relatively quickly. He was discharged home to complete a course of oral levofloxacin. -Hospitalist service sincerely appreciates the continued collaborative care and insights from the nephrology service #Hyponatremia -Patient serum sodium remains 132 -Serum osmolality was 284 indicating pseudohyponatremia, yet glucose has not been elevated -In preparation, urine osmolality with urine sodium ordered as well. -Repeat metabolic panel in the morning ordered. #Multiple sclerosis with paraplegia and neurogenic bladder with suprapubic catheter -home gabapentin continue -Patient is bedbound and Guille lift dependent. -Home tizanidine prn medication continue #Former history of diabetes with diabetic neuropathy -Apparently per records, patient no longer is diabetic after losing significant amount of weight -Home gabapentin continued -Consistent carb diet #Hyperlipidemia -Home statin continued #Normocytic normochromic anemia -1 unit drop of hemoglobin to 9.9 this morning from 11 yesterday. Per reports, patient has a history of chronic GI blood loss with associated JONATHON but apparently is intolerant of any iron supplementation in the form of chronic diarrhea. -We will continue to monitor his hemoglobin on repeat counts. -No active sources of bleeding at this time identified. #Chronic abdominal wound -On examination at time of admission, left lower quadrant abdominal wound was covered with Hydrofera Blue and appeared to be healing quite well upon inspec tion -Follows with Dr. Ma of wound care on a monthly basis #General social concerns -Patient reportedly lives with a sister who looks over his peritoneal dialysis care and also apparently gets home health, but on presentation he was quite unkempt which raised questions about consistent outpatient hygiene and quality of care. As a result PFS order has been placed. #DVT prophylaxis: Teds and sequentials of right lower extremity ordered in the setting of patient's significant heparin allergy which resulted in his current chronic left lower quadrant abdominal wound. CODE STATUS: Patient is full code Disposition: Continue treatment of multidrug-resistant Pseudomonas UTI with IV c efepime and PD/ESRD oversight by nephrology. GME ATTESTATION My faculty preceptor for this patient encounter was physically present during the encounter and was fully available. All aspects of the patient interview, examination, medical decision making process, and medical care plan development were reviewed and approved by the faculty preceptor. The faculty preceptor is aw are and concurs with the plan as stated in the body of this note and will attest to such by his/her cosignature. ATTENDING NOTE I personally examined the patient and discussed findings, studies and plan as described by the resident physician above. VS, I&O, 24H, Fishbone Vital Signs/I&O Vital Signs Date Time Temp Pulse Resp B/P (MAP) Pulse Ox O2 Delivery O2 Flow Rate FiO2 08/10/20 09:10 97.1 78 22 123/62 (82) 97 Room Air I&O- Last 24 Hours up to 6 AM 08/10/20 06:00 Intake Total 2000 ml Output Total 1300 ml Balance 700 ml Laboratory Data 24H LABS Laboratory Tests 2 08/09/20 16:39: Urine Osmolality 283, Urine Random Sodium 62 08/09/20 16:40: Immature Granulocyte % (Auto) 0.7, Neutrophils (%) (Auto) 80.1H, Lymphocytes (%) (Auto) 13.7L, Monocytes (%) (Auto) 3.9, Eosinophils (%) (Auto) 1.2, Basophils (%) (Auto) 0.4, Neutrophils # (Auto) 15.8H, Lymphocytes # (Auto) 2.7, Monocytes # (Auto) 0.8, Eosinophils # (Auto) 0.2, Basophils # (Auto) 0.1, Nucleated Red Blood Cells % (auto) 0.0, Urine Color YELLOW, Urine Appearance TURBIDH, Urine pH 6.0, Urine Specific Watson 1.011, Urine Protein 2+H, Urine Glucose (UA) NEGATIVE, Urine Ketones NEGATIVE, Urine Blood 3+H, Urine Nitrite NEGATIVE, Urine Bilirubin NEGATIVE, Urine Urobilinogen 0.2, Urine Leukocyte Esterase 2+H, Urine WBC (Auto) TNTCH, Urine RBC (Auto) 26H, Urine Hyaline Casts (Auto) 0, Urine Bacteria (Auto) 3+H, Urine Squamous Epithelial Cells 0, Urine Sperm (Auto) , Anion Gap 8, Glomerular Filtration Rate 14.5L, Osmolality 284, Lactic Acid Level 1.5, Calcium Level 7.4L, Total Bilirubin 0.3, Direct Bilirubin 0.1, Aspartate Amino Transf (AST/SGOT) 18, Alanine Aminotransferase (ALT/SGPT) 10L, Alkaline Phosphatase 119H, Total Protein 6.9, Albumin 1.7L, Albumin/Globulin Ratio 0.3, Lipase 58L 08/09/20 17:49: Coronavirus (COVID-19)(PCR) NEGATIVE, Influenza Type A (RT-PCR) NEGATIVE, Influenza Type B (RT-PCR) NEGATIVE, Respiratory Syncytial Virus (PCR) NEGATIVE 08/10/20 06:27: Body Fluid Specific Watson 1.007, Body Fluid WBC (Auto) 30H, Body Fluid RBC (Auto) < 2, Body Fluid Mononuclear Cells % Auto 90.0H, Fluid Polymorphonuclear Cell % Auto 10.0H, Body Fluid Glucose Source PERITONEAL, Body Fluid Glucose 146, Body Fluid Protein Source PERITONEAL, Body Fluid Total Protein 0.2, Body Fluid Albumin Source PERITONEAL, Body Fluid Albumin 0.1, Peritoneal Fluid Source PERITONEAL, Peritoneal Fluid Color COLORLESS, Peritoneal Fluid Appearance CLEAR 08/10/20 07:13: Immature Granulocyte % (Auto) 0.5, Neutrophils (%) (Auto) 78.1H, Lymphocytes (%) (Auto) 15.6L, Monocytes (%) (Auto) 3.9, Eosinophils (%) (Auto) 1.5, Basophils (%) (Auto) 0.4, Neutrophils # (Auto) 14.7H, Lymphocytes # (Auto) 2.9, Monocytes # (Auto) 0.7, Eosinophils # (Auto) 0.3, Basophils # (Auto) 0.1, Nucleated Red Blood Cells % (auto) 0.0, Anion Gap 10, Glomerular Filtration Rate 14.2L, Calcium Level 7.3L, Total Bilirubin 0.2, Aspartate Amino Transf (AST/SGOT) 12, Alanine Aminotransferase (ALT/SGPT) 7L, Alkaline Phosphatase 101, Total Protein 5.9L, Albumin 1.4L, Albumin/Globulin Ratio 0.3 CBC/BMP Laboratory Tests 08/09/20 16:40 08/10/20 07:13 Microbiology Microbiology 08/10/20 Gram Stain - Final, Resulted 08/10/20 Body Fluid Culture, Resulted Pending 08/10/20 Anaerobic Culture, Resulted Pending 08/09/20 Blood Culture, Received Pending 08/09/20 Urine Culture, Received Pending 08/09/20 Blood Culture, Received Pending JETT HEIN D.O. Aug 10, 2020 11:20 JUDI HANSON MD Aug 10, 2020 23:51
[2020-08-10 12:00] VITALS: BP 114/51
[2020-08-10 16:00] VITALS: BP 131/60
--- NOTE | 2020-08-10 20:05 | IPN ---
NEPHROLOGY PROGRESS NOTE DATE: 08/10/2020 SUBJECTIVE: Mr. Mena is seen this morning at his bedside. He just got transferred to the progressive care unit a short while ago. He was in the Emergency Department most of the night. His peritoneal dialysis fluid was checked and peritonitis has been ruled out. The patient denies any nausea, vomiting, dyspnea or chest pain. OBJECTIVE: PHYSICAL EXAMINATION: VITAL SIGNS: Temperature is 97.2 degrees Fahrenheit, heart rate is 89 per minute, respiratory rate is 20 per minute, blood pressure 114/50 mm of mercury and oxygen saturation is 98% on room air. HEENT: His head is atraumatic. NECK: Supple and without JVD or thyroid enlargement. HEART: Regular. LUNGS: Clear to auscultation. ABDOMEN: Soft and abdominal wall wound on left sided is covered with dressings. His peritoneal dialysis catheter is intact with a scab at the exit site. EXTREMITIES: Without any cyanosis or clubbing. He has a prior left above the knee amputation. The pressure ulcer on the right foot is covered with a dressing. NEUROLOGICAL: He is awake and at his baseline mentation. LABORATORY STUDIES: Today's labs show a WBC count of 18.8, hemoglobin 9.9 and hematocrit 30.4. Sodium 132, potassium 3.8, BUN 43 and creatinine and 4.59. Total protein 5.9 and albumin is 1.4. PROBLEMS: 1. End-stage renal disease - The patient remains on peritoneal dialysis and we will perform five exchanges per day with 1.25% peritoneal dialysis solution. He seems well dialyzed. 2. Hypotension - blood pressure is improved and he remains on IV normal saline at present at 100 mL per hour. I will let it transfer another about 6 hours and then I will consider to stop his IV fluids as his oral intake is now much improved. 3. Urinary tract infection - The patient remains on Cefepime one gram every 24 hours. Urine culture is still pending. 4. Anemia his anemia is slightly worse and this is due to IV fluids and hemodilution. The patient is intolerant of intravenous iron and will continue with oral iron supplement at this point. In fact he is intolerant of oral iron also and not receiving any iron for now. 5. Hypokalemia - potassium level is improved and stable and will continue with oral potassium chloride 20 mEq twice daily. 6. Protein calorie malnutrition this is a chronic issue related to chronic infections and peritoneal dialysis. I am changing his diet to a high protein diet and will also add Nepro one can daily.
[2020-08-10 20:57] VITALS: BP 123/59
[2020-08-10] MEDS: CEFEPIME HCL 1 GM in D5W MINI-BAG PLUS 50 ML IV SCH (21:11)
[2020-08-10] MEDS: ATORVASTATIN 10 MG TAB PO SCH (21:11)
[2020-08-10] MEDS: ALBUTEROL 90 MCG/ACT 8GM HFA INHALER INH PRN (21:16)
[2020-08-11 04:00] VITALS: BP 118/56
[2020-08-11 06:19] LABS: BASO # 0.1 10^3/uL (0.0-0.2); BASO % 0.5 % (0.0-1.0); EOS # 0.2 10^3/uL (0.0-0.5); EOS % 1.5 % (0.0-3.0); HEMATOCRIT 28.9 % (42.0-52.0); HEMOGLOBIN 9.3 g/dl (13.5-17.5); LYMPH # 2.7 10^3/uL (1.5-5.0); LYMPH % 16.6 % (24.0-44.0); MEAN CORPUSCULAR HEMOGLOBIN 26.3 pg (27.0-33.0); MEAN CORPUSCULAR HGB CONC 32.2 g/dl (32.0-36.5); MEAN CORPUSCULAR VOLUME 81.6 fl (80.0-96.0); MONO # 0.7 10^3/uL (0.0-0.8); MONO % 4.4 % (2.0-8.0); NEUTROPHILS # 12.3 10^3/uL (1.5-8.5); NEUTROPHILS % 76.4 % (36.0-66.0); PLATELET COUNT, AUTOMATED 374 10^3/uL (150-450); RED BLOOD COUNT 3.54 10^6/uL (4.30-6.10); WHITE BLOOD COUNT 16.2 10^3/uL (4.0-10.0)
[2020-08-11 06:45] LABS: ALBUMIN 1.3 GM/DL (3.2-5.2); BILIRUBIN,TOTAL 0.1 MG/DL (0.2-1.0); CALCIUM LEVEL 7.3 MG/DL (8.5-10.1); CREATININE FOR GFR 4.4 MG/DL (0.70-1.30); GLOMERULAR FILTRATION RATE 14.9 (>56); POTASSIUM SERUM 4.6 MEQ/L (3.5-5.1); TOTAL PROTEIN 5.8 GM/DL (6.4-8.2)
[2020-08-11] MEDS: NS 1,000 ML IV SCH (07:42)
[2020-08-11 08:00] VITALS: BP 123/62
[2020-08-11] MEDS: POTASSIUM CHLORIDE 10 MEQ SR TABLET PO SCH ×2 (08:12→20:48)
[2020-08-11] MEDS: ASPIRIN 81MG ENTERIC TABLET PO SCH (08:12)
[2020-08-11] MEDS: GABAPENTIN 100 MG CAP PO SCH ×3 (08:12→20:49)
[2020-08-11] MEDS: ASCORBIC ACID 500 MG TAB PO SCH (08:12)
[2020-08-11] MEDS: MUPIROCIN 2% OINT 22 GM TUBE TOP SCH ×2 (08:13→20:50)
[2020-08-11] MEDS: ALBUTEROL 90 MCG/ACT 8GM HFA INHALER INH PRN ×3 (08:15→20:48)
[2020-08-11] MEDS ORDERED: oxyBUTYnin 5 MG TAB PO ONE ×2 (12:55→18:30)
--- NOTE | 2020-08-11 14:49 | IPN ---
[facility]: 08/11/2020 SUBJECTIVE: Mr. Mena is seen this morning on his bedside. He is feeling well and denies any new complaints. His peritoneal dialysis has been functioning well. He is currently being treated with the intravenous cefepime for urinary tract infection. His urine culture has come back positive for pseudomonas, which is sensitive to cefepime. PHYSICAL EXAMINATION: Temperature 97.1 degrees Fahrenheit, heart rate 78 per minute, respiratory rate 20 per minute, blood pressure 123/62 mmHg, oxygen saturation 97% on room air. HEAD: Atraumatic. NECK: Supple and jugular venous distention (JVD) not abnormally elevated. HEART SOUNDS: Regular. LUNGS: Clear to auscultation. ABDOMEN: Soft and peritoneal dialysis catheter is intact. Abdominal wound on left lower quadrant area is covered with dressing. EXTREMITIES: Without any cyanosis or clubbing. He has a left [id number] amputation. Right foot pressure ulcer is covered with dressing. LABORATORY DATA: Today's labs show WBC 16.2, hemoglobin 9.3, hematocrit 28.9. Sodium 133, potassium 4.6, BUN 43, creatinine 4.4, calcium level 7.3. Total protein 5.8, albumin 1.3. PROBLEMS: 1. End-stage renal disease. Patient has been on peritoneal dialysis and will continue with five exchanges per day. He is very well dialyzed. 2. Hyponatremia. Mild hyponatremia is essentially unchanged. This is related to end-stage renal disease and no intervention is needed at this point. 3. Hypokalemia. Patient has been on oral potassium supplement twice a day and potassium level is stable. 4. Protein calorie malnutrition. His albumin level is down to 1.3 today and I have switched his diet to a high protein diet. We have also added Nepro one can daily. It is important to note that he is not diabetic and does not need to be on dietary restrictions. 5. Anemia. Chronic issue related to iron deficiency and end-stage renal disease. I will give him Aranesp 100 mcg tomorrow and will continue to watch him. Unfortunately, he has been intolerant of iron supplement, which gives him severe diarrhea. 6. Urinary tract infection (UTI). Patient remains on intravenous cefepime, which is appropriate for pseudomonas.
[2020-08-11 16:00] VITALS: BP 114/51
--- NOTE | 2020-08-11 19:53 | IPNPDOC ---
Date Seen The patient was seen on 08/11/20. Progress Note SUBJECTIVE: Mega was seen and examined this morning while lying in bed. He reports no significant events overnight. He denies any current or overnight fever, chills, night sweats, chest pain, palpitations, shortness of breath, cough, abdominal pain, nausea, or vomiting. He also denies any associated discomfort related to his peritoneal dialysis catheter or suprapubic catheter. OBJECTIVE PHYSICAL EXAMINATION: VITAL SIGNS: Please see below. GENERAL: Pleasant male lying flat in bed. In no acute distress. Left [id number] amputation. HEENT: Cephalic, atraumatic. Noninjected, anicteric sclera. PERRLA. Chest: Pacemaker in place in left upper chest. CARDIOVASCULAR: Systolic murmur remains. Rate is regular, regular rhythm. No rubs are appreciated. RESPIRATORY: Decreased tidal volume with diminished breath sounds. Auscultation occurred anteriorly and laterally; there were no adventitious breath sounds appreciated. No accessory muscle use. Breathing room air and speaking full sentences. ABDOMINAL: Soft, obese abdomen. Nondistended nontender. The erythema and yea stlike appearance of abdominal pannus is improved. Significant fluid collection in the right lower quadrant with overlying indurated skin. Suprapubic catheter remains in place with a small amount of light yellow-colored collected. Peritoneal dialysis catheter remains in place in the right lower quadrant. There is bandaging over the left lower quadrant abdominal wound. EXTREMITIES: Left AKA with no induration, erythema, or skin breakdown over stump. There is trace to 1+ pitting edema of right lower extremity. Bandage in place over right lateral malleolus. Prominent tattoos over bilateral forearms. NEUROLOGICAL: Patient has bilateral lower extremity paraplegia. No gross focal neurologic deficits otherwise are appreciated. Non-dysarthric speech. PSYCHIATRIC: Pleasant mood. Appropriate appearing affect. LABORATORY DATA, IMAGING STUDIES, MICROBIOLOGY: Please see below. ASSESSMENT AND PLAN: This is a pleasant 54yo male w/ a very extensive PMHx most notable for multiple sclerosis with neurogenic bladder suprapubic catheter w/ Pseudomonas UTI 3 weeks ago and lower extremity paraplegia, ESRD on PD with history of peritonitis that grew Acinetobacter on admission 3 weeks ago,, bedbound and Guille lift dependent, PVD with left AKA, history of pressure ulcers and Jessica's gangrene with chronic abdominal wound, and is status post pacemaker who presented to ED on 08/09/2020 via EMS due to dysuria and upon the recommendation of his PCP. Patient was found to have an abnormal UA with a reflex urine culture pending. Patient also had significant leukocytosis with borderline hypotension and was given IV cefepime with normal saline bolus and started on maintenance fluids to follow. Nephrology has been consulted in the setting of peritoneal dialysis/ESRD/peritonitis last month. #Complicated urinary tract infection in setting of chronic suprapubic catheter with recent history of Pseudomonas UTI -Urine culture resulted today growing Pseudomonas; of note, patient recently had a Pseudomonas UTI on admission a few weeks ago and received 7d worth of cefepime. -We have ordered the current suprapubic catheter to be removed today and replaced with a new one in the setting of his UTI. -The chronic suprapubic catheter is due to neurogenic bladder from patient's multiple sclerosis -Initial UA on presentation significant for 2+ protein/3+ blood/2+ leuk esterase/3+ urine bacteria -Patient's PCP diagnosed him with UTI over the weekend that had the same multidrug-resistant Pseudomonas (resistant to quinolones) -Today is day #3 of cefepime administration; patient will receive a total of 7 days. #ESRD with PD in the setting of peritonitis 3 weeks ago, stable -Peritoneal dialysis fluid analysis shows no active peritonitis -Patient is scheduled for 5 exchanges of his peritoneal dialysis daily. Per nephrology, he is currently well dialyzed. -Case was discussed with on-call crime scene analyst (Dr. Carlin Gary) and subsequent consultation placed -Of note, patient did have Acinetobacter peritonitis related to his PD just 3 weeks ago and was treated with intraperitoneal gentamicin for a week with normalization of his cell counts relatively quickly. He was discharged home to complete a course of oral levofloxacin. -Hospitalist service sincerely appreciates the continued collaborative care and insights from the nephrology service #Hyponatremia, mild -Patient serum sodium this morning 133. This is essentially remained unchanged since admission. -Hyponatremia is likely associated with patient's ESRD. -Per nephrology, no intervention is warranted at this time. -Continue to follow repeat metabolic panels #Low albumin -This has been significantly decreased since admission. -Nephrology service has switched patient to a high-protein diet and added Nepro liquid nutrition daily. #Multiple sclerosis with paraplegia and neurogenic bladder with suprapubic c atheter -home gabapentin continue -Patient is bedbound and Guille lift dependent. -Home tizanidine prn medication continue #Former history of diabetes with diabetic neuropathy -Apparently per records, patient no longer is diabetic after losing significant amount of weight -Home gabapentin continued -Diet switched to high-protein diet in the setting of low albumin. #Hyperlipidemia -Home statin continued #Normocytic normochromic anemia -This is a chronic issue and associated with patient's ESRD and iron deficiency anemia. -Per nephrology, patient is relatively intolerant of all forms of iron supplementation as he develops significant diarrhea. -Patient will be administered 100 mcg of Aranesp tomorrow per nephrology documentation. -Will continue to monitor his hemoglobin on repeat counts. -No active sources of bleeding at this time identified. #Chronic abdominal wound -On examination at time of admission, left lower quadrant abdominal wound was covered with Hydrofera Blue and appeared to be healing quite well upon inspection -Follows with Dr. Castanon of wound care on a monthly basis as outpatient #General social concerns -Patient reportedly lives with a sister who looks over his peritoneal dialysis care and also apparently gets home health, but on presentation, he was quite unkempt. -This raises questions about consistent outpatient hygiene and quality of care; as a result, PFS order has been placed. #DVT prophylaxis: Teds and sequentials of right lower extremity ordered in the setting of patient's significant heparin allergy. CODE STATUS: Patient is full code Disposition: Continue treatment of multidrug-resistant Pseudomonas UTI with IV cefepime and PD/ESRD oversight by nephrology. GME ATTESTATION My faculty preceptor for this patient encounter was physically present during the encounter and was fully available. All aspects of the patient interview, examination, medical decision making process, and medical care plan development were reviewed and approved by the faculty preceptor. The faculty preceptor is aware and concurs with the plan as stated in the body of this note and will attest to such by his/her cosignature. ATTENDING NOTE I personally examined the patient and agree with the findings and plan as detailed in the resident physician note above. VS, I&O, 24H, Fishbone Vital Signs/I&O Vital Signs Date Time Temp Pulse Resp B/P (MAP) Pulse Ox O2 Delivery O2 Flow Rate FiO2 08/11/20 16:00 97.2 89 20 114/51 (72) 98 Room Air I&O- Last 24 Hours up to 6 AM 08/11/20 06:00 Intake Total 7920 ml Output Total 7550 ml Balance 370 ml Laboratory Data 24H LABS Laboratory Tests 2 08/11/20 05:56: Immature Granulocyte % (Auto) 0.6, Neutrophils (%) (Auto) 76.4H, Lymphocytes (%) (Auto) 16.6L, Monocytes (%) (Auto) 4.4, Eosinophils (%) (Auto) 1.5, Basophils (%) (Auto) 0.5, Neutrophils # (Auto) 12.3H, Lymphocytes # (Auto) 2.7, Monocytes # (Auto) 0.7, Eosinophils # (Auto) 0.2, Basophils # (Auto) 0.1, Nucleated Red Blood Cells % (auto) 0.0 08/11/20 05:57: Anion Gap 8, Glomerular Filtration Rate 14.9L, Calcium Level 7.3L, Total Bilirubin 0.1L, Aspartate Amino Transf (AST/SGOT) 19, Alanine Aminotransferase (ALT/SGPT) 9L, Alkaline Phosphatase 115, Total Protein 5.8L, Albumin 1.3L, Albumin/Globulin Ratio 0.3 CBC/BMP Laboratory Tests 08/11/20 05:56 08/11/20 05:57 Microbiology Microbiology 08/10/20 Gram Stain - Final, Resulted 08/10/20 Body Fluid Culture, Resulted Pending 08/10/20 Anaerobic Culture, Resulted Pending 08/09/20 Blood Culture - Preliminary, Resulted No growth after 24 hours . All specim... 08/09/20 Urine Culture - Final, Complete Pseudomonas Aeruginosa 08/09/20 Blood Culture - Preliminary, Resulted No Growth after 48 hours. All Specime... JETT HEIN D.O. Aug 11, 2020 19:53 JUDI HANSON MD Aug 12, 2020 07:41
[2020-08-11 20:00] VITALS: BP 149/63
[2020-08-11] MEDS: CEFEPIME HCL 1 GM in D5W MINI-BAG PLUS 50 ML IV SCH (20:48)
[2020-08-11] MEDS: ATORVASTATIN 10 MG TAB PO SCH (20:49)
[2020-08-12 04:00] VITALS: BP 125/59
[2020-08-12 06:05] LABS: BASO # 0.1 10^3/uL (0.0-0.2); BASO % 0.5 % (0.0-1.0); EOS # 0.3 10^3/uL (0.0-0.5); EOS % 2.2 % (0.0-3.0); HEMATOCRIT 28.2 % (42.0-52.0); LYMPH # 2.8 10^3/uL (1.5-5.0); LYMPH % 21.7 % (24.0-44.0); MEAN CORPUSCULAR HEMOGLOBIN 26.1 pg (27.0-33.0); MEAN CORPUSCULAR HGB CONC 31.9 g/dl (32.0-36.5); MEAN CORPUSCULAR VOLUME 81.7 fl (80.0-96.0); MONO # 0.7 10^3/uL (0.0-0.8); MONO % 5.8 % (2.0-8.0); NEUTROPHILS # 8.9 10^3/uL (1.5-8.5); NEUTROPHILS % 69.1 % (36.0-66.0); PLATELET COUNT, AUTOMATED 333 10^3/uL (150-450); RED BLOOD COUNT 3.45 10^6/uL (4.30-6.10); WHITE BLOOD COUNT 12.8 10^3/uL (4.0-10.0)
[2020-08-12 06:27] LABS: ALBUMIN 1.2 GM/DL (3.2-5.2); BILIRUBIN,TOTAL 0.2 MG/DL (0.2-1.0); CALCIUM LEVEL 7.3 MG/DL (8.5-10.1); CREATININE FOR GFR 4.13 MG/DL (0.70-1.30); GLOMERULAR FILTRATION RATE 16.1 (>56); MAGNESIUM LEVEL 1.4 MG/DL (1.8-2.4); POTASSIUM SERUM 4.7 MEQ/L (3.5-5.1)
[2020-08-12] MEDS ORDERED: MAG SULF 1GM/100ML (MAG RUN) 1 GM in IV 1 EA IV ONE (07:20)
[2020-08-12] MEDS: ALBUTEROL 90 MCG/ACT 8GM HFA INHALER INH PRN ×3 (07:46→21:15)
[2020-08-12] MEDS: POTASSIUM CHLORIDE 10 MEQ SR TABLET PO SCH ×2 (07:58→20:36)
[2020-08-12] MEDS: ASCORBIC ACID 500 MG TAB PO SCH (07:58)
[2020-08-12] MEDS: GABAPENTIN 100 MG CAP PO SCH ×3 (07:58→20:35)
[2020-08-12] MEDS: ASPIRIN 81MG ENTERIC TABLET PO SCH (07:58)
[2020-08-12 08:00] VITALS: BP 108/55
[2020-08-12] MEDS: MUPIROCIN 2% OINT 22 GM TUBE TOP SCH ×2 (08:00→20:36)
[2020-08-12] MEDS ORDERED: DARBEPOETIN 100 MCG/0.5 ML *NON-DIALYSIS* SYRINGE (J0881) SC SCH (09:00)
[2020-08-12] MEDS ORDERED: oxyBUTYnin 5 MG TAB PO ONE (09:10)
[2020-08-12 12:00] VITALS: BP 105/61
[2020-08-12] MEDS ORDERED: MAGNESIUM OXIDE 400MG TAB (MAG-OX) PO ONE (13:00)
--- NOTE | 2020-08-12 14:02 | IPN ---
NEPHROLOGY PROGRESS NOTE DATE: 08/12/2020 SUBJECTIVE: Mr. Mena is seen this morning on his bedside. He is feeling well and denies any new complaints. His peritoneal dialysis is working well. His IV fluid was stopped yesterday. He is currently being treated for pseudomonas urinary tract infection (UTI) in the setting of a suprapubic catheter. PHYSICAL EXAMINATION: Temperature 98.6 degrees Fahrenheit, heart rate 91 per minute, respiratory rate 18 per minute, blood pressure 108/55 mmHg, oxygen saturation 95% on room air. HEAD: Atraumatic. NECK: Supple and jugular venous distention (JVD) difficult to be assessed.. HEART SOUNDS: Tachycardic. LUNGS: Clear to auscultation. ABDOMEN: Soft and nontender. Peritoneal dialysis catheter is present in right lower abdomen and abdominal wall wound on the left side is covered with dressing.. EXTREMITIES: Without any cyanosis or clubbing. He has a prior left [id number] amputation. LABORATORY DATA: Today's labs show WBC 12.8, hemoglobin 9.0, hematocrit 28.2. Sodium 131, potassium 4.7, BUN 43, creatinine 4.13. Albumin is down to 1.2. PROBLEMS: 1. End-stage renal disease. Patient remains on peritoneal dialysis and we are performing 5 exchanges per day. His electrolytes are stable. 2. Hypomagnesemia. Patient did receive one dose of magnesium sulfate 1 gram today. He shall be placed on magnesium gluconate 500 mg daily. 3. Hyponatremia. Mild chronic hyponatremia is related to end-stage renal disease. No intervention is needed at present. 4. Anemia. His anemia is stable and related to end-stage renal disease and iron deficiency. 5. Urinary tract infection (UTI). Patient remains on cefepime 1 gram every 24 hours. 6. Protein calorie malnutrition. I have discussed with the nursing staff and advised him to get Nepro 1 can daily in addition to a high protein diet. Patient has not received any Nepro so far, even though it was ordered a couple of days ago.
--- NOTE | 2020-08-12 18:59 | IPNPDOC ---
Date Seen The patient was seen on 08/12/20. Progress Note SUBJECTIVE: Mega was seen and examined this morning by the hospital service while lying in bed. He reports no significant issues overnight other than occasional isolated episodes of wheezing with no associated feelings of shortness of breath. He has an as needed albuterol inhaler. Unfortunately, his suprapubic catheter has yet to be exchanged. We extensively discussed with nursing staff and patient himself directly on 08/11 as this is the source of his current urinary tract infection. We are assured that at 10 AM when he has his next PD exchange, the infective nidus catheter will be removed. Patient denies any current or overnight fever, chills, night sweats, nausea, abdominal pain, diarrhea, chest pain, palpitations, or any significant suprapubic or flank pain associated with either catheter. OBJECTIVE PHYSICAL EXAMINATION: VITAL SIGNS: Please see below. GENERAL: Pleasant obese bedbound male lying flat. No acute distress. HEENT: Normocephalic, atraumatic. Noninjected, anicteric sclera. He is actually wearing 2 sets of eyeglasses at time of exam. Oral cavity: MMM. No pharyngeal erythema or exudate appreciated. Neck, no lymphadenopathy appreciated. Supple. Trachea midline. Chest: Pacemaker remains in place in left upper chest. CARDIOVASCULAR: Regular rate, regular rhythm. Normal S1, S2. 3/6 systolic murmur present. No rubs appreciated. RESPIRATORY: Breath sounds remain diminished with decreased tidal volume. No significant adventitious breath sounds are appreciated although, again, only able to auscultate anteriorly and laterally secondary to patient's weakness and limited Mobility. ABDOMINAL: Soft, obese and nontender. Hypoactive bowel sounds throughout. There does remain poorly in the right lower abdominal quadrant with some overlying induration of skin. PD catheter in place in right lower quadrant with no surrounding erythema induration or discharge. Also suprapubic catheter in place with some mild surrounding erythema but no induration or discharge. The abdominal pannus skin folds appear much less erythematous today versus previous exams. Genitourinary: Suprapubic catheter in place with approximately 75 cc of light yellow-colored urine present EXTREMITIES: Left AKA with no induration, erythema, or skin breakdown over stump. There is trace to 1+ pitting edema of right lower extremity. Bandage in place over right lateral malleolus. Prominent tattoos over bilateral forearms. NEUROLOGICAL: Patient has bilateral lower extremity paraplegia. No gross focal neurologic deficits otherwise are appreciated. Non-dysarthric speech. PSYCHIATRIC: Pleasant mood. Appropriate appearing affect. LABORATORY DATA, IMAGING STUDIES, MICROBIOLOGY: Please see below. ASSESSMENT AND PLAN: This is a pleasant 54yo male w/ a very extensive PMHx most notable for multiple sclerosis with neurogenic bladder suprapubic catheter w/ Pseudomonas UTI 3 weeks ago and lower extremity paraplegia, ESRD on PD with history of peritonitis that grew Acinetobacter on admission 3 weeks ago,, bedbound and Guille lift dependent, PVD with left AKA, history of pressure ulcers and Jessica's gangrene with chronic abdominal wound, and is status post pacemaker who presented to ED on 08/09/20 via EMS due to dysuria and per recommendation of his PCP after o utpatient UA and UCX grew MDR Pseudomonas. Patient predominantly admitted for IV antibiotics in the setting of MDR Pseudomonas UTI with suprapubic catheter and assistance of nephrology and overseeing PD catheter care. #Complicated urinary tract infection in setting of chronic suprapubic catheter w ith recent history of Pseudomonas UTI -Urine culture on admission here grew MDR Pseudomonas similar to recent UTI during previous hospital 3 weeks ago. -Today is day 4 of 7 of intravenous cefepime. Urine culture results showed sensitivity to cefepime. This is right now the rate limiting step for d ischarge. -Patient has remained afebrile during admission and his white count has steadily decreased on a daily basis and is near within normal limits at this time (WBC 12.8 on 08/12) -Suprapubic catheter was ordered to be removed yesterday and exchanged for a new one unfortunately that was not done but will occur this morning -Patient was given 2 doses of oxybutynin yesterday in preparation for catheter removal as patient reports associated bladder spasm whenever catheter is removed #ESRD with PD in the setting of peritonitis 3 weeks ago, stable -Peritoneal dialysis fluid analysis shows no active peritonitis; final Gram stain showed no organisms/final body fluid culture showed no growth aerobically or anaerobically -Patient is scheduled for 5 exchanges of his peritoneal dialysis daily. Per nephrology, he is currently well dialyzed. -Nephrology service has been consulted and is also following along with patient daily -Of note, patient did have Acinetobacter peritonitis related to his PD just 3 weeks ago and was treated with intraperitoneal gentamicin for a week with normalization of his cell counts relatively quickly. He was discharged home to complete a course of oral levofloxacin. -Hospitalist service sincerely appreciates the continued collaborative care and insights from the nephrology service #Hypomagnesemia, mild -Likely associated with patient's ESRD as well as recent poor p.o. intake -Serum magnesium was 1.4 this morning -In the setting of serum creatinine over 1.5, 1 magnesium sulfate run ordered -Per discussion with nephrology service this morning, they will likely add oral supplementation in the form of magnesium oxide #Hyponatremia, stable -Hyponatremia is likely associated with patient's ESRD. -Patient serum sodium this morning 131. This is essentially remained unchanged since admission. -Per nephrology, no intervention is warranted at this time. -Continue to follow repeat metabolic panels #Low albumin -This has been significantly decreased since admission. -Nephrology service has switched patient to a high-protein diet and added Nepro liquid nutrition daily. #Multiple sclerosis with paraplegia and neurogenic bladder with suprapubic catheter -home gabapentin continue -Patient is bedbound and Guille lift dependent. -Home tizanidine prn medication continue #Former history of diabetes with diabetic neuropathy -Apparently per records, patient no longer is diabetic after losing significant amount of weight -Home gabapentin continued -High-protein diet in the setting of low albumin #Hyperlipidemia -Home statin continued #Normocytic normochromic anemia -This is a chronic issue and associated with patient's ESRD and iron deficiency anemia. -Per nephrology, patient is relatively intolerant of all forms of iron supplementation as he develops significant diarrhea. -Patient will be administered 100 mcg of Aranesp tomorrow per nephrology documentation. -Will continue to monitor his hemoglobin on repeat counts. -No active sources of bleeding at this time identified. #Chronic abdominal wound -On examination at time of admission, left lower quadrant abdominal wound was covered with Hydrofera Blue and appeared to be healing quite well upon inspection -Follows with Dr. Castanon of wound care on a monthly basis as outpatient #General social concerns -Patient reportedly lives with a sister who looks over his peritoneal dialysis care and also apparently gets home health, but on presentation, he was quite unkempt. -This raises questions about consistent outpatient hygiene and quality of care; as a result, PFS order has been placed. #DVT prophylaxis: Teds and sequentials of right lower extremity ordered in the setting of patient's significant heparin allergy. CODE STATUS: Patient is full code Disposition: Likely discharge on Sunday after completing 7 days of IV cefepime; in preparation for weekend discharge, arrangements placed for transportation back to home in [facility], PCP hospital follow-up appointment, and resumption of home health services. GME ATTESTATION My faculty preceptor for this patient encounter was physically present during the encounter and was fully available. All aspects of the patient interview, examination, medical decision making process, and medical care plan development were reviewed and approved by the faculty preceptor. The faculty preceptor is aware and concurs with the plan as stated in the body of this note and will attest to such by his/her cosignature. ATTENDING NOTE I personally examined the patient and discussed her findings and plan with the resident team and noted above. VS, I&O, 24H, Fishbone Vital Signs/I&O Vital Signs Date Time Temp Pulse Resp B/P (MAP) Pulse Ox O2 Delivery O2 Flow Rate FiO2 08/12/20 12:00 98.3 104 18 105/61 (76) 96 Room Air I&O- Last 24 Hours up to 6 AM 08/12/20 06:00 Intake Total 11170 ml Output Total 70441 ml Balance 2141 ml Laboratory Data 24H LABS Laboratory Tests 2 08/12/20 05:36: Immature Granulocyte % (Auto) 0.7, Neutrophils (%) (Auto) 69.1H, Lymphocytes (%) (Auto) 21.7L, Monocytes (%) (Auto) 5.8, Eosinophils (%) (Auto) 2.2, Basophils (%) (Auto) 0.5, Neutrophils # (Auto) 8.9H, Lymphocytes # (Auto) 2.8, Monocytes # (Auto) 0.7, Eosinophils # (Auto) 0.3, Basophils # (Auto) 0.1, Nucleated Red Blood Cells % (auto) 0.0, Anion Gap 8, Glomerular Filtration Rate 16.1L, Calcium Level 7.3L, Magnesium Level 1.4L, Total Bilirubin 0.2#, Aspartate Amino Transf (AST/SGOT) 17, Alanine Aminotransferase (ALT/SGPT) 10L, Alkaline Phosphatase 117, Total Protein 6.0L, Albumin 1.2L, Albumin/Globulin Ratio 0.3 CBC/BMP Laboratory Tests 08/12/20 05:36 Microbiology Microbiology 08/10/20 Gram Stain - Final, Complete 08/10/20 Body Fluid Culture - Final, Complete 08/10/20 Anaerobic Culture - Final, Complete 08/09/20 Blood Culture - Preliminary, Resulted No Growth after 48 hours. All Specime... 08/09/20 Urine Culture - Final, Complete Pseudomonas Aeruginosa 08/09/20 Blood Culture - Preliminary, Resulted No Growth after 72 hours. All specime... JETT HEIN D.O. Aug 12, 2020 18:59 JUDI HANSON MD Aug 13, 2020 08:05
[2020-08-12 20:00] VITALS: BP 121/60
[2020-08-12] MEDS: ATORVASTATIN 10 MG TAB PO SCH (20:35)
[2020-08-12] MEDS: CEFEPIME HCL 1 GM in D5W MINI-BAG PLUS 50 ML IV SCH (20:35)
[2020-08-13] MEDS: ALBUTEROL 90 MCG/ACT 8GM HFA INHALER INH PRN ×5 (03:45→23:16)
[2020-08-13 04:00] VITALS: BP 113/56
[2020-08-13 05:29] LABS: BASO # 0.1 10^3/uL (0.0-0.2); BASO % 0.4 % (0.0-1.0); EOS # 0.3 10^3/uL (0.0-0.5); HEMOGLOBIN 9.2 g/dl (13.5-17.5); LYMPH # 2.5 10^3/uL (1.5-5.0); LYMPH % 17.9 % (24.0-44.0); MEAN CORPUSCULAR HEMOGLOBIN 25.6 pg (27.0-33.0); MEAN CORPUSCULAR HGB CONC 31.7 g/dl (32.0-36.5); MEAN CORPUSCULAR VOLUME 80.8 fl (80.0-96.0); MONO # 0.8 10^3/uL (0.0-0.8); MONO % 5.7 % (2.0-8.0); NEUTROPHILS # 10.3 10^3/uL (1.5-8.5); NEUTROPHILS % 73.4 % (36.0-66.0); PLATELET COUNT, AUTOMATED 355 10^3/uL (150-450); RED BLOOD COUNT 3.59 10^6/uL (4.30-6.10)
[2020-08-13 06:02] LABS: ALBUMIN 1.4 GM/DL (3.2-5.2); BILIRUBIN,TOTAL 0.3 MG/DL (0.2-1.0); CALCIUM LEVEL 7.4 MG/DL (8.5-10.1); CREATININE FOR GFR 4.17 MG/DL (0.70-1.30); GLOMERULAR FILTRATION RATE 15.9 (>56); MAGNESIUM LEVEL 1.6 MG/DL (1.8-2.4); TOTAL PROTEIN 6.4 GM/DL (6.4-8.2)
[2020-08-13 08:00] VITALS: BP 139/66
[2020-08-13] MEDS ORDERED: MAG SULF 1GM/100ML (MAG RUN) 1 GM in IV 1 EA IV ONE (08:00)
[2020-08-13] MEDS: GABAPENTIN 100 MG CAP PO SCH ×3 (09:00→20:09)
[2020-08-13] MEDS ORDERED: VITAMIN D 50,000 UNITS CAPSULE (ERGOCALCIFEROL 1.25MG) PO SCH (09:00)
[2020-08-13] MEDS: POTASSIUM CHLORIDE 10 MEQ SR TABLET PO SCH ×2 (09:22→20:09)
[2020-08-13] MEDS: ASPIRIN 81MG ENTERIC TABLET PO SCH (09:22)
[2020-08-13] MEDS: MUPIROCIN 2% OINT 22 GM TUBE TOP SCH ×2 (09:22→20:09)
[2020-08-13] MEDS: ASCORBIC ACID 500 MG TAB PO SCH (09:22)
[2020-08-13 12:00] VITALS: BP 103/51
--- NOTE | 2020-08-13 12:32 | IPNPDOC ---
Date Seen The patient was seen on 08/13/20. Progress Note SUBJECTIVE: Mega was seen and examined this morning by the hospitalist service while lying in bed. He reports no significant issues overnight. Nursing was able to exchange out his suprapubic catheter yesterday morning and there have been no resulting issues. Patient continues to tolerate well the 5 peritoneal dialysis exchanges per day. He continues to have some isolated episodes of wheezing with no associated dyspnea and gets good improvement from the as needed albuterol inhaler. He continues to eat and drink without any issues. He denies any current or overnight fever, chills, night sweats, chest pain, palpitations, significant shortness of breath, cough, nausea, or abdominal pain. OBJECTIVE PHYSICAL EXAMINATION: VITAL SIGNS: Please see below. GENERAL: Very pleasant obese male lying relatively flat in bed. No acute distress. HEENT: Normocephalic, atraumatic. Noninjected, anicteric sclera. Oral cavity: Moist mucous membranes. No pharyngeal exudate or erythema a ppreciated. Neck: Wide. Supple. Trachea midline. No lymphadenopathy appreciated. Chest: Pacemaker in left upper chest. CARDIOVASCULAR: Borderline tachycardic rate, regular rhythm. Normal S1, S2. 3/6 systolic murmur. No rubs appreciated. RESPIRATORY: (Due to MS/paraplegia/weakness, auscultation occurred anteriorly and laterally) diminished breath sounds with decreased tidal volume. No alevism itious breath sounds were appreciated but again patient has diminished air exchange. Breathing room air. Speaking full sentences. Symmetric chest expansion. ABDOMINAL: Obese, nontender nondistended. Again there appears to be most abdominal fluid collection in the right lower quadrant and both peritoneal dialysis catheter and suprapubic catheter remain in place. There is no surrounding erythema, induration, or discharge around either catheter site. There is a large bandage in place over the left lower quadrant. EXTREMITIES: Left AKA. No erythema, wounds, or skin breakdown over stump. Th ere remains trace to 1+ pitting edema of the distal right lower extremity. Patient is wearing a teds hose over the right lower extremity. Radial pulses are relatively weak, but have been so since admission. Hands are cool to the touch. Prominent tattoos over bilateral forearms. NEUROLOGICAL: Patient has bilateral lower extremity paraplegia. No gross focal neurologic deficits otherwise are appreciated. Non-dysarthric speech. PSYCHIATRIC: Pleasant mood. Appropriate appearing affect. LABORATORY DATA, IMAGING STUDIES, MICROBIOLOGY: Please see below. ASSESSMENT AND PLAN: This is a pleasant 54yo male w/ a very extensive PMHx most notable for multiple sclerosis with neurogenic bladder suprapubic catheter w/ Pseudomonas UTI 3 weeks ago and lower extremity paraplegia, ESRD on PD with history of peritonitis that grew Acinetobacter on admission 3 weeks ago,, bedbound and Guille lift dependent, PVD with left AKA, history of pressure ulcers and Jessica's gangrene with chronic abdominal wound, and is status post pacemaker who presented to ED on 08/09/20 via EMS due to dysuria and per recommendation of his PCP after outpatient UA and UCX grew MDR Pseudomonas. Patient predominantly admitted for IV antibiotics in the setting of MDR Pseudomonas UTI with suprapubic catheter and assistance of nephrology and overseeing PD catheter care. #Complicated urinary tract infection in setting of chronic suprapubic catheter with recent history of Pseudomonas UTI, stable -Patient initially did have some burning associated with suprapubic catheter on the weekend of , but he has been relatively asymptomatic since admission on 08/09 -Urine culture here grew MDR Pseudomonas, similar to recent UTI during previous hospitalization 3 weeks ago. Of note, patient did have a UA drawn by PCP on 08/06 which also grew Pseudomonas. -Today barrett day 5 of 7 of intravenous cefepime. -Urine culture results showed sensitivity to cefepime. -This is the main reason for patient's continued admission. Due to the MDR nature of his Pseudomonas, IV antibiotics are indicated. Patient's seventh and final day of dosing will be 08/15 -Patient has remained afebrile during admission and his white count had been steadily decreasing prior to 08/13; slight increase in WBC on 08/13 (from 12.8 to 14.0) -Suprapubic catheter was exchanged out on 08/12 #ESRD with PD in the setting of peritonitis 3 weeks ago, stable -Peritoneal dialysis fluid analysis shows no active peritonitis; final Gram stain showed no organisms/final body fluid culture showed no growth aerobically or anaerobically -Patient is receiving 5 exchanges of peritoneal dialysis daily, being overseen by nephrology. Per nephrology documentation, patient has been dialyzing well. -Nephrology service has been consulted. -Of note, patient did have Acinetobacter peritonitis related to his PD just 3 weeks ago and was treated with intraperitoneal gentamicin for a week with normalization of his cell counts relatively quickly. He was discharged home to complete a course of oral levofloxacin. -Hospitalist service sincerely appreciates the continued collaborative care and insights from the nephrology service #Hypomagnesemia, mild -Likely associated with patient's ESRD as well as recent poor p.o. intake -Serum magnesium was 1.6 this morning -In the setting of serum creatinine over 1.5, 1 magnesium sulfate run ordered -Patient also received 1 mag run on 08/12 and nephrology gave a one-time dose of 400 mg po magnesium oxide on 08/12. #Hyponatremia, stable -Hyponatremia is likely associated with patient's ESRD. -Patient serum sodium this morning 132. This has essentially remained unchanged since admission. -Per nephrology, no intervention is warranted at this time. -Continue to follow repeat metabolic panels #Low albumin, slightly improved -This has been significantly decreased since admission. -Albumin on 08/13 was 1.4, which represents first increase in serum albumin (albeit a small 1) since admission. -Patient remains on high-protein diet and Nepro daily liquid nutrition supplementation ordered by nephrology. #Multiple sclerosis with paraplegia and neurogenic bladder with suprapubic c atheter -home gabapentin continue -Patient is bedbound and Guille lift dependent. -Home tizanidine prn medication continue #Former history of diabetes with diabetic neuropathy -Apparently per records, patient no longer is diabetic after losing significant amount of weight -Home gabapentin continued -High-protein diet in the setting of low albumin #Hyperlipidemia -Home statin continued #Normocytic normochromic anemia, stable -This is a chronic issue and associated with patient's ESRD and iron deficiency anemia. -Values have remained stable over the last 72 hours (hemoglobins in the 9s) -Per nephrology, patient is relatively intolerant of all forms of iron supplementation as he develops significant diarrhea. -Patient received 100 mcg of Aranesp on 08/12 from nephrology service. -Will continue to monitor his hemoglobin on repeat counts. -No active sources of bleeding at this time identified. #Chronic abdominal wound -On examination at time of admission, left lower quadrant abdominal wound was covered with Hydrofera Blue and appeared to be healing quite well upon inspectio n -Follows with Dr. Castanon of wound care on a monthly basis as outpatient #General social concerns -Patient reportedly lives with a sister who looks over his peritoneal dialysis care and also apparently gets home health, but on presentation, he was quite unkempt. -This raises questions about consistent outpatient hygiene and quality of care; as a result, PFS order has been placed. #DVT prophylaxis: Teds and sequentials of right lower extremity ordered in the setting of patient's significant heparin allergy. CODE STATUS: Patient is full code Disposition: Discharge now will be on Sunday, 08/16 as transportation for the patient back home to [facility] could not be arranged for Sunday, 08/15. Sunday will marked the seventh and final day of cefepime dosing. After completing 7 days of IV cefepime; orders for transportation back to [facility] upon discharge, PCP hospital follow-up appointment, and resumption of home health services have all been placed. GME ATTESTATION My faculty preceptor for this patient encounter was physically present during the encounter and was fully available. All aspects of the patient interview, examination, medical decision making process, and medical care plan development were reviewed and approved by the faculty preceptor. The faculty preceptor is aware and concurs with the plan as stated in the body of this note and will attest to such by his/her cosignature. ATTENDING NOTE I personally examined the patient and discussed her findings and management as detailed by the resident physician above. VS, I&O, 24H, Fishbone Vital Signs/I&O Vital Signs Date Time Temp Pulse Resp B/P (MAP) Pulse Ox O2 Delivery O2 Flow Rate FiO2 08/13/20 08:00 98.5 106 20 139/66 (90) Room Air 08/13/20 04:00 95 I&O- Last 24 Hours up to 6 AM 08/13/20 06:00 Intake Total 71307 ml Output Total 09069 ml Balance 751 ml Laboratory Data 24H LABS Laboratory Tests 2 08/13/20 05:17: Immature Granulocyte % (Auto) 0.6, Neutrophils (%) (Auto) 73.4H, Lymphocytes (%) (Auto) 17.9L, Monocytes (%) (Auto) 5.7, Eosinophils (%) (Auto) 2.0, Basophils (%) (Auto) 0.4, Neutrophils # (Auto) 10.3H, Lymphocytes # (Auto) 2.5, Monocytes # (Auto) 0.8, Eosinophils # (Auto) 0.3, Basophils # (Auto) 0.1, Nucleated Red Blood Cells % (auto) 0.0, Anion Gap 5L, Glomerular Filtration Rate 15.9L, Calcium Level 7.4L, Magnesium Level 1.6L, Total Bilirubin 0.3, Aspartate Amino Transf (AST/SGOT) 20, Alanine Aminotransferase (ALT/SGPT) 10L, Alkaline Phosphatase 113, Total Protein 6.4, Albumin 1.4L, Albumin/Globulin Ratio 0.3 CBC/BMP Laboratory Tests 08/13/20 05:17 Microbiology Microbiology 08/10/20 Gram Stain - Final, Complete 08/10/20 Body Fluid Culture - Final, Complete 08/10/20 Anaerobic Culture - Final, Complete 08/09/20 Blood Culture - Preliminary, Resulted No Growth after 72 hours. All specime... 08/09/20 Urine Culture - Final, Complete Pseudomonas Aeruginosa 08/09/20 Blood Culture - Preliminary, Resulted No Growth after 72 hours. All specime... JETT HEIN D.O. Aug 13, 2020 12:32 JUDI HANSON MD Aug 14, 2020 07:31
[2020-08-13 16:00] VITALS: BP 123/58
--- NOTE | 2020-08-13 17:20 | IPN ---
NEPHROLOGY PROGRESS NOTE DATE: 08/13/2020 SUBJECTIVE: Mr. Mena is seen this morning on his bedside. He is feeling well and denies any new complaints. He remains bedridden due to chronic paraplegia related to multiple sclerosis. His peritoneal dialysis has been functioning well. Patient reports eating well and denies any nausea or vomiting. He has no dyspnea or chest pain. His suprapubic catheter has been changed and urine has cleared significantly. He remains on intravenous cefepime for pseudomonas urinary tract infection (UTI). PHYSICAL EXAMINATION: Temperature 98.5 degrees Fahrenheit, heart rate 106 per minute, respiratory rate 20 per minute, blood pressure 139/66 mmHg, oxygen saturation 96% on room air. HEAD: Atraumatic. NECK: Supple and jugular venous distention (JVD) difficult to be assessed. HEART SOUNDS: Tachycardic. LUNGS: Clear to auscultation. ABDOMEN: Soft and nontender. Peritoneal dialysis catheter is present in right lower abdomen. Left abdominal wall area wound is covered with dressing. EXTREMITIES: Without any cyanosis or clubbing. He has a prior left [id number] amputation. NEUROLOGIC: He is at his baseline mentation. LABORATORY DATA: Today's labs show WBC 14.0, hemoglobin 9.2, hematocrit 29.0, platelets 355. Sodium 132, potassium 5.0, CO2 26, BUN 46, creatinine 4.17, glucose 100, calcium 7.4, magnesium up to 1.6. His serum albumin is 1.4 today. PROBLEMS: 1. End-stage renal disease. Patient remains on peritoneal dialysis with five exchanges per day with 2 liter bag. We are using only 1.5% solution. 2. Hyponatremia. Mild, chronic hyponatremia is essentially unchanged. 3. Hypokalemia. His potassium level is now up to 5.0 and he has been on oral potassium supplement. He has history of chronic hypokalemia. I am going to cut down his potassium dose to 10 mEq twice a day. Electrolytes have been checked on a daily basis. 4. Anemia. Patient has been started on Aranesp 100 mcg once a week and he received his first dose yesterday. Unfortunately, he is intolerant to any kind of iron supplement. 5. Hypomagnesemia. He is receiving another dose of intravenous magnesium sulfate 1 gram. I also started magnesium gluconate 500 mg daily. 6. Pseudomonas urinary tract infection (UTI) with suprapubic catheter. Patient remains on intravenous cefepime, which he has tolerated well so far.
[2020-08-13 18:50] VITALS: BP 120/56
[2020-08-13 20:00] VITALS: BP 123/56
[2020-08-13] MEDS: ATORVASTATIN 10 MG TAB PO SCH (20:09)
[2020-08-13] MEDS: CEFEPIME HCL 1 GM in D5W MINI-BAG PLUS 50 ML IV SCH (20:09)
[2020-08-14 06:00] VITALS: BP 111/57
[2020-08-14 07:51] LABS: BASO # 0.1 10^3/uL (0.0-0.2); BASO % 0.5 % (0.0-1.0); EOS # 0.3 10^3/uL (0.0-0.5); EOS % 2.3 % (0.0-3.0); HEMATOCRIT 26.6 % (42.0-52.0); HEMOGLOBIN 8.4 g/dl (13.5-17.5); LYMPH # 2.6 10^3/uL (1.5-5.0); LYMPH % 18.3 % (24.0-44.0); MEAN CORPUSCULAR HEMOGLOBIN 25.9 pg (27.0-33.0); MEAN CORPUSCULAR HGB CONC 31.6 g/dl (32.0-36.5); MEAN CORPUSCULAR VOLUME 82.1 fl (80.0-96.0); MONO # 0.8 10^3/uL (0.0-0.8); MONO % 5.7 % (2.0-8.0); NEUTROPHILS # 10.3 10^3/uL (1.5-8.5); NEUTROPHILS % 72.7 % (36.0-66.0); PLATELET COUNT, AUTOMATED 353 10^3/uL (150-450); RED BLOOD COUNT 3.24 10^6/uL (4.30-6.10); WHITE BLOOD COUNT 14.2 10^3/uL (4.0-10.0)
[2020-08-14 08:07] LABS: ALBUMIN 1.3 GM/DL (3.2-5.2); BILIRUBIN,TOTAL 0.2 MG/DL (0.2-1.0); CREATININE FOR GFR 4.17 MG/DL (0.70-1.30); GLOMERULAR FILTRATION RATE 15.9 (>56); MAGNESIUM LEVEL 1.8 MG/DL (1.8-2.4); POTASSIUM SERUM 4.4 MEQ/L (3.5-5.1); TOTAL PROTEIN 6.1 GM/DL (6.4-8.2)
[2020-08-14] MEDS: ASCORBIC ACID 500 MG TAB PO SCH (08:24)
[2020-08-14] MEDS: ASPIRIN 81MG ENTERIC TABLET PO SCH (08:24)
[2020-08-14] MEDS: GABAPENTIN 100 MG CAP PO SCH ×3 (08:25→20:14)
[2020-08-14] MEDS: POTASSIUM CHLORIDE 10 MEQ SR TABLET PO SCH ×2 (08:25→20:13)
[2020-08-14] MEDS: MUPIROCIN 2% OINT 22 GM TUBE TOP SCH ×2 (08:26→20:14)
--- NOTE | 2020-08-14 11:13 | IPNPDOC ---
Date Seen The patient was seen on 08/14/20. Progress Note SUBJECTIVE: Mega was seen and examined this morning by the hospitalist service while lying in bed. He denies any significant events overnight as well as any fever, chills, or night sweats. He is handling his peritoneal dialysis exchanges without any issues. He denies any suprapubic tenderness surrounding the catheter nor any tenderness over the right lower extremity around the peritoneal dialysis catheter. He is eating and drinking without any issues. He continues to have intermittent episodes of wheezes. Up until this morning, he denied any associated increased work of breathing or shortness of breath with these wheezing episodes but this morning did have some mild dyspnea. With each episode, his as needed albuterol has resolved his symptoms. Overall, he denies any current or overnight chest pain, palpitations, cough, pleuritic chest pain, nausea, vomiting, or abdominal pain. OBJECTIVE PHYSICAL EXAMINATION: VITAL SIGNS: Please see below. GENERAL: Very pleasant obese male lying in bed. Lower extremity plegia. No acute distress. HEENT: Normocephalic, atraumatic. Noninjected, anicteric sclera. He is actually wearing 2 sets of eyeglasses this morning. Oral cavity: MMM. No pharyngeal erythema or exudate appreciated. Neck: No lymphadenopathy appreciated. Wide and thick. Chest: Pacemaker in place in left upper chest. CARDIOVASCULAR: Regular rate, regular rhythm. 3/6 systolic murmur present. No rubs are appreciated. Normal S1, S2. Faint to radial pulses bilaterally which has been consistent since admission. RESPIRATORY: (Due to MS/weakness/paraplegia, auscultation occurred anteriorly and laterally) diminished breath sounds with decreased tidal volume but no appreciated adventitious breath sounds. Speaking full sentences. Breathing room air. ABDOMINAL: Obese, nontender and nondistended. There remains both the peritoneal dialysis catheter in place in the right lower quadrant with no surrounding erythema, induration, or discharge from skin. There is fluid accumulation in the right lower quadrant of the abdomen versus the left, but this has been consistent the entire week. Normoactive bowel sounds throughout. EXTREMITIES: Left AKA. No erythema, wounds, or skin breakdown over stump. Trace pitting edema of distal right lower extremity. Teds hose over the right lower extremity. Hands remain cool to touch bilaterally. Tattoos over bilateral forearms. Genitourinary: Suprapubic catheter remains in place with approximately 3 to 25 cc of light yellow-colored urine collected. There is no erythema, induration, or discharge of skin surrounding suprapubic catheter NEUROLOGICAL: Nondysarthric speech. No gross focal neurologic deficits appreciated other than bilateral lower extremity paraplegia. PSYCHOLOGICAL: Very pleasant mood. Affect appears appropriate. LABORATORY DATA, IMAGING STUDIES, MICROBIOLOGY: Please see below. ASSESSMENT AND PLAN: This is a pleasant 54yo male w/ a very extensive PMHx most notable for multiple sclerosis with neurogenic bladder suprapubic catheter w/ Pseudomonas UTI 3 weeks ago and lower extremity paraplegia, ESRD on PD with history of peritonitis that grew Acinetobacter on admission 3 weeks ago,, bedbound and Guille lift dependent, PVD with left AKA, history of pressure ulcers and Jessica's gangrene with chronic abdominal wound, and is status post pacemaker who presented to ED on 08/09/20 via EMS due to dysuria and per recommendation of his PCP after outpatient UA and UCX grew MDR Pseudomonas. Patient predominantly admitted for IV antibiotics in the setting of MDR Pseudomonas UTI with suprapubic catheter and assistance of nephrology and overseeing PD catheter care. #Complicated urinary tract infection in setting of chronic suprapubic catheter with recent history of Pseudomonas UTI, stable -Dysuria associated with suprapubic catheter on the weekend of , but asymptomatic since admission on 08/09 -Urine culture here grew MDR Pseudomonas, similar to recent UTI during previous hospitalization 3 weeks ago. Of note, patient did have a UA drawn by PCP on 08/06 which also grew Pseudomonas. -Today barrett day 6 of 7 of intravenous cefepime. -Urine culture results showed sensitivity to cefepime. -This is the main reason for patient's continued admission. Due to the MDR nature of his Pseudomonas, IV antibiotics are indicated. Patient's seventh and final day of dosing will be 08/15/20 -Patient has remained afebrile during admission -Leukocytosis has been improving but bumped slightly on 08/13 to 14.o ; remains around 14 (14.2) this morning -Suprapubic catheter was exchanged out on morning of 08/12 #ESRD with PD in the setting of peritonitis 3 weeks ago, stable -Peritoneal dialysis fluid analysis shows no active peritonitis; final Gram stain showed no organisms/final body fluid culture showed no growth aerobically or anaerobically -Patient is receiving 5 exchanges of peritoneal dialysis daily, being overseen by nephrology. Per nephrology documentation, patient has been dialyzing well. -24-hour peritoneal dialysis late of 10,400 from midnight to midnight -Nephrology service has been consulted. -Of note, patient did have Acinetobacter peritonitis related to his PD just 3 weeks ago and was treated with intraperitoneal gentamicin for a week with n ormalization of his cell counts relatively quickly. He was discharged home to complete a course of oral levofloxacin. -Hospitalist service sincerely appreciates the continued collaborative care and insights from the nephrology service #Hypomagnesemia, improved -Likely associated with patient's ESRD as well as recent poor p.o. intake -Serum magnesium was 1.8 this morning. -He received a one-time dose of oral magnesium oxide ordered by nephrology service on 08/12 -He is status post 1 mg magnesium sulfate runs on 08/12 and 08/13 -Continue to monitor on repeat lab studies #Hyponatremia, stable -Hyponatremia is likely associated with patient's ESRD. -Patient serum sodium this morning 133. This has essentially remained unchanged since admission. -Per nephrology, no intervention is warranted at this time. -Continue to follow repeat metabolic panels #Low albumin, unchanged -This has been significantly decreased since admission. -Albumin on 08/14 was 1.3; rl during admission was 1.2 on 08/12 -High-protein diet and Nepro daily liquid nutrition supplementation ordered by nephrology. #Multiple sclerosis with paraplegia and neurogenic bladder with suprapubic cat heter -home gabapentin continue -Patient is bedbound and Guille lift dependent. -Home tizanidine prn medication continue #Former history of diabetes with diabetic neuropathy -Apparently per records, patient no longer is diabetic after losing significant amount of weight -Home gabapentin continued -High-protein diet in the setting of low albumin #Hyperlipidemia -Home statin continued #Tachycardia, resolved -Patient had been tachycardic/borderline tachycardic since admission with no ass ociated chest pain, chest pressure, palpitations, shortness of breath, or pleuritic chest pain -This morning, heart rate dropped from 10 1-67. Patient reports no associated events with this and again denies any chest pain, chest pressure, or palpitations. -Of note, he is not on any beta blocking medications. #Normocytic normochromic anemia, slight worsening from recent baseline -This is a chronic issue and associated with patient's ESRD and iron deficiency anemia. -Hemoglobin this morning was 8.4; marking a 0.6 drop from 08/13. -Prior to that, values had remained stable over the last 72 hours (w/ Hgb in 9s) -Per nephrology, patient is relatively intolerant of all forms of iron supplementation as he develops significant resulting diarrhea. -Patient received 100 mcg of Aranesp on 08/12 from nephrology service. -This has been scheduled qwk dosing -Will continue to monitor his hemoglobin on repeat counts. -No active sources of bleeding are identified at this time. #Chronic abdominal wound -On admission examination, left lower quadrant abdominal wound was covered with Hydrofera Blue and appeared to be healing quite well upon inspection -The dressing over this wound has been changed nearly daily. Patient has no reported pain associated to the wound and has no surrounding erythema, induration, or discharge -Follows with Dr. Castanon of wound care on a monthly basis as outpatient #General social concerns -Patient reportedly lives with a sister who looks over his peritoneal dialysis care and also apparently gets home health, but on presentation, he was quite unkempt. -This raises questions about consistent outpatient hygiene and quality of c are; as a result, PFS order has been placed. #DVT prophylaxis: Teds and sequentials of right lower extremity ordered in the setting of patient's significant heparin allergy. CODE STATUS: Patient is full code Disposition: Discharge on Sunday, 08/16 as transportation for the patient back home to [facility] could not be arranged for Sunday, 08/15 when he completes his cefepime dosing. Orders for transportation back to [facility] upon discharge, PCP hospital follow-up appointment, and resumption of home health services have all been placed. GME ATTESTATION My faculty preceptor for this patient encounter was physically present during the encounter and was fully available. All aspects of the patient interview, examination, medical decision making process, and medical care plan development were reviewed and approved by the faculty preceptor. The faculty preceptor is aware and concurs with the plan as stated in the body of this note and will attest to such by his/her cosignature. ATTENDING NOTE I personally examined the patient and discussed the findings and plan as detailed above by the resident physician as above. -[facility] pseud[facility] CAUTI. VS, I&O, 24H, Fishbone Vital Signs/I&O Vital Signs Date Time Temp Pulse Resp B/P (MAP) Pulse Ox O2 Delivery O2 Flow Rate FiO2 08/14/20 06:00 97.7 67 17 111/57 (75) 93 Room Air I&O- Last 24 Hours up to 6 AM 08/14/20 06:00 Intake Total 81902 ml Output Total 30884 ml Balance 710 ml Laboratory Data 24H LABS Laboratory Tests 2 08/14/20 07:33: Immature Granulocyte % (Auto) 0.5, Neutrophils (%) (Auto) 72.7H, Lymphocytes (%) (Auto) 18.3L, Monocytes (%) (Auto) 5.7, Eosinophils (%) (Auto) 2.3, Basophils (%) (Auto) 0.5, Neutrophils # (Auto) 10.3H, Lymphocytes # (Auto) 2.6, Monocytes # (Auto) 0.8, Eosinophils # (Auto) 0.3, Basophils # (Auto) 0.1, Nucleated Red Blood Cells % (auto) 0.0, Anion Gap 5L, Glomerular Filtration Rate 15.9L, Calcium Level 8.0L, Magnesium Level 1.8, Total Bilirubin 0.2, Aspartate Amino Transf (AST/SGOT) 16, Alanine Aminotransferase (ALT/SGPT) 10L, Alkaline Phosphatase 89, Total Protein 6.1L, Albumin 1.3L, Albumin/Globulin Ratio 0.3 CBC/BMP Laboratory Tests 08/14/20 07:33 Microbiology Microbiology 08/10/20 Gram Stain - Final, Complete 08/10/20 Body Fluid Culture - Final, Complete 08/10/20 Anaerobic Culture - Final, Complete 08/09/20 Blood Culture - Preliminary, Resulted No Growth after 72 hours. All specime... 08/09/20 Urine Culture - Final, Complete Pseudomonas Aeruginosa 08/09/20 Blood Culture - Preliminary, Resulted No Growth after 72 hours. All specime... JETT HEIN D.O. Aug 14, 2020 11:13 JUDI HANSON MD Aug 14, 2020 13:00
[2020-08-14] MEDS: ALBUTEROL 90 MCG/ACT 8GM HFA INHALER INH PRN ×2 (11:33→15:07)
[2020-08-14] MEDS: LOMOTIL 2.5MG/0.025MG TABLET PO PRN (13:43)
[2020-08-14 14:00] VITALS: BP 112/60
--- NOTE | 2020-08-14 15:03 | IPN ---
NEPHROLOGY PROGRESS NOTE DATE: 08/14/2020 SUBJECTIVE: Patient was seen and examined at the bedside today morning. He is afebrile, hemodynamically stable. He continues to be on intravenous (IV) antibiotics for pseudomonas urinary tract infection (UTI). He denies any complaints at peritoneal dialysis (PD); however, he reports that he uses all 2.5% peritoneal fluid exchanges. Otherwise, he gets fluid overloaded. Currently, he is being dialyzed with 1.5% fluids. OBJECTIVE: VITAL SIGNS: Temperature 97.3 degrees Fahrenheit, blood pressure 112/60, pulse 107, respiratory rate 18, saturating 97% on room air. INTAKE AND OUTPUT: Urine output recorded as 475 mL yesterday. With peritoneal dialysis exchanges, he has actually retained 1 liter of fluid. He has had four incontinent bowel movements. Weight in the bed scale was 106.7 kg yesterday. PHYSICAL EXAMINATION: GENERAL: Patient is awake, alert, oriented times three, laying in bed, no apparent distress. HEAD AND NECK EXAM: Extraocular muscles intact. Pupils equally round and reactive to light. Mucous membranes are moist. Neck is supple. There is no jugular venous distention (JVD). CARDIOVASCULAR: S1, S2. Regular rate. 2+ edema of the right lower extremity. RESPIRATORY: Chest is clear to auscultation bilaterally. Mildly decreased breath sounds at the bases. ABDOMEN: Soft. Positive bowel sounds. Right lower quadrant peritoneal dialysis (PD) catheter is noted. There is suprapubic catheter and he has an abdominal wound in the left upper quadrant of the abdomen. MUSCULOSKELETAL: He has a left above-knee amputation. CENTRAL NERVOUS SYSTEM (MEDIA PRODUCTION OPERATOR): No focal deficit. Patient moves bilateral upper extremities. LABORATORY STUDIES: CBC showed WBC 14.2, hemoglobin 8.4, platelets 353. BMP showed sodium 133, potassium 4.4, chloride 102, bicarbonate 26, BUN47, creatinine 4.1. MICROBIOLOGY: Urine culture was positive for Pseudomonas aeruginosa. Blood cultures are negative so far. CURRENT INPATIENT MEDICATIONS: Patient's medications were all reviewed by myself. His potassium chloride dose has been changed to 10 mEq by mouth twice a day. He continues to be on cefepime. ASSESSMENT AND PLAN: 1. End-stage renal disease. Patient is not getting much ultrafiltration with 1.5% exchanges. Continue five manual exchanges, all 2 liters, but change the fluid to 2.5% solution. 2. Hyponatremia. Patient has hypervolemic hyponatremia. Peritoneal fluid is being changed. Sodium level should get better. 3. Anemia in end-stage renal disease. Patient is allergic to IV iron. He is currently getting Aranesp. If hemoglobin drops below 8, he will be given packed red blood cells (PRBC) transfusion. 4. Pseudomonas urinary tract infection. Patient is currently on cefepime. Clinically, he is feeling better.
[2020-08-14] MEDS: ATORVASTATIN 10 MG TAB PO SCH (20:13)
[2020-08-14] MEDS: CEFEPIME HCL 1 GM in D5W MINI-BAG PLUS 50 ML IV SCH (20:14)
[2020-08-14 22:00] VITALS: BP 108/59
[2020-08-15 06:00] VITALS: BP 118/62
[2020-08-15] MEDS: ASCORBIC ACID 500 MG TAB PO SCH (08:08)
[2020-08-15] MEDS: ASPIRIN 81MG ENTERIC TABLET PO SCH (08:08)
[2020-08-15] MEDS: GABAPENTIN 100 MG CAP PO SCH ×3 (08:09→20:11)
[2020-08-15] MEDS: POTASSIUM CHLORIDE 10 MEQ SR TABLET PO SCH (08:09)
[2020-08-15] MEDS: MUPIROCIN 2% OINT 22 GM TUBE TOP SCH ×2 (08:10→20:12)
[2020-08-15 08:33] LABS: BASO # 0.1 10^3/uL (0.0-0.2); BASO % 0.5 % (0.0-1.0); EOS # 0.4 10^3/uL (0.0-0.5); EOS % 3.3 % (0.0-3.0); HEMATOCRIT 30.1 % (42.0-52.0); HEMOGLOBIN 9.4 g/dl (13.5-17.5); LYMPH # 2.3 10^3/uL (1.5-5.0); MEAN CORPUSCULAR HGB CONC 31.2 g/dl (32.0-36.5); MEAN CORPUSCULAR VOLUME 83.1 fl (80.0-96.0); MONO # 0.6 10^3/uL (0.0-0.8); MONO % 4.3 % (2.0-8.0); NEUTROPHILS # 9.5 10^3/uL (1.5-8.5); NEUTROPHILS % 73.3 % (36.0-66.0); PLATELET COUNT, AUTOMATED 352 10^3/uL (150-450); RED BLOOD COUNT 3.62 10^6/uL (4.30-6.10); WHITE BLOOD COUNT 12.9 10^3/uL (4.0-10.0)
--- NOTE | 2020-08-15 08:41 | IPNPDOC ---
Text Note Date of Service The patient was seen on 08/15/20. NOTE SUBJECTIVE: -Doing well without any acute complaints. -Overall, he denies any current or overnight chest pain, palpitations, cough, p leuritic chest pain, nausea, vomiting, or abdominal pain. OBJECTIVE VITAL SIGNS: Please see below. GENERAL: Obese, LE plegia, no acute distress. HEENT: Normocephalic, atraumatic. Noninjected, anicteric sclera. Oral cavity: MMM. No pharyngeal erythema or exudate appreciated. Neck: No lymphadenopathy appreciated. Chest: Pacemaker in place in left upper chest, otherwise clear to auscultation, poor effort. CARDIOVASCULAR: Regular rate, regular rhythm. 3/6 systolic murmur present. No rubs are appreciated. Normal S1, S2. ABDOMINAL: Obese, nontender and nondistended. Has peritoneal dialysis catheter in place in the right lower quadrant with no surrounding erythema, induration, or discharge from insertion site. Normoactive bowel sounds throughout. EXTREMITIES: s/p Left AKA. No erythema, wounds, or skin breakdown over stump. Trace pitting edema of distal right lower extremity. Teds hose over the right lower extremity. Tattoos over bilateral forearms. Genitourinary: Suprapubic catheter remains in place with clear light yellow- colored urine collected. There is no erythema, induration, or discharge on skin surrounding suprapubic catheter NEUROLOGICAL: Clear speech. No gross focal neurologic deficits appreciated other than bilateral lower extremity paraplegia that is his baseline. 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 Patient predominantly admitted for IV antibiotics in the setting of MDR Pseudomonas UTI with suprapubic catheter and assistance of nephrology and overseeing PD. #Complicated urinary tract infection in setting of chronic suprapubic catheter with recent history of Pseudomonas UTI, stable -Dysuria associated with suprapubic catheter on the weekend of , but asymptomatic since admission on 08/09 -Urine culture here grew MDR Pseudomonas, similar to recent UTI during previous hospitalization 3 weeks prior. Of note, patient did have a UA drawn by PCP on 08/06 which also grew Pseudomonas. -Today barrett day 7 of 7 of intravenous cefepime. -Urine culture results showed sensitivity to cefepime. -This is the main reason for patient's continued admission. Due to the MDR nature of his Pseudomonas, IV antibiotics are indicated. -Patient has remained afebrile during admission -Suprapubic catheter was exchanged out on morning of 08/12 #ESRD with PD in the setting of peritonitis 3 weeks prior, stable -Peritoneal dialysis fluid analysis shows no active peritonitis; final Gram stain showed no organisms/final body fluid culture showed no growth aerobically or anaerobically -Patient is receiving 5 exchanges of peritoneal dialysis daily, being overseen by nephrology. Per nephrology documentation, patient has been dialyzing well. -24-hour peritoneal dialysis late of 10,400 from midnight to midnight -Nephrology service has been consulted. -Of note, patient did have Acinetobacter peritonitis related to his PD just 3 weeks ago and was treated with intraperitoneal gentamicin for a week with normalization of his cell counts relatively quickly. He was discharged home to complete a course of oral levofloxacin. -Hospitalist service appreciates the continued collaborative care and insights from the nephrology service #Hypomagnesemia, improved -Likely associated with patient's ESRD as well as recent poor p.o. intake -Continue to monitor on repeat lab studies and replete PRN #Hyponatremia, stable -Hyponatremia is likely associated with patient's ESRD. -Per nephrology, no intervention is warranted at this time. -Continue to follow daily metabolic panels #Chronic hypoalbuminemia, unchanged -High-protein diet and Nepro daily liquid nutrition supplementation ordered by nephrology. #Multiple sclerosis with paraplegia and neurogenic bladder with suprapubic catheter -home gabapentin continue -Patient is bedbound and Guille lift dependent. -Home tizanidine prn medication continue #Former history of diabetes with diabetic neuropathy -Apparently per records, patient no longer is diabetic after losing significant amount of weight -Home gabapentin continued -High-protein diet in the setting of low albumin #Hyperlipidemia -Home statin continued #Normocytic normochromic anemia, slight worsening from recent baseline -This is a chronic issue and associated with patient's ESRD and iron deficiency anemia. -Hemoglobin this morning was 8.4; marking a 0.6 drop from 08/13. -Prior to that, values had remained stable over the last 72 hours (w/ Hgb in 9s) -Per nephrology, patient is relatively intolerant of all forms of iron supplementation as he develops significant resulting diarrhea. -Patient received 100 mcg of Aranesp on 08/12 from nephrology service. -This has been scheduled qwk dosing -Will continue to monitor his hemoglobin on repeat counts. -No active sources of bleeding are identified at this time. #Chronic abdominal wound -On admission examination, left lower quadrant abdominal wound was covered with Hydrofera Blue and appeared to be healing quite well upon inspection -The dressing over this wound has been changed nearly daily. Patient has no reported pain associated to the wound and has no surrounding erythema, induration, or discharge -Follows with Dr. Castanon of wound care on a monthly basis as outpatient #General social concerns -Patient reportedly lives with a sister who looks over his peritoneal dialysis care and also apparently gets home health, but on presentation, he was quite unkempt. -This raises questions about consistent outpatient hygiene and quality of care; as a result, PFS order has been placed. #DVT prophylaxis: Teds and sequentials of right lower extremity ordered in the setting of patient's significant heparin allergy. CODE STATUS: Patient is full code Disposition: Discharge on Sunday, 08/16 as transportation for the patient back home to [facility] could not be arranged for Sunday, 08/15 when he completes his cefepime dosing. Orders for transportation back to [facility] upon discharge, PCP hospital follow-up appointment, and resumption of home health services have all been placed. VS,Fishbone, I+O VS, Fishbone, I+O Vital Signs Date Time Temp Pulse Resp B/P (MAP) Pulse Ox O2 Delivery O2 Flow Rate FiO2 08/15/20 06:00 97.6 95 16 118/62 (80) 96 Room Air I&O- Last 24 Hours up to 6 AM 08/15/20 06:00 Intake Total 65634 ml Output Total 39855 ml Balance -565 ml JUDI HANSON MD Aug 15, 2020 08:41
[2020-08-15 08:57] LABS: ALBUMIN 1.4 GM/DL (3.2-5.2); BILIRUBIN,TOTAL 0.2 MG/DL (0.2-1.0); CREATININE FOR GFR 4.14 MG/DL (0.70-1.30); MAGNESIUM LEVEL 1.7 MG/DL (1.8-2.4)
[2020-08-15] MEDS: ALBUTEROL 90 MCG/ACT 8GM HFA INHALER INH PRN ×3 (11:14→20:19)
[2020-08-15] MEDS ORDERED: MAG SULF 1GM/100ML (MAG RUN) 1 GM in IV 1 EA IV ONE (12:45)
[2020-08-15 14:00] VITALS: BP 111/54
[2020-08-15] MEDS: LOMOTIL 2.5MG/0.025MG TABLET PO PRN (14:05)
--- NOTE | 2020-08-15 16:10 | IPN ---
[facility] PROGRESS NOTE DATE: 08/15/2020 SUBJECTIVE: Patient was seen and examined at the bedside today morning. His peritoneal dialysis (PD) regimen was changed to 2.5% and he reports he is getting more ultrafiltration with the current regimen. He is losing about 500 mL of fluid with each PD session. He is getting better. He still reports right lower extremity edema. OBJECTIVE: VITAL SIGNS: Temperature 97.6 degrees Fahrenheit, blood pressure 119/62, pulse 95, respiratory rate 16, saturating 96% on room air. INTAKE AND OUTPUT: Ultrafiltration with peritoneal dialysis since overnight is about 900 mL. Weight in the bed scale is 106.2 kg. PHYSICAL EXAMINATION: GENERAL: Patient is awake, alert, oriented times three, obese body habitus, laying in bed, no apparent distress. HEAD AND NECK EXAM: Extraocular muscles intact. Pupils equally round and reactive to light. Mucous membranes are moist. Neck is supple. There is no jugular venous distention (JVD). CARDIOVASCULAR: S1, S2. Regular rate. 2+ edema of the right thigh. RESPIRATORY: Decreased breath sounds bilaterally at the bases. ABDOMEN: Soft. Obese. Positive bowel sounds. Left upper quadrant abdominal wound is covered with a dressing. Right lower quadrant PD catheter is noted. GENITOURINARY: He has a suprapubic catheter. MUSCULOSKELETAL: Ulcer in the right foot covered with a dressing. He has a left above-knee amputation. CENTRAL NERVOUS SYSTEM (CLINICAL SERVICES PROFESSIONAL): Patient is able to communicate and moves bilateral upper extremities. LABORATORY STUDIES: CBC showed WBC 12.9, hemoglobin 9.4, platelets 352. BMP showed sodium 135, potassium 5, chloride 100, bicarbonate 24, BUN 148, creatinine 4.1, magnesium 1.7. CURRENT INPATIENT MEDICATIONS: Patient's medications were all reviewed by myself. His peritoneal dialysis (PD) regimen was checked. I have changed his PD regimen to four exchanges of 2.5% and one exchange of 4.25%. His potassium dose has been changed to 10 mEq by mouth daily by myself and I have him a dose of magnesium sulfate1 gram IV times one dose. ASSESSMENT AND PLAN: 1. End-stage renal disease. Patient is tolerating the peritoneal dialysis (PD) regimen well. However, because of edema and volume overload, his PD regimen has been changed to four exchanges of 2.5% and one exchange of 4.25%. He is getting good ultrafiltration. 2. Hyponatremia. Patient has hypervolemic hyponatremia. Sodium should get better with ultrafiltration. 3. Hypomagnesemia. Patient is getting IV magnesium sulfate. 4. Hypokalemia. Patient's potassium is actually getting higher and his oral potassium dose has been decreased now. 5. Anemia in end-stage renal disease. Hemoglobin level is 9.4, which is stable and improving. Continue current dose of Aranesp. 6. Pseudomonas urinary tract infection. Patient is currently on cefepime. His urine infection is currently getting better.
[2020-08-15] MEDS: CEFEPIME HCL 1 GM in D5W MINI-BAG PLUS 50 ML IV SCH (20:08)
[2020-08-15] MEDS: ATORVASTATIN 10 MG TAB PO SCH (20:12)
[2020-08-15 22:00] VITALS: BP 123/59
[2020-08-16 06:00] VITALS: BP 125/55
--- NOTE | 2020-08-16 08:49 | DS.PDOC ---
Discharge Summary General Date of Admission Aug 09, 2020 at 18:12 Date of Discharge 08/16/2020 Attending Physician: JUDI HANSON MD Discharge Summary PROCEDURES PERFORMED DURING STAY: None ADMITTING DIAGNOSES: CAUTI DISCHARGE DIAGNOSES: MDR pseudomonas CAUTI Sepsis ESRD on PD Multiple sclerosis with paraplegia, neurogenic bladder with an indwelling suprapubic catheter since 2017 Chronic left lower quadrant abdominal wall wound for which she follows with Dr. Ma of wound care and developed after heparin injection Left ainle-acj-hrcn amputation 2019 due to history of worsening left lower extremity spreading infection and peripheral vascular disease Hypertension Chronic right lateral malleolus ulcer and to right groin ulcers Diabetes mellitus history that reportedly resolved after patient lost significant amount of weight Diabetic neuropathy Patient has a pacemaker Chronic diastolic congestive heart failure COMPLICATIONS/CHIEF COMPLAINT: UTI. HISTORY OF PRESENT ILLNESS: 54yo M with an extensive past medical history most notable for end-stage renal disease on peritoneal dialysis with peritonitis 3 weeks ago (late June 2020), be dbound chronically and dependent on Guille lift, multiple sclerosis with neurogenic bladder and indwelling suprapubic catheter, chronic left lower quadrant abdominal wound, left AKA (2019) as result of spreading left lower extremity infection and PVD, who presented to the [facility] ED on 08/09/2020 via EMS from his home in [facility] with a chief complaint of dysuria. Patient reports that whenever he experiences leakage from his penis he usually subsequently will develop a UTI. He began to experience said leakage late last week and called his PCP (Dr. Carter) who ordered amoxicillin 250 mg oral antibiotic. The patient was then subsequently called yesterday evening (Sunday night, 08/08) by Dr. Carter who informed him that the antibiotic would not be strong enough and that he should present to the ED as soon as possible. Of note, patient was admitted from at [facility] for peritonitis associated with his PD catheter. He received a week's worth of intraperitoneal gentamicin and his cell counts normalized. The culture from the peritoneal dialysis fluid grew Acinetobacter and he was to complete a course of oral levofloxacin as outpatient. He also did have a Pseudomonas urinary tract infection during the peritonitis admission last month for which she completed 1 week of IV cefepime. He also takes weekly fosfomycin at home as a prophylactic. He follows with [facility] (has seen all [address] providers [address] Bulmaro Gary). HOSPITAL COURSE: In the ED, he was found to have leukocytosis with WBC of 19.7, serum sodium 132, chloride of 95, BUN 42, creatinine 4.51, calculated GFR 14.5%, ALT 10, alkaline phosphatase 119, albumin 1.7, urinalysis that was abnormal with 2+ protein/3+ blood/2+ leuk esterase/3+ urine bacteria. Outpatient urine culture ultimately grew the quinolone resistant MDR pseudomonas as well as the inhouse admission UCx while 2 blood cultures were negative. Portable chest x-ray showed a pacemaker in place and some mild right basilar atelectasis. He was admitted to medicine for CAUTI and sepsis and was treated with IV cefepime for 7d with resolution of sepsis. Studies for potential peritonitis were negative, and he was continued on PD by nephrology without DISCHARGE MEDICATIONS: Please see below. ALLERGIES: Please see below. PHYSICAL EXAMINATION ON DISCHARGE: VITAL SIGNS: Please see below. GENERAL: Obese, LE plegia, no acute distress. HEENT: Normocephalic, atraumatic. Noninjected, anicteric sclera. Oral cavity: MMM. No pharyngeal erythema or exudate appreciated. Neck: No lymphadenopathy appreciated. Chest: Pacemaker in place in left upper chest, otherwise clear to auscultation, poor effort. CARDIOVASCULAR: Regular rate, regular rhythm. 3/6 systolic murmur present. No rubs are appreciated. Normal S1, S2. ABDOMINAL: Obese, nontender and nondistended. Has peritoneal dialysis catheter in place in the right lower quadrant with no surrounding erythema, induration, or discharge from insertion site. Normoactive bowel sounds throughout. EXTREMITIES: s/p Left AKA. No erythema, wounds, or skin breakdown over stump. Trace pitting edema of distal right lower extremity. Teds hose over the right lower extremity. Tattoos over bilateral forearms. Genitourinary: Suprapubic catheter remains in place with clear light yellow- colored urine collected. There is no erythema, induration, or discharge on skin surrounding suprapubic catheter NEUROLOGICAL: Clear speech. No gross focal neurologic deficits appreciated other than bilateral lower extremity paraplegia that is his baseline. PSYCHOLOGICAL: Very pleasant mood, AOx3 LABORATORY DATA: Please see below. IMAGING: CXR: Dual lead pacemaker is seen in the right heart view of the left side. There is mild linear platelike atelectasis in the right base. The pleural angles are sharp. No infiltrate is seen. Heart is not felt to be enlarged. Pulmonary vasculature is not increased. IMPRESSION: Pacemaker in place. Platelike atelectasis right base. PROGNOSIS: Good ACTIVITY: As tolerated DIET: renal diet DISCHARGE PLAN: Home with services with close PCP follow up, nephrology and urology follow up DISPOSITION: Home with services DISCHARGE INSTRUCTIONS: 1. Home with services with close PCP follow up. ITEMS TO FOLLOWUP ON ON OUTPATIENT: High risk for CAUTI ESRD DISCHARGE CONDITION: Stable TIME SPENT ON DISCHARGE: 48 minutes. Vital Signs/I&Os Vital Signs Date Time Temp Pulse Resp B/P (MAP) Pulse Ox O2 Delivery O2 Flow Rate FiO2 08/16/20 06:00 97.3 97 18 125/55 (78) 99 Room Air I&O- Last 24 Hours up to 6 AM 08/16/20 06:00 Intake Total 8720 ml Output Total 39300 ml Balance -1580 ml Microbiology Microbiology 08/10/20 Gram Stain - Final, Complete 08/10/20 Body Fluid Culture - Final, Complete 08/10/20 Anaerobic Culture - Final, Complete 08/09/20 Blood Culture - Final, Complete NO GROWTH AFTER 5 DAYS 08/09/20 Urine Culture - Final, Complete Pseudomonas Aeruginosa 08/09/20 Blood Culture - Final, Complete NO GROWTH AFTER 5 DAYS Discharge Medications Scheduled Ascorbic Acid (Vitamin C) 500 Mg Tablet, 500 MG PO DAILY, (Reported) Aspirin (Aspirin EC) 81 Mg Tablet.dr, 81 MG PO DAILY, (Reported) Atorvastatin Calcium (Atorvastatin Calcium) 10 Mg Tablet, 10 MG PO QHS, (Reported) Ergocalciferol (Vitamin D2) (Vitamin D2) 50,000 Units Cap, 50,000 UNITS PO QWEEK, (Reported) FRIDAYS Fosfomycin Tromethamine (Fosfomycin Tromethamine) 3 Gram Packet, 3 GM PO QWEEK, (Reported) FRIDAYS Mupirocin (Mupirocin) 2 % Oint...g., 1 APPLIC TOP BID, (Reported) APPLY TO DIALYSIS CATH. Potassium Chloride (Potassium Chloride) 10 Meq Capsule.er, 20 MEQ PO BID, (Reported) Scheduled PRN Albuterol Sulfate (Proair Hfa) 8.5 Gm Hfa.aer.ad, 2 PUFF INH Q4-6HP PRN for wheezing Diphenoxylate HCl/Atropine (Lomotil 2.5-0.025 mg Tablet) 1 Each Tablet, 1 TAB PO TID PRN for DIARRHEA, (Reported) Gabapentin (Gabapentin) 100 Mg Capsule, 100 MG PO TID PRN for PAIN, (Reported) Lidocaine (Lidocaine) 5% Adh..patch, 1 PATCH TOP DAILY PRN for PAIN, (Reported) APPLY TO RIGHT KNEE, RIGHT ANKLE OR BACK Nystatin (Nystatin Powder) 15 Gm Powder, 1 DOSE TOP BID PRN for REDNESS/IRRITATION, (Reported) APPLY TO GROIN Tizanidine HCl (Tizanidine HCl) 2 Mg Tablet, 2 MG PO DAILY PRN for MUSCLE SPASMS, (Reported) Allergies Coded Allergies: latex (Verified Allergy, Intermediate, 12/18/19) heparin (Verified Allergy, Mild, 12/18/19) JUDI HANSON MD Aug 16, 2020 08:49
[2020-08-16] MEDS: GABAPENTIN 100 MG CAP PO SCH (09:00)
[2020-08-16] MEDS ORDERED: POTASSIUM CHLORIDE 10 MEQ SR TABLET PO SCH (09:00)
[2020-08-16] MEDS: ASCORBIC ACID 500 MG TAB PO SCH (09:23)
[2020-08-16] MEDS: ASPIRIN 81MG ENTERIC TABLET PO SCH (09:23)
[2020-08-16] MEDS: MUPIROCIN 2% OINT 22 GM TUBE TOP SCH (09:25)
[2020-08-16] MEDS: ALBUTEROL 90 MCG/ACT 8GM HFA INHALER INH PRN (11:12)
--- NOTE | 2020-08-16 14:14 | IPN ---
NEPHROLOGY PROGRESS NOTE DATE: 08/16/2020 SUBJECTIVE: Patient was seen and examined at the bedside today morning. He is feeling much better. He is back to his baseline. He is supposed to be discharged today. He reports that he is getting good ultrafiltration with the current peritoneal dialysis (PD) regimen and his edema is improving. OBJECTIVE: VITAL SIGNS: Temperature 97.3 degrees Fahrenheit, blood pressure 125/55, pulse 97, respiratory rate 18, saturating 99% on room air. INTAKE AND OUTPUT: Ultrafiltration with peritoneal dialysis so far since overnight is 1200 mL. Weight in the bed scale is 106 kg. PHYSICAL EXAMINATION: GENERAL: Patient is awake, alert, oriented times three, obese body habitus, laying in bed. HEAD AND NECK EXAM: Extraocular muscles intact. Pupils equally round and reactive to light. Mucous membranes are moist. Neck is supple. There is no jugular venous distention (JVD). CARDIOVASCULAR: S1, S2. Regular rate. 2+ edema of the right leg. RESPIRATORY: Mildly decreased breath sounds at the bases. Otherwise no active rales or rhonchi. ABDOMEN: Obese. Positive bowel sounds. Right lower quadrant peritoneal dialysis (PD) catheter. Abdominal wound is covered with a dressing. GENITOURINARY: He has a suprapubic catheter. MUSCULOSKELETAL: Left above-knee amputation and right heel ulcers are noted. CENTRAL NERVOUS SYSTEM (EMPLOYEE RELATIONS CONSULTANT): Patient has multiple sclerosis (MS). He is bedridden. He moves bilateral upper extremities. LABORATORY STUDIES: CBC showed WBC 12.9, hemoglobin 9.4, platelets 352. BMP showed sodium 133, potassium 5, chloride 100, bicarbonate 22, BUN 42, creatinine 4.1 and that is from yesterday. CURRENT INPATIENT MEDICATIONS: Patient's medications were all reviewed by myself. His intravenous (IV) cefepime has been stopped now. ASSESSMENT AND PLAN: 1. End-stage renal disease. Patient is tolerating the peritoneal dialysis. Continue current regimen of all exchanges of 2.5% with as needed 4.25% exchanges. 2. Anemia in end-stage renal disease. Hemoglobin level is stable. He is allergic to IV iron. He got a dose of Aranesp during this hospitalization. 3. Pseudomonas urinary tract infection. Patient's suprapubic catheter was changed. He has finished IV antibiotic. DISPOSITION: Patient is optimized from a nephrology standpoint to be discharged home. He will follow up at the peritoneal dialysis center in about 10 days from now.
== END 2020-08-16 12:56 | disposition home health service (06) | DRG 698 ==
LOC: EDBD 14:53 → M ED 14:53 → M ED INP 18:12 → M PCU 08-10 09:10 → M MSPAV 08-13 18:58
PROVIDERS: ADMIT Internal Medicine; ATTEND Internal Medicine
PROC: 3E1M39Z Irrigation of Peritoneal Cavity using Dialysate, Percutaneous Approach (ICD-10-PCS; principal; 2020-08-09)
DX: T83.518A Infection and inflammatory reaction due to other urinary catheter, initial encounter (principal); N18.6 End stage renal disease; A41.9 Sepsis, unspecified organism; G82.20 Paraplegia, unspecified; E87.1 Hypo-osmolality and hyponatremia; I50.32 Chronic diastolic (congestive) heart failure; E46 Unspecified protein-calorie malnutrition; N25.81 Secondary hyperparathyroidism of renal origin; N31.9 Neuromuscular dysfunction of bladder, unspecified; E78.5 Hyperlipidemia, unspecified; B96.5 Pseudomonas (aeruginosa) (mallei) (pseudomallei) as the cause of diseases classified elsewhere; D50.0 Iron deficiency anemia secondary to blood loss (chronic); E88.09 Other disorders of plasma-protein metabolism, not elsewhere classified; G35 Multiple sclerosis; I73.9 Peripheral vascular disease, unspecified; E83.42 Hypomagnesemia; Z95.0 Presence of cardiac pacemaker; Z87.891 Personal history of nicotine dependence; Z74.01 Bed confinement status; Z89.612 Acquired absence of left leg above knee; Z20.822 Contact with and (suspected) exposure to COVID-19; Z79.82 Long term (current) use of aspirin; Z79.899 Other long term (current) drug therapy; Z99.2 Dependence on renal dialysis; D63.1 Anemia in chronic kidney disease; Y84.6 Urinary catheterization as the cause of abnormal reaction of the patient, or of later complication, without mention of misadventure at the time of the procedure

== ENCOUNTER 2020-08-27 16:32 | Inpatient (IN) | payer MEDICARE, MEDICAID ==
[~2020-08-27] VITALS: Ht 180.3 cm; Wt 98.8 kg
[~2020-08-27 16:32] MED LIST changes: +ALBU8.5H INH; +AMOX250C3 PO; +CIPR500T39 PO; +MUPI2OI TOP
[2020-08-27] MEDS ORDERED: PIPERACILLIN/TAZOBACTAM SOD 3.375 GM in D5W MINI-BAG PLUS 50 ML IV ONE (18:20)
[2020-08-27 18:51] LABS: BILIRUBIN, URINE MANUAL NEGATIVE (NEGATIVE); GLUCOSE, URINE (UA) MANUAL NEGATIVE (NEGATIVE); KETONE, URINE MANUAL NEGATIVE (NEGATIVE); UROBILINOGEN, URINE MANUAL NORMAL (NORMAL)
[2020-08-27 18:57] LABS: SQUAMOUS EPITHELIAL CELL URINE SMALL AMOUNT /hpf (SMALL AMT); TRANSITIONAL EPI CELLS, URINE SMALL AMOUNT /hpf
[2020-08-27 18:58] LABS: BACTERIA, URINE MOD AMOUNT; HYALINE CAST, URINE NONE SEEN /lpf (0-1)
[2020-08-27 19:09] LABS: BASO # 0.1 10^3/uL (0.0-0.2); BASO % 0.6 % (0.0-1.0); EOS # 0.3 10^3/uL (0.0-0.5); EOS % 2.3 % (0.0-3.0); HEMATOCRIT 28.6 % (42.0-52.0); LYMPH # 2.7 10^3/uL (1.5-5.0); LYMPH % 23.5 % (24.0-44.0); MEAN CORPUSCULAR HEMOGLOBIN 25.8 pg (27.0-33.0); MEAN CORPUSCULAR HGB CONC 31.5 g/dl (32.0-36.5); MEAN CORPUSCULAR VOLUME 81.9 fl (80.0-96.0); MONO # 0.7 10^3/uL (0.0-0.8); MONO % 6.4 % (2.0-8.0); NEUTROPHILS # 7.6 10^3/uL (1.5-8.5); NEUTROPHILS % 66.8 % (36.0-66.0); PLATELET COUNT, AUTOMATED 371 10^3/uL (150-450); RED BLOOD COUNT 3.49 10^6/uL (4.30-6.10); WHITE BLOOD COUNT 11.3 10^3/uL (4.0-10.0)
[2020-08-27] MEDS ORDERED: PROAAER10 INH (19:12)
[2020-08-27 19:32] LABS: CALCIUM LEVEL 7.8 MG/DL (8.5-10.1); CREATININE FOR GFR 4.76 MG/DL (0.70-1.30); GLOMERULAR FILTRATION RATE 13.6 (>56); POTASSIUM SERUM 3.1 MEQ/L (3.5-5.1)
[2020-08-27 20:09] LABS: RSV AMPLIFICATION NEGATIVE (NEGATIVE)
[2020-08-27] MEDS ORDERED: LIDOCAINE 5% (LIDODERM) PATCH TOP PRN (21:05)
[2020-08-27] MEDS ORDERED: MAALOX 30 ML SUSP *UDC PO PRN (21:05)
[2020-08-27] MEDS ORDERED: GABAPENTIN 100 MG CAP PO PRN (21:05)
[2020-08-27] MEDS ORDERED: tiZANidine 4 MG TAB PO PRN (21:05)
[2020-08-27] MEDS ORDERED: MOM 30ML SUSPENSION UDC PO PRN (21:05)
[2020-08-27] MEDS ORDERED: GLUCAGON INJ 1MG VIAL SC PRN (21:10)
[2020-08-27] MEDS ORDERED: GLUCOSE 4GM CHEW TABLET PO PRN (21:10)
[2020-08-27] MEDS ORDERED: DEXTROSE 50% 50 ML SYRINGE IV PRN (21:10)
--- NOTE | 2020-08-27 21:10 | HPEPDOC ---
[facility] Medical History & Physical Date of Admission Aug 28, 2020 Date of Service: Aug 28, 2020 Attending Physician: MARGARET HIGH MD History and Physical CHIEF COMPLAINT: [54 y/o male with + urine culture for pseudomonas] HISTORY OF PRESENT ILLNESS: [This is a 54 y/o male with a pmh of chf s/p pacer p lacement, dm2, ms with paraplegia and chronic indwelling suprapubic catheter, esrd on nightly peritoneal dialysis who presents to the ED on 08/27 with a complaint of positive urine culture found at his senior living. Patient states that staff at the home noticed a change in urine appearance and noticed some drainage and decided to send a culture which subsequently came back for pseudomonas. Patient states that he feels fine and has no acute complaints and is denying dysuria, fevers, chills, n/v/d/c, chest pain, sob, abd pain.] PAST MEDICAL HISTORY: 1. [see HPI PAST SURGICAL HISTORY: 1. [Pacemaker placement]. 2. [Peritoneal dialysis catheter placement]. 3. [Suprapubic catheter placement]. SOCIAL HISTORY: Tobacco use:[Denies] ETOH: [Denies] Illicit drug use: [Denies] FAMILY HISTORY: Mother - CAD ALLERGIES: Please see below. REVIEW OF SYSTEMS: CONSTITUTIONAL: [Denies fever, chills]. HEENT: [Denies uri sx]. CARDIOVASCULAR: [Denies chest pain, palpitations]. RESPIRATORY: [Denies sob, wheezing]. GASTROINTESTINAL: [See HPI]. GENITOURINARY: [See HPI]. SKIN: [Denies rash]. MUSCULOSKELETAL: [Denies acute joint/back pain]. NEUROLOGICAL: [Denies syncope, paresthesias]. ENDOCRINE: [Hx of DM]. HEMATOLOGIC/LYMPHATIC: [Denies easy bruising]. HOME MEDICATIONS: Please see below. PHYSICAL EXAMINATION: VITAL SIGNS: Please see below. GENERAL APPEARANCE: [This is a 54 y/o male who is resting comfortably in bed in no acute respiratory distress]. HEENT: [No mass or lesion. EOMI. No scleral icterus. Nares patent. Oral mucosa moist.]. CARDIOVASCULAR: [Regular rate, rhythm. 3/6 murmur appreciated best at right upper sternal border.]. LUNGS: [Good air flow b/l. no wheezing, rales, rhonchi.]. ABDOMEN: [Soft, mildly tender to palpation of suprapubic region. Suprapubic and peritoneal catheters in place. Suprapubic catheter shows some purulent drainage.]. MUSCULOSKELETAL: [Left sided BKA.]. EXTREMITIES: [No peripheral edema. No overlying skin changes. Pulses intact.]. NEUROLOGICAL: [Speech clear. A+Ox3. No focal deficits.]. PSYCHIATRIC: [Mood and affect appear appropriate.]. LABORATORY DATA: See below. IMAGING: [None performed.] MICROBIOLOGY: Please see below. ASSESSMENT: [This is a 54 y/o male with a pmh of chf s/p pacer placement, dm2, ms with paraplegia and chronic indwelling suprapubic catheter, esrd on nightly peritoneal dialysis who presents to the ED on 08/27 with a complaint of positive urine culture found at his senior living. Patient states that staff at the home noticed a change in urine appearance and noticed some drainage and decided to send a culture which subsequently came back for pseudomonas. Patient states that he feels fine and has no acute complaints and is denying dysuria, fevers, chills, n/v/d/c, chest pain, sob, abd pain.]. . PLAN: 1. [UTI - possibly pseudomonas colonization. - only sirs criteria at this time is leukocytosis of 11.3 - will give iv cefepime 1g q24 - patient received dose of zosyn in the ed - no need for ivf at this time - admit to med surg under obs for iv abx 2. ESRD - Dr. Maegan Gary, nephrology, has been consulted for management of peritoneal dialysis. Assistance is greatly appreciated. - continue mupirocin to hd cath site - patient's potassium somewhat low at 3.1, extra supplementation given 3. CHF - patient not in acute exacerbation 4. HLD - continue atorvastatin, asa 5. DM - sliding scale insulin - hypoglycemic protocol - continue gabapentin DVT prophylaxis - mechanical]. Vital Signs Vital Signs Date Time Temp Pulse Resp B/P (MAP) Pulse Ox O2 Delivery O2 Flow Rate FiO2 08/27/20 19:34 97.3 81 16 124/53 (76) 97 Room Air Laboratory Data Labs 24H Laboratory Tests 2 08/27/20 17:39: Urine Color (YEIMY) YELLOW, Urine Appearance (YEIMY) CLOUDYH, Urine pH (YEIMY) 6.0, Urine Specific [place] (YEIMY) 1.015, Urine Protein 3+H, Bedside Urine Glucose (UA) NEGATIVE, Bedside Urine Ketones (LAB) NEGATIVE, Bedside Urine Blood POSITIVEH, Bedside Urine Nitrite (LAB) NEGATIVE, Bedside Urine Bilirubin (LAB) NEGATIVE, Bedside Urine Urobilinogen (LAB) NORMAL, Bedside Urine Leukocyte Esterase (L POSITIVEH, Urine Sediment Examination UNSPUN, Urine RBC 1-3, Urine WBC TNTCH, Urine Squamous Epithelial Cells SMALL AMOUNT, Urine Transitional Epithelial Cells SMALL AMOUNTH, Urine Bacteria MOD AMOUNTH, Urine Hyaline Casts NONE SEEN 08/27/20 18:49: Immature Granulocyte % (Auto) 0.4, Neutrophils (%) (Auto) 66.8H, Lymphocytes (%) (Auto) 23.5L, Monocytes (%) (Auto) 6.4, Eosinophils (%) (Auto) 2.3, Basophils (% ) (Auto) 0.6, Neutrophils # (Auto) 7.6, Lymphocytes # (Auto) 2.7, Monocytes # (Auto) 0.7, Eosinophils # (Auto) 0.3, Basophils # (Auto) 0.1, Nucleated Red Blood Cells % (auto) 0.0, Anion Gap 8, Glomerular Filtration Rate 13.6L, Lactic Acid Level 1.4, Calcium Level 7.8L 08/27/20 18:50: Coronavirus (COVID-19)(PCR) NEGATIVE, Influenza Type A (RT-PCR) NEGATIVE, Influenza Type B (RT-PCR) NEGATIVE, Respiratory Syncytial Virus (PCR) NEGATIVE CBC/BMP Laboratory Tests 08/27/20 18:49 Microbiology Microbiology 08/27/20 Blood Culture, Received Pending 08/27/20 Blood Culture, Received Pending 08/27/20 Urine Culture, Received Pending Home Medications Scheduled Ascorbic Acid (Vitamin C) 500 Mg Tablet, 500 MG PO QHS Aspirin (Aspirin EC) 81 Mg Tablet.dr, 81 MG PO QHS Atorvastatin Calcium (Atorvastatin Calcium) 10 Mg Tablet, 10 MG PO QHS Ergocalciferol (Vitamin D2) (Vitamin D2) 50,000 Units Cap, 50,000 UNITS PO QWEEK FRIDAYS Fosfomycin Tromethamine (Fosfomycin Tromethamine) 3 Gram Packet, 3 GM PO QWEEK FRIDAYS Mupirocin (Mupirocin) 2 % Oint...g., 1 APPLIC TOP BID APPLY TO DIALYSIS CATH. Potassium Chloride (Potassium Chloride) 10 Meq Capsule.er, 20 MEQ PO BID Scheduled PRN Albuterol Sulfate (Proair Hfa) 8.5 Gm Hfa.aer.ad, 1 PUFF INH Q4H PRN for SHORTNESS OF BREATH Diphenoxylate HCl/Atropine (Lomotil 2.5-0.025 mg Tablet) 1 Each Tablet, 1 TAB PO TID PRN for DIARRHEA Gabapentin (Gabapentin) 100 Mg Capsule, 100 MG PO TID PRN for PAIN Lidocaine (Lidocaine) 5% Adh..patch, 1 PATCH TOP DAILY PRN for PAIN APPLY TO RIGHT KNEE, RIGHT ANKLE OR BACK Nystatin (Nystatin Powder) 15 Gm Powder, 1 DOSE TOP BID PRN for REDNESS/IRRITATION APPLY TO GROIN Tizanidine HCl (Tizanidine HCl) 2 Mg Tablet, 2 MG PO DAILY PRN for MUSCLE SPASMS Allergies Coded Allergies: latex (Verified Allergy, Intermediate, 12/18/19) heparin (Verified Allergy, Mild, 12/18/19) A-FIB/CHADSVASC A-FIB History Current/History of A-Fib/PAF?: No JIM MEDEL Aug 27, 2020 21:10
[2020-08-27] MEDS ORDERED: POTASSIUM CHLORIDE 10 MEQ SR TABLET PO ONE (21:35)
[2020-08-27] MEDS ORDERED: PILL CUTTER 1 EACH XX ONE (22:58)
[2020-08-27] MEDS: ATORVASTATIN 10 MG TAB PO SCH (23:01)
[2020-08-27] MEDS: ASPIRIN 81MG ENTERIC TABLET PO SCH (23:01)
[2020-08-27] MEDS: POTASSIUM CHLORIDE 10 MEQ SR TABLET PO SCH (23:02)
[2020-08-27] MEDS: ASCORBIC ACID 500 MG TAB PO SCH (23:02)
[2020-08-27] MEDS: ACETAMINOPHEN TAB 650MG DOSE (2X325MG) PO PRN (23:03)
[2020-08-27] MEDS: HumaLOG INSULIN (NovoLOG) PER UNIT SC SCH (23:13)
[2020-08-28] MEDS ORDERED: PIPERACILLIN/TAZOBACTAM SOD 2.25 GM in D5W MINI-BAG PLUS 50 ML IV SCH (02:00)
[2020-08-28 02:41] VITALS: BP 124/54
[2020-08-28] MEDS: CEFEPIME HCL 1 GM in D5W MINI-BAG PLUS 50 ML IV SCH ×2 (03:14→23:47)
[2020-08-28 06:00] VITALS: BP 109/55
[2020-08-28 07:00] LABS: HEMATOCRIT 28.5 % (42.0-52.0); MEAN CORPUSCULAR HEMOGLOBIN 25.9 pg (27.0-33.0); MEAN CORPUSCULAR HGB CONC 31.6 g/dl (32.0-36.5); MEAN CORPUSCULAR VOLUME 82.1 fl (80.0-96.0); PLATELET COUNT, AUTOMATED 344 10^3/uL (150-450); RED BLOOD COUNT 3.47 10^6/uL (4.30-6.10); WHITE BLOOD COUNT 8.6 10^3/uL (4.0-10.0)
[2020-08-28 07:29] LABS: CALCIUM LEVEL 7.9 MG/DL (8.5-10.1); CREATININE FOR GFR 5.02 MG/DL (0.70-1.30); GLOMERULAR FILTRATION RATE 12.8 (>56); POTASSIUM SERUM 3.6 MEQ/L (3.5-5.1)
[2020-08-28] MEDS: HumaLOG INSULIN (NovoLOG) PER UNIT SC SCH ×4 (07:30→21:00)
[2020-08-28 07:31] LABS: PERCENT SATURATION 19.4 % (19.7-50.0)
[2020-08-28] MEDS: POTASSIUM CHLORIDE 10 MEQ SR TABLET PO SCH ×2 (10:08→21:48)
[2020-08-28] MEDS: ACETAMINOPHEN TAB 650MG DOSE (2X325MG) PO PRN (10:20)
--- NOTE | 2020-08-28 12:08 | IPN ---
PROGRESS NOTE DATE: 08/28/2020 Eitan was admitted with a pseudomonas urinary tract infection (UTI). He is on cefepime for this, and I have access to the culture results for which he was admitted. It looks like he had pseudomonas in his urine in July and June of this year. He feels well. No fever, chills, flank pain. PHYSICAL EXAMINATION: Afebrile. Vital signs stable. Alert, oriented, and conversant. Lungs clear. Heart regular rate and rhythm. Abdomen soft, nontender. No peripheral edema. LABORATORY DATA: White count 8.6, hemoglobin 9, platelets 344. Sodium 131, potassium 3.6, BUN 40. Iron studies showed no iron deficiency. His TIBC is low, and his ferritin is normal. IMPRESSION: 1. Pseudomonas urinary tract infection (UTI). He is on cefepime for this, 1 gram every 24 hours. 2. End-stage renal disease. Gets peritoneal dialysis. Dr. Gary has been consulted. 3. Diabetes. Sliding scale insulin to be continued. 4. Paraplegia secondary to multiple sclerosis. This is stable. 5. Chronic indwelling suprapubic catheter with recurrent urinary tract infections. I am not sure whether he sees a urologist or not. Refer to his general ledger accountant about this.
[2020-08-28 14:00] VITALS: BP 125/59
[2020-08-28] MEDS: MUPIROCIN 2% OINT 22 GM TUBE TOP SCH ×2 (14:46→22:51)
[2020-08-28] MEDS: NYSTATIN 100,000 UNITS/GM TOPICAL PWD 15 GM TOP PRN ×2 (14:47→22:51)
[2020-08-28] MEDS: ALBUTEROL 90 MCG/ACT 8GM HFA INHALER INH PRN (19:13)
[2020-08-28] MEDS: **NOTE PATIENT COMMENT** MISC XX SCH (21:00)
--- NOTE | 2020-08-28 21:19 | CR ---
CONSULTATION DATE: 08/28/2020 REFERRING PHYSICIAN: Ed Loving M.D. REASON FOR CONSULTATION: To assist in the management of end-stage renal disease. The patient was discussed with the emergency room physician last evening at the time of admission. REASON FOR ADMISSION: Urinary tract infection. HISTORY OF PRESENT ILLNESS: Mr. Mena is a 54-year-old, unfortunate gentleman with multiple chronic medical problems. He is chronically the bedridden due to his neurological condition as he has a known history for paraplegia due to multiple sclerosis. He also has diabetes, end-stage renal disease and chronic urinary tract infection with Pseudomonas. He has a suprapubic catheter which gets changed every few weeks. He was sent from [facility] to [facility] for admission due to infection with Pseudomonas in his urinary tract. There is also potential risk for sepsis and bacteremia. His blood culture in fact has already been reported positive of gram negative rods. The patient has been on home peritoneal dialysis and nephrology consultation was requested. The patient is seen this morning. PAST MEDICAL AND SURGICAL HISTORY: 1. History of paraplegia due to multiple sclerosis. 2. Urinary retention, status post suprapubic catheter. 3. End-stage renal disease. 4. Diabetes. 5. Anemia. 6. History of decubitus ulcers. 7. History of peripheral vascular disease, status post left [id number] amputation. 8. History of chronic hypotension. 9. History of abdominal wall wound on the left lower quadrant. 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 11. History of diastolic congestive heart failure. 12. History of permanent pacemaker placement. 13. Prior history of right knee surgery. 14. History of peritoneal dialysis catheter placement. 15. History of pressure ulcers on his right foot. MEDICATIONS: 1. Cefepime 1 gm every 24 hours. 2. Tylenol 650 mg p.r.n. for pain and temperature. 3. Albuterol inhaler one puff b.i.d. 4. Mylanta as needed for dyspepsia. 5. Vitamin C 500 mg daily. 6. Aspirin 81 mg daily. 7. Lipitor 10 mg daily. 8. Lomotil one tablet as needed for the diarrhea. 9. Lidoderm patch p.r.n. for pain. 10. Potassium chloride 20 mEq b.i.d. 11. Tizanidine 2 mg daily for muscle cramps. ALLERGIES: THE PATIENT HAS INTOLERANCE TO LATEX AND HEPARIN. HE ALSO HAS INTOLERANCE TO IRON SUPPLMENT WHICH GIVES HIM SEVERE DIARRHEA. PERSONAL AND SOCIAL HISTORY: The patient is single, lives with his sister who his caregiver. He did not smoke or drink. FAMILY HISTORY: Noncontributory and negative for end-stage renal disease. REVIEW OF SYSTEMS: The patient denies any fever or chills. Ears, nose and throat are unremarkable. Cardiovascular system: Negative for dyspnea or chest pain. Respiratory system negative for cough or hemoptysis. GI system is significant for history of recurrent diarrhea. He denies any abdominal pain or vomiting at present. system is significant for chronic urinary infection with Pseudomonas and he has suprapubic catheter. Musculoskeletal system is significant for paraplegia, and decubitus ulcers and prior left [id number] amputation. Neurological system is significant for multiple sclerosis causing paraplegia and bedridden condition. Hematological system is significant for chronic anemia. He has required transfusions. Endocrine system is significant for diabetes and secondary hyperparathyroidism. PHYSICAL EXAMINATION: The patient is awake and at his baseline mentation. Temperature is 97.4 degrees Fahrenheit, heart is 74 per minute and respiratory rate 18 per minute. Blood pressure 103/59 mmHg and oxygen saturation 99% on room air. Head is atraumatic. Neck: Supple and JVD not abnormally elevated. Oral hygiene is poor. Heart sounds are regular and lungs clear to auscultation. Abdomen is soft and nontender. There is a dressing on the abdominal wall wound on the left side where he has a wound. His peritoneal dialysis catheter in the right lower quadrant is intact. Extremities have no cyanosis or clubbing. He has prior left above the knee amputation. There is a small pressure ulcer on the right foot. Neurologically he is awake and at his baseline mentation. He has chronic neurological deficits related to multiple sclerosis. LABORATORY DATA: WBC count was 11.3 last evening and today is down to 8.6. Hemoglobin 9.0 and hematocrit 28.5. Sodium 131, potassium 3.6, CO 2 29, BUN 40 and creatinine 5.02. Calcium 7.9. Iron level is 30 and saturation 19.4%. Ferritin 138. Urinalysis showed too numerous to count WBCs and positive leukocyte esterase. Blood culture has been reported positive for gram negative rods in two sets. PROBLEMS: 1. Gram negative bacteremia and history of Pseudomonas UTI. I am concerned about the possibility of Pseudomonas bacteremia. The patient is started on IV antibiotic and we would probably need to treat him for at last two weeks. He was here in the hospital just about three weeks ago with similar problem. 2. End-stage renal disease. The patient has been on peritoneal dialysis at home. He uses [facility] dialysis system which is not available in the hospital. We will convert his peritoneal dialysis catheter to [facility] system and I have made multiple efforts to get the supplies. I have also contacted outpatient dialysis unit to get the supplies for conversion. I will perform it myself so that he can receive dialysis. 3. Anemia. He does have chronic anemia and has required transfusions in the past. He has chronic iron deficiency. However, he has very intolerant of any intravenous iron which gives him severe diarrhea. At this point, we will continue to watch and treat him has needed. 4. Hypokalemia. The patient has chronic hypokalemia requiring potassium supplement. We will continue with oral potassium chloride 20 mEq b.i.d. 5. Chronic protein calorie malnutrition. The patient has chronic protein calorie malnutrition and should be on high protein diet. He should also be given Nepro one can daily. 6. Hypotension. The patient has chronic hypotension which is stable at this point. We will continue to monitor and he does not need any medication for it at this point. Thank you for involving me in the care of Mr. Mena. I will follow him along with you.
[2020-08-28] MEDS: ASPIRIN 81MG ENTERIC TABLET PO SCH (21:48)
[2020-08-28] MEDS: ATORVASTATIN 10 MG TAB PO SCH (21:48)
[2020-08-28] MEDS: ASCORBIC ACID 500 MG TAB PO SCH (21:48)
[2020-08-28 22:00] VITALS: BP 121/60
[2020-08-29 06:00] VITALS: BP 111/64
[2020-08-29] MEDS: ALBUTEROL 90 MCG/ACT 8GM HFA INHALER INH PRN ×3 (06:02→16:25)
[2020-08-29 06:58] LABS: HEMATOCRIT 28.4 % (42.0-52.0); MEAN CORPUSCULAR HEMOGLOBIN 26.2 pg (27.0-33.0); MEAN CORPUSCULAR HGB CONC 31.7 g/dl (32.0-36.5); MEAN CORPUSCULAR VOLUME 82.8 fl (80.0-96.0); PLATELET COUNT, AUTOMATED 356 10^3/uL (150-450); RED BLOOD COUNT 3.43 10^6/uL (4.30-6.10); WHITE BLOOD COUNT 8.9 10^3/uL (4.0-10.0)
[2020-08-29] MEDS: HumaLOG INSULIN (NovoLOG) PER UNIT SC SCH ×4 (07:30→21:00)
[2020-08-29 07:31] LABS: CALCIUM LEVEL 7.3 MG/DL (8.5-10.1); CREATININE FOR GFR 5.2 MG/DL (0.70-1.30); GLOMERULAR FILTRATION RATE 12.3 (>56); POTASSIUM SERUM 4.7 MEQ/L (3.5-5.1)
[2020-08-29] MEDS: NYSTATIN 100,000 UNITS/GM TOPICAL PWD 15 GM TOP PRN (10:40)
[2020-08-29] MEDS: POTASSIUM CHLORIDE 10 MEQ SR TABLET PO SCH ×2 (10:40→22:14)
[2020-08-29] MEDS: MUPIROCIN 2% OINT 22 GM TUBE TOP SCH ×2 (10:41→22:13)
--- NOTE | 2020-08-29 13:29 | IPN ---
NEPHROLOGY PROGRESS NOTE DATE: 08/29/2020 SUBJECTIVE: Mr. Mena is seen this morning on his bedside. He is feeling well and denies any nausea, vomiting, dyspnea, chest pain, fever or chills. His blood cultures did come back positive for gram-negative rods. Urine culture is positive for Pseudomonas aeruginosa. His peritoneal dialysis is functioning well; however, he has been draining about 1600 mL out of 1999. PHYSICAL EXAMINATION: Temperature 97.8 degrees Fahrenheit, heart rate 75 per minute, respiratory rate 18 per minute, blood pressure 111/64 mmHg, oxygen saturation 99% on room air. HEAD: Atraumatic. NECK: Supple and without jugular venous distention (JVD) or thyroid enlargement. HEART SOUNDS: Regular. LUNGS: Clear to auscultation. ABDOMEN: Soft and nontender. Peritoneal dialysis catheter is intact. Abdominal wall wound is covered with dressing on the left upper abdomen. EXTREMITIES: Without any cyanosis or clubbing. He has a prior left [id number] amputation. His suprapubic catheter is in place. NEUROLOGIC: He is awake and at his baseline mentation. LABORATORY DATA: Today's labs show WBC 8.9, hemoglobin 9.0, hematocrit 28.4, platelets 356. Sodium 133, potassium 4.7, CO2 28, BUN 42, creatinine 5.2, glucose 95, calcium 7.3. PROBLEMS: 1. End-stage renal disease. Peritoneal dialysis is functioning well and we will continue with five exchanges per day. I am changing to 2.5% solution in view of positive fluid balance. 2. Hyponatremia. He has chronic mild hyponatremia, which is essentially unchanged. We will continue to monitor his electrolytes. 3. Anemia. His anemia is stable. He does have chronic iron deficiency. Unfortunately, he is very intolerant of oral iron supplement. We will give him Aranesp 100 mcg tomorrow and continue to monitor. 4. Pseudomonas urinary tract infection (UTI) and bacteremia. Most likely, he has pseudomonas bacteremia as a result of UTI. He is currently hemodynamically stable and remains on cefepime. I would recommend two weeks of intravenous antibiotic. 5. Hypotension. He has chronic hypotension. At present, he seems to be stable. Not on any antihypertensive medications. 6. Protein calorie malnutrition. This is a chronic issue and patient remains on a high protein diet. He is eating well.
[2020-08-29 14:00] VITALS: BP 127/70
--- NOTE | 2020-08-29 15:23 | IPN ---
PROGRESS NOTE DATE: 08/29/2020 SUBJECTIVE: Eitan is being treated for pseudomonas urinary tract infection (UTI). He gets perineal dialysis. His perineal dialysis is going well, after discussion with his nurse today. Patient had one of two blood cultures positive with gram-positive rods. Suspect contaminant. Final identification is not back yet. PHYSICAL EXAMINATION: VITAL SIGNS: Afebrile. Vital signs stable. LUNGS: Clear. HEART: Regular rate and rhythm. ABDOMEN: Soft, nontender. EXTREMITIES: No peripheral edema. LABORATORY DATA: CBC and CMP are stable. Potassium is 4.7. IMPRESSION: 1. Pseudomonas urinary tract infection (UTI). Continue cefepime. It is day #2 of this. 2. End-stage renal disease. He gets perineal dialysis and Dr. Gary is seeing him. 3. Positive blood cultures. Suspect contaminant. Awaiting results of final identification to come back. 4. Diabetes. Sliding scale insulin with coverage. 5. Hyperlipidemia. Continue his atorvastatin 10 mg daily. 6. Multiple sclerosis. He is on Neurontin and tizanidine. He is a paraplegic from the multiple sclerosis (MS).
[2020-08-29] MEDS: **NOTE PATIENT COMMENT** MISC XX SCH (21:00)
[2020-08-29 22:00] VITALS: BP 125/57
[2020-08-29] MEDS: ASCORBIC ACID 500 MG TAB PO SCH (22:13)
[2020-08-29] MEDS: ATORVASTATIN 10 MG TAB PO SCH (22:14)
[2020-08-29] MEDS: ASPIRIN 81MG ENTERIC TABLET PO SCH (22:14)
[2020-08-29] MEDS: hydrOXYzine 25 MG TAB PO PRN (22:28)
[2020-08-29] MEDS: CEFEPIME HCL 1 GM in D5W MINI-BAG PLUS 50 ML IV SCH (23:49)
[2020-08-30] MEDS: ALBUTEROL 90 MCG/ACT 8GM HFA INHALER INH PRN ×2 (00:30→05:59)
[2020-08-30 06:00] VITALS: BP 118/66
[2020-08-30 06:03] LABS: HEMATOCRIT 26.1 % (42.0-52.0); HEMOGLOBIN 8.2 g/dl (13.5-17.5); MEAN CORPUSCULAR HEMOGLOBIN 25.7 pg (27.0-33.0); MEAN CORPUSCULAR HGB CONC 31.4 g/dl (32.0-36.5); MEAN CORPUSCULAR VOLUME 81.8 fl (80.0-96.0); PLATELET COUNT, AUTOMATED 329 10^3/uL (150-450); RED BLOOD COUNT 3.19 10^6/uL (4.30-6.10); WHITE BLOOD COUNT 9.4 10^3/uL (4.0-10.0)
[2020-08-30 06:24] LABS: CALCIUM LEVEL 7.1 MG/DL (8.5-10.1); CREATININE FOR GFR 4.88 MG/DL (0.70-1.30); GLOMERULAR FILTRATION RATE 13.3 (>56); POTASSIUM SERUM 4.4 MEQ/L (3.5-5.1)
[2020-08-30] MEDS: HumaLOG INSULIN (NovoLOG) PER UNIT SC SCH ×4 (07:30→20:59)
[2020-08-30] MEDS: POTASSIUM CHLORIDE 10 MEQ SR TABLET PO SCH ×2 (09:00→23:41)
[2020-08-30] MEDS: IRON SUCROSE 100MG 5ML VIAL (J1756 PER 1MG) IV SCH (09:00)
[2020-08-30] MEDS ORDERED: DARBEPOETIN 100 MCG/0.5 ML *NON-DIALYSIS* SYRINGE (J0881) SC SCH (09:00)
--- NOTE | 2020-08-30 10:20 | IPN ---
PROGRESS NOTE DATE: 08/30/2020 SUBJECTIVE: Eitan feels well. No fever, chills, or shortness of breath. His blood pressure has been stable. OBJECTIVE: VITAL SIGNS: Afebrile. Vital signs stable. LUNGS: Clear. HEART: Regular rate and rhythm. ABDOMEN: Soft and nontender. EXTREMITIES: No peripheral edema. LABORATORY DATA: White count 9.4, hemoglobin 8.2, platelets 329,000. Sodium 134, potassium 4, BUN 45, creatinine 4.8, glucose 91. Blood cultures show no growth on one sample and the other has both Acinetobacter, for which susceptibility standards are not available, as well as a second bacteria that is not yet identified. IMPRESSION: 1. Pseudomonas urinary tract infection. He is on cefepime and it is day #3. 2. Acinetobacter haemolyticus on one blood culture. This could be a contaminant. A quick literature search shows that typically, this should be present in multiple blood cultures before being treated. I would wait for the final pathogen to be identified on blood culture and consider consulting infectious disease with any question about treatment. 3. End-stage renal disease receiving peritoneal dialysis. Dr. Gary is involved. 4. Diabetes. Sliding scale insulin coverage. 5. Multiple sclerosis on Neurontin and tizanidine. He has paraplegia from multiple sclerosis.
[2020-08-30 10:56] LABS: FOLATE 3.5 NG/ML (>5.4)
[2020-08-30] MEDS: MUPIROCIN 2% OINT 22 GM TUBE TOP SCH ×2 (10:56→23:39)
[2020-08-30] MEDS: LOMOTIL 2.5MG/0.025MG TABLET PO PRN ×3 (11:20→19:02)
[2020-08-30 12:00] VITALS: BP 121/56
--- NOTE | 2020-08-30 12:30 | IPN ---
PROGRESS NOTE DATE: 08/30/2020 SUBJECTIVE: Mr. Mena is seen this morning on his bedside. He is feeling well and denies any new complaints. He has no fever, chills, nausea or vomiting. His peritoneal dialysis has been working well. He remains on Cefepime for pseudomonas UTI. His blood cultures came back positive for Acinetobacter. OBJECTIVE: VITAL SIGNS: Temperature is 97.8 degrees Fahrenheit, heart rate is 90 per minute and respiratory rate is 17 per minute. Blood pressure 118/66 mmHg and oxygen saturation 97% on room air. HEENT: Head is atraumatic. NECK: Supple. JVD is difficult to be assessed. HEART: Heart sounds are regular. LUNGS: Clear to auscultation. ABDOMEN: Obese, soft and nontender. Peritoneal dialysis catheter is intact. Abdominal wall wound on the left side is covered with a dressing. EXTREMITIES: Without any cyanosis or clubbing. He has a remote left above the knee amputation. LABORATORY DATA: Today's labs showed a WBC of 9.4, hemoglobin is 8.2 and hematocrit 26.1, platelets are 329,000. Sodium is 134, potassium is 4.4, CO2 is 29, BUN 45 and creatinine 4.88. Glucose is 91 and calcium 7.1. PROBLEMS: 1. Endstage renal disease. Patient remains on peritoneal dialysis and he is tolerating it well. He is receiving five exchanges per day with 2.5 liter bag. 2. Iron deficiency anemia, this is a chronic issue. I am going to try giving him low dose intravenous Venofer 50 mg once a day and see how he tolerates it. In the past, he has a history of getting diarrhea with intravenous iron. 3. Hypotension. His chronic hypotension is stable and at this point we will continue to monitor closely without any medication. 4. Pseudomonas urinary infection. Patient has chronic indwelling suprapubic catheter with pseudomonas infection. He is currently receiving intravenous Cefepime.
[2020-08-30 14:00] VITALS: BP 121/56
[2020-08-30] MEDS ORDERED: BOUDREAUX'S BUTT PASTE TOP PRN (19:40)
[2020-08-30] MEDS: **NOTE PATIENT COMMENT** MISC XX SCH (21:00)
[2020-08-30 22:00] VITALS: BP 123/56
[2020-08-30] MEDS ORDERED: ARGATROBAN XX ONE (22:20)
[2020-08-30] MEDS: CEFEPIME HCL 1 GM in D5W MINI-BAG PLUS 50 ML IV SCH (23:37)
[2020-08-30] MEDS: ASPIRIN 81MG ENTERIC TABLET PO SCH (23:41)
[2020-08-30] MEDS: ASCORBIC ACID 500 MG TAB PO SCH (23:41)
[2020-08-30] MEDS: ATORVASTATIN 10 MG TAB PO SCH (23:41)
[2020-08-31 06:00] VITALS: BP 111/56
[2020-08-31 07:19] LABS: HEMATOCRIT 26.8 % (42.0-52.0); HEMOGLOBIN 8.4 g/dl (13.5-17.5); MEAN CORPUSCULAR HEMOGLOBIN 25.9 pg (27.0-33.0); MEAN CORPUSCULAR HGB CONC 31.3 g/dl (32.0-36.5); MEAN CORPUSCULAR VOLUME 82.7 fl (80.0-96.0); PLATELET COUNT, AUTOMATED 339 10^3/uL (150-450); RED BLOOD COUNT 3.24 10^6/uL (4.30-6.10); WHITE BLOOD COUNT 13.5 10^3/uL (4.0-10.0)
[2020-08-31 07:49] LABS: CALCIUM LEVEL 7.7 MG/DL (8.5-10.1); CREATININE FOR GFR 4.81 MG/DL (0.70-1.30); GLOMERULAR FILTRATION RATE 13.5 (>56); POTASSIUM SERUM 4.3 MEQ/L (3.5-5.1)
[2020-08-31] MEDS: HumaLOG INSULIN (NovoLOG) PER UNIT SC SCH ×4 (08:44→21:00)
[2020-08-31] MEDS: IRON SUCROSE 100MG 5ML VIAL (J1756 PER 1MG) IV SCH ×2 (09:00→11:24)
[2020-08-31] MEDS: POTASSIUM CHLORIDE 10 MEQ SR TABLET PO SCH ×2 (09:42→21:50)
[2020-08-31] MEDS: MUPIROCIN 2% OINT 22 GM TUBE TOP SCH ×2 (09:42→21:53)
--- NOTE | 2020-08-31 12:39 | IPN ---
PROGRESS NOTE DATE: 08/31/2020 SUBJECTIVE: Mr. Mena is seen this morning on his bedside. His peritoneal dialysis exchange is in progress and effluent is clear. Yesterday, he had some fibrin in his PD fluid and we used Argatroban with good results. I also ordered intravenous iron for him yesterday due to severe iron deficiency anemia, however he declined it. I have discussed with him again today and explained the need for it as the patient has iron deficiency anemia and has required transfusions. He does get diarrhea with any kind of iron preparation. However, we are trying to give him a very small dose of only 50 mg to see if he can tolerate it. He is now agreeable for it. Patient has been eating well and denies any nausea, vomiting, dyspnea or chest pain. OBJECTIVE: VITAL SIGNS: Temperature is 97.4 degrees Fahrenheit, heart rate 90 per minute and respiratory rate 18 per minute. Blood pressure 111/56 mmHg and oxygen saturation 98% on room air. HEENT: Head is atraumatic. NECK: Supple. JVD is difficult to be assessed. HEART: Heart sounds are regular. LUNGS: Clear to auscultation. ABDOMEN: Obese and nontender. Peritoneal dialysis catheter is intact. Left abdominal wall wound is covered with a dressing. EXTREMITIES: No cyanosis or clubbing. He has a remote left above the knee amputation. NEUROLOGIC: He is at his baseline mentation without any focal deficit. LABORATORY DATA: Today's labs showed a WBC count of 13.5, hemoglobin 8.4 and hematocrit 26.8. Sodium 133, potassium is 4.3, BUN 45 and creatinine 4.81. Calcium level is 7.7 and glucose 114. PROBLEMS: 1. Endstage renal disease, patient remains on peritoneal dialysis and we continue with five exchanges per day. This is working very well and he is reasonably well dialyzed. His electrolytes are stable. 2. Anemia, patient has iron deficiency and he is very intolerant of oral iron. I have explained to him about the potential need for intravenous iron supplement. We are going to give him a very small dose of Venofer 50 mg once a day to see if he tolerates it. If he gets diarrhea, then will stop it but if he tolerates then we will continue 50 mg once a day until he is discharged. 3. Pseudomonas UTI with indwelling suprapubic catheter. Patient remains on intravenous Cefepime due to resistance to all oral antibiotics. He is currently afebrile and urine has cleared. 4. Bacteremia. Patient did have positive blood culture for Acinetobacter and Aerococcus which is most likely a contaminant as only one set of culture was reported positive and the other one has only preliminary report with no growth. 5. Protein calorie malnutrition. This is a chronic issue related to chronic infections and patient remains in a high protein diet.
[2020-08-31 14:00] VITALS: BP 110/56
[2020-08-31] MEDS: LOMOTIL 2.5MG/0.025MG TABLET PO PRN (14:19)
--- NOTE | 2020-08-31 15:11 | IPNPDOC ---
Subjective Date Seen The patient was seen on 08/31/20. Subjective Chief Complaint/HPI Patient is comfortable in no distress offers no new complaints, patient seen with Dr. Rodriguez probably needs few more days of IV antibiotics, has a poor IV access has a PICC line consult has been placed. General: Denies: ROS Unobtainable, Chills, Night Sweats, Fatigue, Malaise, Normal Appetite, Other Symptoms Constitutional: Denies: Chills, Fever, Malaise, Night Sweats, Weakness, Fatigue, Weight Loss, Lethargy, Other Eyes: Denies: Pain, Vision change, Conjunctivae inflammation, Eyelid inflammation, Redness, Other ENT: Denies: Head Aches, Ear Pain, Dysphagia, Sinus Congestion, Post Nasal Drip, Sore Throat, Epistaxis, Other Symptoms Skin: Denies: Rash, Lesions, Jaundice, Bruising, Itching, Dry, Breakdown, Nail Changes, Other Pulmonary: Denies: Dyspnea, Cough, Pleuritic Chest Pain, Other Symptoms Cardiovascular: Denies: Chest Pain, Palpitations, Orthopnea, Paroxysmal Noc. Dyspnea, Edema, Lt Headedness, Other Symptoms Gastrointestinal: Denies: Nausea, Vomiting, Abdominal Pain, Diarrhea, Constipation, Melena, Hematochezia, Other Symptoms Genitourinary: Denies: Dysuria, Frequency, Incontinence, Hematuria, Retention, Other Symptoms Hematologic: Denies: Bruising, Bleeding Excessively, Petecchia, Purpura, Enlarged Lymph Nodes, Other Hematologic Endocrine: Denies: Polydipsia, Polyphagia, Polyuria, Heat Intolerance, Cold Intolerance, Other Endocrine Sx Musculoskeletal: Denies: Neck Pain, Back Pain, Shoulder Pain, Arm Pain, Hand Pain, Leg Pain, Foot Pain, Joint Pain, Muscle Pain, Spasms, Other Symptoms Neurological: Denies: Weakness, Numbness, Incoordination, Change in speech, Confusion, Seizures, Other Symptoms Psych: Denies: Mood Normal, Anxiety, Depression, Memory Issues, Thoughts of Self Harm, Anger, Thoughts of Harming Other, Other Psych Objective Physical Examination General Exam: Positive: Alert, Cooperative Eye Exam: Positive: PERRLA, Conjunctiva & lids normal Neck Exam: Positive: Supple Chest Exam: Positive: Clear to auscultation Heart Exam: Positive: Rate Normal, Normal S1, Normal S2 Abdomen Exam: Positive: Normal bowel sounds, Soft Extremity Exam: Positive: Other (No clubbing sinus edema) Neuro Exam: Positive: Other (No focal motor or sensory deficit) Assessment /Plan Problems (1) Pseudomonas urinary tract infection Status: Acute (2) End-stage renal disease on peritoneal dialysis Status: Chronic Plan/VTE VTE Prophylaxis Ordered?: Yes Plan #1: Endstage renal disease, patient remains on peritoneal dialysis and we continue with five exchanges per day. Discussed with Dr. Gary and follow-up appreciated. This is working very well and he is reasonably well dialyzed. Patient's electrolytes are essentially within normal limit, will order a.m. labs #2: Anemia, patient has iron deficiency and he is very intolerant of oral iron. I have explained to him about the potential need for intravenous iron supplement. We are going to give him a very small dose of Venofer 50 mg once a day to see if he tolerates it. If he gets diarrhea, then will stop it but if he tolerates then we will continue 50 mg once a day until he is discharged. #3:Pseudomonas UTI with indwelling suprapubic catheter. Patient remains on intravenous Cefepime due to resistance to all oral antibiotics. He is currently afebrile and urine has cleared. Patient probably need 2 more days of IV antibiotics and also has a poor IV access hence will risk request a PICC line to be placed in. #4:Bacteremia. Patient did have positive blood culture for Acinetobacter and Aerococcus which is most likely a contaminant as only one set of culture was reported positive and the other one has only preliminary report with no growth. VS, I&O, 24H, Fishbone Vital Signs/I&O Vital Signs Date Time Temp Pulse Resp B/P (MAP) Pulse Ox O2 Delivery O2 Flow Rate FiO2 08/31/20 14:00 98.3 97 17 110/56 (74) 97 Room Air I&O- Last 24 Hours up to 6 AM 08/31/20 06:00 Intake Total 9230 ml Output Total 7400 ml Balance 1830 ml Laboratory Data 24H LABS Laboratory Tests 2 08/30/20 16:29: Bedside Glucose (Misc Panel) 140H 08/30/20 20:49: Bedside Glucose (Misc Panel) 151H 08/31/20 07:09: Nucleated Red Blood Cells % (auto) 0.0, Anion Gap 4L, Glomerular Filtration Rate 13.5L, Calcium Level 7.7L 08/31/20 11:29: Bedside Glucose (Misc Panel) 112H CBC/BMP Laboratory Tests 08/31/20 07:09 Microbiology Microbiology 08/27/20 Blood Culture - Final, Complete Acinetobacter Haemolyticus Aerococcus Viridans 08/27/20 Blood Culture - Preliminary, Resulted No Growth after 72 hours. All specime... 08/27/20 Urine Culture - Final, Complete Pseudomonas Aeruginosa PATRICIA WHARTON MD Aug 31, 2020 15:10
[2020-08-31] MEDS ORDERED: LIDOCAINE 1% MDV 20ML VIAL As Ordered ONE (15:43)
[2020-08-31] MEDS ORDERED: SODIUM CHLORIDE 0.9% INJ 10 ML SYR IV PRN (16:35)
--- NOTE | 2020-08-31 17:15 | REP ---
INDICATION: poor access. COMPARISON: None. TECHNIQUE: The procedure was performed under the direct supervision of Dr. Powers. The risks and benefits of the procedure were explained to the patient and informed consent was obtained. The right basilic vein was localized using ultrasound guidance. The skin was prepped and draped in a sterile fashion. 1 mL of 1% lidocaine was used as a local anesthetic. Using ultrasound guidance the basilic vein was cannulated and a 0.018 guidewire was inserted and advanced to the SVC using fluoroscopic guidance, and last image hold technology. The needle was removed and a 5 Mexican dilator and peel-away sheath was inserted over the guide wire. A 5 Mexican dual lumen catheter was cut to length of 42 cm. The dilator was removed and the catheter was inserted over the guide wire with the tip ending in the SVC. The peel-away sheath was removed and the catheter was flushed with heparinized saline as per Hospital protocol. The catheter was affixed to the skin and a sterile dressing was applied. Estimated blood loss: Less than 1 cc The patient tolerated the procedure well and there were no immediate complications. 0.2 minutes of fluoro time was utilized for this procedure. FINDINGS: None IMPRESSION: PICC line insertion right basilic vein with the tip ending in the SVC. <Electronically signed by Grant Henson > 08/31/20 1703 <Electronically signed by Felipe Powers > 08/31/20 171
[2020-08-31] MEDS: SODIUM CHLORIDE 0.9% INJ 10 ML SYR IV SCH (18:00)
[2020-08-31] MEDS: ALBUTEROL 90 MCG/ACT 8GM HFA INHALER INH PRN (21:14)
[2020-08-31] MEDS: ASPIRIN 81MG ENTERIC TABLET PO SCH (21:50)
[2020-08-31] MEDS: ATORVASTATIN 10 MG TAB PO SCH (21:50)
[2020-08-31] MEDS: ASCORBIC ACID 500 MG TAB PO SCH (21:50)
[2020-08-31] MEDS: **NOTE PATIENT COMMENT** MISC XX SCH (21:53)
[2020-08-31 22:00] VITALS: BP 111/56
[2020-08-31] MEDS: hydrOXYzine 25 MG TAB PO PRN (22:31)
[2020-09-01] VITALS (12 sets, daily range): BP systolic 107–123; BP diastolic 50–64
[2020-09-01] MEDS: CEFEPIME HCL 1 GM in D5W MINI-BAG PLUS 50 ML IV SCH (00:26)
[2020-09-01] MEDS ORDERED: ARGATROBAN IV ONE ×2 (01:15→23:20)
[2020-09-01 06:39] LABS: BASO # 0.1 10^3/uL (0.0-0.2); BASO % 0.5 % (0.0-1.0); EOS # 0.4 10^3/uL (0.0-0.5); EOS % 2.3 % (0.0-3.0); HEMATOCRIT 25.1 % (42.0-52.0); HEMOGLOBIN 7.6 g/dl (13.5-17.5); LYMPH # 2.7 10^3/uL (1.5-5.0); LYMPH % 17.9 % (24.0-44.0); MEAN CORPUSCULAR HEMOGLOBIN 24.9 pg (27.0-33.0); MEAN CORPUSCULAR HGB CONC 30.3 g/dl (32.0-36.5); MEAN CORPUSCULAR VOLUME 82.3 fl (80.0-96.0); MONO # 0.9 10^3/uL (0.0-0.8); MONO % 6.1 % (2.0-8.0); NEUTROPHILS # 11.1 10^3/uL (1.5-8.5); NEUTROPHILS % 72.7 % (36.0-66.0); PLATELET COUNT, AUTOMATED 352 10^3/uL (150-450); RED BLOOD COUNT 3.05 10^6/uL (4.30-6.10); WHITE BLOOD COUNT 15.3 10^3/uL (4.0-10.0)
[2020-09-01] MEDS: SODIUM CHLORIDE 0.9% INJ 10 ML SYR IV SCH ×2 (06:46→21:38)
[2020-09-01 07:11] LABS: ALBUMIN 1.6 GM/DL (3.2-5.2); BILIRUBIN,TOTAL 0.3 MG/DL (0.2-1.0); CALCIUM LEVEL 8.2 MG/DL (8.5-10.1); CREATININE FOR GFR 4.68 MG/DL (0.70-1.30); GLOMERULAR FILTRATION RATE 13.9 (>56); POTASSIUM SERUM 5.2 MEQ/L (3.5-5.1); TOTAL PROTEIN 6.2 GM/DL (6.4-8.2)
[2020-09-01] MEDS: HumaLOG INSULIN (NovoLOG) PER UNIT SC SCH ×4 (07:30→21:00)
[2020-09-01] MEDS: MUPIROCIN 2% OINT 22 GM TUBE TOP SCH (09:00)
[2020-09-01] MEDS: NYSTATIN 100,000 UNITS/GM TOPICAL PWD 15 GM TOP PRN (10:16)
[2020-09-01] MEDS: LOMOTIL 2.5MG/0.025MG TABLET PO PRN (10:23)
[2020-09-01] MEDS: IRON SUCROSE 100MG 5ML VIAL (J1756 PER 1MG) IV SCH (10:24)
[2020-09-01] MEDS: ALBUTEROL 90 MCG/ACT 8GM HFA INHALER INH PRN ×2 (11:14→16:17)
[2020-09-01 11:44] LABS: HEMATOCRIT 24.9 % (42.0-52.0); HEMOGLOBIN 7.7 g/dl (13.5-17.5); MEAN CORPUSCULAR HEMOGLOBIN 25.7 pg (27.0-33.0); MEAN CORPUSCULAR HGB CONC 30.9 g/dl (32.0-36.5); PLATELET COUNT, AUTOMATED 359 10^3/uL (150-450); WHITE BLOOD COUNT 14.9 10^3/uL (4.0-10.0)
--- NOTE | 2020-09-01 11:47 | IPNPDOC ---
Subjective Date Seen The patient was seen on 09/01/20. Subjective Chief Complaint/HPI UTI General: Denies: ROS Unobtainable, Chills, Night Sweats, Fatigue, Malaise, Normal Appetite, Other Symptoms Constitutional: Denies: Chills, Fever, Malaise, Night Sweats, Weakness, Fatigue, Weight Loss, Lethargy, Other Pulmonary: Denies: Dyspnea, Cough, Pleuritic Chest Pain, Other Symptoms Cardiovascular: Denies: Chest Pain, Palpitations, Orthopnea, Paroxysmal Noc. Dyspnea, Edema, Lt Headedness, Other Symptoms Gastrointestinal: Denies: Nausea, Vomiting, Abdominal Pain, Diarrhea, Constipation, Melena, Hematochezia, Other Symptoms Musculoskeletal: Denies: Neck Pain, Back Pain, Shoulder Pain, Arm Pain, Hand Pain, Leg Pain, Foot Pain, Joint Pain, Muscle Pain, Spasms, Other Symptoms Objective Physical Examination Neck Exam: Positive: Supple Chest Exam: Positive: Clear to auscultation Heart Exam: Positive: Rate Normal, Normal S1, Normal S2 Abdomen Exam: Positive: Normal bowel sounds, Soft Extremity Exam: Positive: Other (No clubbing sinus edema) Neuro Exam: Positive: Other (No focal motor or sensory deficit) Assessment /Plan Problems (1) Pseudomonas urinary tract infection Status: Acute (2) End-stage renal disease on peritoneal dialysis Status: Chronic Plan/VTE VTE Prophylaxis Ordered?: Yes Plan #1: Endstage renal disease, patient remains on peritoneal dialysis and we continue with five exchanges per day. Discussed with Dr. Gary and follow-up appreciated. This is working very well and he is reasonably well dialyzed. Patient's electrolytes are essentially within normal limit, #2: Anemia, patient has iron deficiency and he is very intolerant of oral iron. I have explained to him about the potential need for intravenous iron supplement. We are going to give him a very small dose of Venofer 50 mg once a day to see if he tolerates it. If he gets diarrhea, then will stop it but if he tolerates then we will continue 50 mg once a day until he is discharged. Patient's hemoglobin is 7.6 will repeat hemoglobin again still low he might need transfusion discussed with Dr. Gary #3:Pseudomonas UTI with indwelling suprapubic catheter. Patient remains on intravenous Cefepime due to resistance to all oral antibiotics. He is currently afebrile and urine has cleared. Patient probably need 2 more days of IV antibiotics and also has a poor IV access hence will risk request a PICC line to be placed in. #4:Bacteremia. Patient did have positive blood culture for Acinetobacter and Aerococcus which is most likely a contaminant as only one set of culture was reported positive and the other one has only preliminary report with no growth. VS, I&O, 24H, Fishbone Vital Signs/I&O Vital Signs Date Time Temp Pulse Resp B/P (MAP) Pulse Ox O2 Delivery O2 Flow Rate FiO2 09/01/20 10:00 95.0 85 18 122/64 (83) 99 Room Air I&O- Last 24 Hours up to 6 AM 09/01/20 06:00 Intake Total 83323 ml Output Total 17832 ml Balance -530 ml Laboratory Data 24H LABS Laboratory Tests 2 08/31/20 16:35: Bedside Glucose (Misc Panel) 115H 08/31/20 20:29: Bedside Glucose (Misc Panel) 141H 09/01/20 06:24: Immature Granulocyte % (Auto) 0.5, Neutrophils (%) (Auto) 72.7H, Lymphocytes (%) (Auto) 17.9L, Monocytes (%) (Auto) 6.1, Eosinophils (%) (Auto) 2.3, Basophils (%) (Auto) 0.5, Neutrophils # (Auto) 11.1H, Lymphocytes # (Auto) 2.7, Monocytes # (Auto) 0.9H, Eosinophils # (Auto) 0.4, Basophils # (Auto) 0.1, Nucleated Red Blood Cells % (auto) 0.0 09/01/20 06:25: Anion Gap 10, Glomerular Filtration Rate 13.9L, Calcium Level 8.2L, Total Bilirubin 0.3, Aspartate Amino Transf (AST/SGOT) 13, Alanine Aminotransferase (ALT/SGPT) 9L, Alkaline Phosphatase 93, Total Protein 6.2L, Albumin 1.6L, Albumin/Globulin Ratio 0.3 09/01/20 11:26: Nucleated Red Blood Cells % (auto) 0.0 CBC/BMP Laboratory Tests 09/01/20 06:24 09/01/20 06:25 09/01/20 11:26 Microbiology Microbiology 08/27/20 Blood Culture - Final, Complete Acinetobacter Haemolyticus Aerococcus Viridans 08/27/20 Blood Culture - Preliminary, Resulted No Growth after 72 hours. All specime... 08/27/20 Urine Culture - Final, Complete Pseudomonas Aeruginosa PATRICIA WHARTON MD Sep 01, 2020 11:47
--- NOTE | 2020-09-01 11:58 | IPN ---
PROGRESS NOTE DATE: 09/01/2020 SUBJECTIVE: Mr. Mena is seen this morning on his bedside. He is feeling about the same. He does report loose stools since he received intravenous iron yesterday. He has no nausea, vomiting, dyspnea or chest pain. His peritoneal dialysis has been functioning well. Last night, he had some fibrin again and was given a dose of Argatroban PHYSICAL EXAMINATION: VITALS: Temperature 97.6 degrees Fahrenheit, heart rate 85 per minute, respiratory rate 18 per minute, blood pressure 122/64 mmHg, and oxygen saturation 99% on room air. HEENT: Head is atraumatic. Neck is supple and without JVD or thyroid enlargement. LUNGS: Clear to auscultation. HEART: Sounds are regular. ABDOMEN: Obese, soft and nontender. Abdominal wall wound on the left side is covered with dressing. Peritoneal dialysis catheter is intact. EXTREMITIES: Without any cyanosis or clubbing. He has left above the knee amputation. NEUROLOGIC: He is awake and alert at his baseline mentation. LABORATORY STUDIES: Today's labs show WBC 15.3, hemoglobin 7.6, hematocrit 25.1. Sodium 136, potassium 5.2, CO2 26, BUN 44, creatinine 4.68, calcium 8.2. Total protein 6.2 and albumin 1.6. PROBLEMS: 1. End-stage renal disease: Patient continues with peritoneal dialysis, which has been functioning well. He is receiving 5 exchanges with 2 liter bag every day and will continue with the same. 2. Hyperkalemia: This is related to potassium supplement and I am going to stop his potassium for now. 3. Anemia: His anemia did get worse without any evidence of blood loss. I will recheck his CBC and consider to transfuse if needed prior to discharge. 4. Iron deficiency: He was given small dose of iron with Venofer 50 mg yesterday. He did get some loose stools with it. It remains to be seen if he will accept it today or not. 5. Pseudomonas UTI: Patient remains on intravenous Cefepime. I feel that he is probably close to completing his therapy and his Cefepime can be stopped. 6. Leukocytosis: His white cell count has increased to 15.3. I am concerned about the possibility of C. diff related to antibiotic use. Will repeat CBC and follow-up. [facility]ERO[facility]
[2020-09-01] MEDS: hydrOXYzine 25 MG TAB PO PRN (16:39)
[2020-09-01] MEDS: **NOTE PATIENT COMMENT** MISC XX SCH (21:00)
[2020-09-01] MEDS: ASPIRIN 81MG ENTERIC TABLET PO SCH (21:37)
[2020-09-01] MEDS: ASCORBIC ACID 500 MG TAB PO SCH (21:37)
[2020-09-01] MEDS: ATORVASTATIN 10 MG TAB PO SCH (21:37)
[2020-09-02] MEDS: MUPIROCIN 2% OINT 22 GM TUBE TOP SCH ×2 (00:02→09:58)
[2020-09-02 00:24] VITALS: BP 111/54
[2020-09-02] MEDS: ALBUTEROL 90 MCG/ACT 8GM HFA INHALER INH PRN ×2 (00:41→10:57)
[2020-09-02] MEDS: CEFEPIME HCL 1 GM in D5W MINI-BAG PLUS 50 ML IV SCH (00:47)
[2020-09-02 01:15] VITALS: BP 122/56
[2020-09-02 02:17] VITALS: BP 128/60
[2020-09-02 02:18] VITALS: BP 128/60
[2020-09-02] MEDS: SODIUM CHLORIDE 0.9% INJ 10 ML SYR IV SCH (05:46)
[2020-09-02 06:00] VITALS: BP 137/62
[2020-09-02 06:03] LABS: HEMATOCRIT 29.9 % (42.0-52.0); HEMOGLOBIN 9.4 g/dl (13.5-17.5); MEAN CORPUSCULAR HEMOGLOBIN 26.3 pg (27.0-33.0); MEAN CORPUSCULAR HGB CONC 31.4 g/dl (32.0-36.5); MEAN CORPUSCULAR VOLUME 83.5 fl (80.0-96.0); PLATELET COUNT, AUTOMATED 336 10^3/uL (150-450); RED BLOOD COUNT 3.58 10^6/uL (4.30-6.10); WHITE BLOOD COUNT 14.3 10^3/uL (4.0-10.0)
[2020-09-02 06:28] LABS: CALCIUM LEVEL 7.6 MG/DL (8.5-10.1); CREATININE FOR GFR 4.63 MG/DL (0.70-1.30); GLOMERULAR FILTRATION RATE 14.1 (>56)
[2020-09-02] MEDS: HumaLOG INSULIN (NovoLOG) PER UNIT SC SCH ×2 (07:30→11:58)
--- NOTE | 2020-09-02 09:45 | DS.PDOC ---
Discharge Summary General Date of Admission Aug 28, 2020 at 15:41 Date of Discharge 09/02/20 Attending Physician: PATRICIA WHARTON MD Discharge Summary PROCEDURES PERFORMED DURING STAY: [None]. ADMITTING DIAGNOSES: 1. [UTI, MICAH on CKD]. DISCHARGE DIAGNOSES: 1. [UTI, acute on CKD, anemia]. COMPLICATIONS/CHIEF COMPLAINT: UTI. HISTORY OF PRESENT ILLNESS: . HOSPITAL COURSE: [ #1: Endstage renal disease, patient remains on peritoneal dialysis and we continue with five exchanges per day. Discussed with Dr. Gary and follow-up appreciated. This is working very well and he is reasonably well dialyzed. Patient's electrolytes are essentially within normal limit, Once cleared from nephrology hopefully he will be discharged home once the social work arrangements are complete #2: Anemia, patient has iron deficiency and he is very intolerant of oral iron. I have explained to him about the potential need for intravenous iron supplement. We are going to give him a very small dose of Venofer 50 mg once a day to see if he tolerates it. If he gets diarrhea, then will stop it but if he tolerates then we will continue 50 mg once a day until he is discharged. Patient hemoglobin was 7.6 yesterday, he received 2 units of transfusion of PRBCs, his hemoglobin is 9.4 today He will follow up with Dr. Gary as an outpatient and once cleared he will be discharged home today #3:Pseudomonas UTI with indwelling suprapubic catheter. Patient remains on intra venous Cefepime due to resistance to all oral antibiotics. He is currently afebrile and urine has cleared. IV antibiotics have been completed patient has a PICC line which most likely will be discontinued once he is discharged home #4:Bacteremia. Patient did have positive blood culture for Acinetobacter and Aerococcus which is most likely a contaminant as only one set of culture was reported positive and the other one has only preliminary report with no growth.] DISCHARGE MEDICATIONS: Please see below. ALLERGIES: Please see below. PHYSICAL EXAMINATION ON DISCHARGE: VITAL SIGNS: Please see below. GENERAL: HEENT: NECK: CARDIOVASCULAR EXAMINATION: RESPIRATORY EXAMINATION: ABDOMINAL EXAMINATION: EXTREMITIES: SKIN: NEUROLOGICAL EXAMINATION: PSYCHIATRIC EXAMINATION: LABORATORY DATA: Please see below. IMAGING: PROGNOSIS: ACTIVITY: [As tolerated]. DIET: DISCHARGE PLAN: DISPOSITION: . DISCHARGE INSTRUCTIONS: 1. . ITEMS TO FOLLOWUP ON ON OUTPATIENT: 1. . DISCHARGE CONDITION: [Stable]. TIME SPENT ON DISCHARGE: Greater than minutes. Vital Signs/I&Os Vital Signs Date Time Temp Pulse Resp B/P (MAP) Pulse Ox O2 Delivery O2 Flow Rate FiO2 09/02/20 06:00 97.6 96 20 137/62 (87) 97 Room Air I&O- Last 24 Hours up to 6 AM 09/02/20 05:59 Intake Total 77797 ml Output Total 70209 ml Balance -121 ml Laboratory Data Labs 24H Laboratory Tests 2 09/01/20 11:26: Nucleated Red Blood Cells % (auto) 0.0 09/01/20 11:52: Bedside Glucose (Misc Panel) 104 09/01/20 17:11: Bedside Glucose (Misc Panel) 136H 09/01/20 20:04: Bedside Glucose (Misc Panel) 186H 09/02/20 05:46: Nucleated Red Blood Cells % (auto) 0.0, Anion Gap 7L, Glomerular Filtration Rate 14.1L, Calcium Level 7.6L CBC/BMP Laboratory Tests 09/01/20 11:26 09/02/20 05:46 FSBS Laboratory Tests Test 09/01/20 11:52 09/01/20 17:11 09/01/20 20:04 Range/Units Bedside Glucose (Misc Panel) 104 136 186 70-105 MG/DL Microbiology Microbiology 08/27/20 Blood Culture - Final, Complete Acinetobacter Haemolyticus Aerococcus Viridans 08/27/20 Blood Culture - Final, Complete NO GROWTH AFTER 5 DAYS 08/27/20 Urine Culture - Final, Complete Pseudomonas Aeruginosa Discharge Medications Scheduled Ascorbic Acid (Vitamin C) 500 Mg Tablet, 500 MG PO QHS, (Reported) Aspirin (Aspirin EC) 81 Mg Tablet.dr, 81 MG PO QHS, (Reported) Atorvastatin Calcium (Atorvastatin Calcium) 10 Mg Tablet, 10 MG PO QHS, (Reported) Ergocalciferol (Vitamin D2) (Vitamin D2) 50,000 Units Cap, 50,000 UNITS PO QWEEK, (Reported) FRIDAYS Fosfomycin Tromethamine (Fosfomycin Tromethamine) 3 Gram Packet, 3 GM PO QWEEK, (Reported) [facility] Mupirocin (Mupirocin) 2 % Oint...g., 1 APPLIC TOP BID, (Reported) APPLY TO DIALYSIS CATH. Potassium Chloride (Potassium Chloride) 10 Meq Capsule.er, 20 MEQ PO BID, (Reported) Scheduled PRN Albuterol Sulfate (Proair Hfa) 8.5 Gm Hfa.aer.ad, 1 PUFF INH Q4H PRN for SHORTNESS OF BREATH, (Reported) Diphenoxylate HCl/Atropine (Lomotil 2.5-0.025 mg Tablet) 1 Each Tablet, 1 TAB PO TID PRN for DIARRHEA, (Reported) Gabapentin (Gabapentin) 100 Mg Capsule, 100 MG PO TID PRN for PAIN, (Reported) Lidocaine (Lidocaine) 5% Adh..patch, 1 PATCH TOP DAILY PRN for PAIN, (Reported) APPLY TO RIGHT KNEE, RIGHT ANKLE OR BACK Nystatin (Nystatin Powder) 15 Gm Powder, 1 DOSE TOP BID PRN for REDNESS/IRRITATION, (Reported) APPLY TO GROIN Tizanidine HCl (Tizanidine HCl) 2 Mg Tablet, 2 MG PO DAILY PRN for MUSCLE SPASMS, (Reported) Allergies Coded Allergies: latex (Verified Allergy, Intermediate, 12/18/19) heparin (Verified Allergy, Mild, 12/18/19) PATRICIA WHARTON MD Sep 02, 2020 09:45
[2020-09-02] MEDS ORDERED: BOUDPST TOP (09:49)
[2020-09-02] MEDS ORDERED: HYDR-3363 PO (09:49)
[2020-09-02] MEDS ORDERED: DARB10SYRN SC (09:49)
[2020-09-02] MEDS: IRON SUCROSE 100MG 5ML VIAL (J1756 PER 1MG) IV SCH (09:57)
[2020-09-02] MEDS: LOMOTIL 2.5MG/0.025MG TABLET PO PRN (11:04)
--- NOTE | 2020-09-02 13:33 | IPN ---
PROGRESS NOTE DATE: 09/02/2020 Mr. Mena is seen this morning on his bedside. He is feeling well and denies any new complaints. Last evening he had some fibrin again in his peritoneal dialysis fluid and was treated with argatroban in his peritoneal dialysis (PD) fluid. He did receive 2 units of packed red blood cells (RBC) yesterday due to worsening anemia. Patient denies any dyspnea or chest pain. PHYSICAL EXAMINATION: Temperature 97.6 degrees Fahrenheit, heart rate 96 per minute, respiratory rate 20 per minute, blood pressure 137/62 mmHg, and oxygen saturation 97% on room air. His head is atraumatic. Neck supple and without jugular venous distention (JVD) or thyroid enlargement. Heart sounds are regular and lungs clear to auscultation. Abdomen soft, distended with peritoneal dialysis solution. Abdominal wall wound on the left upper abdomen is covered with dressing. Extremities without any cyanosis or clubbing. He has a left above-knee amputation previously. Neurologically he is at his baseline mentation without a focal deficit. Today's labs show WBC count 14.3, hemoglobin 9.4, and hematocrit 29.9. Platelets 336. Sodium 133, potassium 5.0, CO2 of 27, BUN 48, and creatinine 4.63. Calcium level 7.6. PROBLEMS: 1. End-stage renal disease. Patient continues with peritoneal dialysis, which is working very well. Once he gets discharged he will resume his home prescription. Nursing staff understands to change his peritoneal dialysis catheter extension set with a Peterson device before discharge. 2. Anemia. His anemia improved following transfusion of 2 units of packed RBC. Unfortunately, he has been very intolerant of any kind of iron supplement and has been mostly dialysis dependent. We did give him a dose of Aranesp. He was also given 50 mg Venofer, which did give him some diarrhea, and he has been declining it. 3. Hyperkalemia. This was related to potassium supplement and has corrected. He will resume his home medications. 4. Urinary tract infection (UTI). Patient has pseudomonas UTI with chronic indwelling suprapubic catheter. He has been treated with 1 week of IV antibiotics, cefepime. He is going to be discharged to home today. DISPOSITION: Patient can be discharged to home today and followup in the outpatient dialysis clinic next week.
[2020-09-02 14:00] VITALS: BP 121/65
== END 2020-09-02 16:05 | disposition home health service (06) | DRG 698 ==
LOC: M ED 16:32 → EDBD 16:32 → M ED INP 16:33 → M MSPAV 08-28 02:41 → OBSVTOIN 08-28 15:41
PROVIDERS: ADMIT Internal Medicine; ATTEND Internal Medicine
PROC: 3E1M39Z Irrigation of Peritoneal Cavity using Dialysate, Percutaneous Approach (ICD-10-PCS; principal; 2020-08-30)
PROC: 02HV33Z Insertion of Infusion Device into Superior Vena Cava, Percutaneous Approach (ICD-10-PCS; 2020-08-31)
PROC: 30233N1 Transfusion of Nonautologous Red Blood Cells into Peripheral Vein, Percutaneous Approach (ICD-10-PCS; 2020-09-01)
DX: T83.518A Infection and inflammatory reaction due to other urinary catheter, initial encounter (principal); N18.6 End stage renal disease; G82.20 Paraplegia, unspecified; I50.32 Chronic diastolic (congestive) heart failure; N25.81 Secondary hyperparathyroidism of renal origin; E46 Unspecified protein-calorie malnutrition; E87.1 Hypo-osmolality and hyponatremia; E78.5 Hyperlipidemia, unspecified; E87.6 Hypokalemia; D50.9 Iron deficiency anemia, unspecified; I95.89 Other hypotension; E11.22 Type 2 diabetes mellitus with diabetic chronic kidney disease; G35 Multiple sclerosis; B96.1 Klebsiella pneumoniae [K. pneumoniae] as the cause of diseases classified elsewhere; Z99.2 Dependence on renal dialysis; Z20.822 Contact with and (suspected) exposure to COVID-19; Z79.82 Long term (current) use of aspirin; Z79.899 Other long term (current) drug therapy; Z88.8 Allergy status to other drugs, medicaments and biological substances; Z91.040 Latex allergy status; Z95.0 Presence of cardiac pacemaker; Z89.612 Acquired absence of left leg above knee; Y84.6 Urinary catheterization as the cause of abnormal reaction of the patient, or of later complication, without mention of misadventure at the time of the procedure